=== PATIENT | female | born 1995 | race Caucasian/White ===

== ENCOUNTER 2017-08-31 10:09 | Day surgery (SDC) | payer OTHER ==
[2017-08-29 17:56] VITALS: BMI 18.6
[~2017-08-31 10:09] MED LIST: LACTATED RINGERS 1,000 ML IV SCH
[2017-08-31 11:21] VITALS: RESP 16; TEMP 98.9
[2017-08-31] MEDS ORDERED: LACTATED RINGERS 1,000 ML IV ONE (11:24)
[2017-08-31] MEDS ORDERED: PROPOFOL 10 MG/ML 20 ML VIAL IV ONE (12:18)
--- NOTE | 2017-08-31 12:40 | P.PCN ---
Date of Procedure: 08/31/17 Procedure(s) Performed: Brief history: Patient is a pleasant 22-year-old white female, scheduled for an elective upper endoscopy as well as colonoscopy as a part of evaluation of abdominal pain mostly in the epigastric area and change in bowel habits for the last 3 weeks' duration. She was started on Prilosec as well as Bentyl with relief in her symptoms. Procedure performed: Esophagogastroduodenoscopy with biopsy Colonoscopy Preoperative diagnosis: Epigastric pain Change in bowel habits Anesthesia: MAC Procedure: After informed consent was obtained from the patient was brought into the endoscopy unit and IV sedation was administered by anesthesia under continuous monitoring. Initially upper endoscopy was done. The Olympus GF 160 video endoscope was inserted inserted into the mouth and esophagus intubated without any difficulty and was gradually advanced into the stomach and duodenum and carefully examined. The bulb and second part of the duodenum appeared normal. The scope was then withdrawn into the stomach adequately insufflated with air and upon careful examination the antrum had patchy areas of erythema consistent with gastritis and biopsies were done from this area. The body, cardia and fundus appeared normal. The scope was then withdrawn into the esophagus. The GE junction was located at 40 cm to the incisors. It appeared regular with no erythema erosions or ulcerations. biopsies were done from the distal esophagus. Rest of the esophagus appeared normal. Patient tolerated the procedure well. At this time the patient continued to remain sedation. Initial digital rectal examination was normal. Olympus CF 160 video colonoscope was then inserted into the rectum and gradually advanced to the cecum without any difficulty. Careful examination was performed as the scope was gradually being withdrawn. The prep was excellent. terminal ileum was intubated and 20 cm visualized and appeared normal. The cecum, ascending colon, transverse colon, descending colon, sigmoid colon and rectum appeared normal. Retroflexion was performed in the rectum and no lesions were noted. Patient tolerated the procedure well. Impression: 1. Upper endoscopy revealed minimal antral gastritis but no evidence of esophagitis or peptic ulcer disease 2. Colonoscopy is within normal limits with no evidence of colitis or colorectal neoplasia. Recommendations: Findings of this examination were discussed with the patient as well as her family. She was advised to follow with the biopsy results. She will continue with Prilosec 20 mg daily and follow antireflux measures.
[2017-08-31 13:05] VITALS: BP 111/74; PULSE 70
== END 2017-08-31 13:19 | disposition home or self-care (01) ==
LOC: ORWHC2ENDO 10:09
PROVIDERS: ATTEND Internal Medicine Gastroenterology
DX: K29.50 Unspecified chronic gastritis without bleeding (principal); Z87.891 Personal history of nicotine dependence; I47.1 Supraventricular tachycardia; Z79.2 Long term (current) use of antibiotics; Z79.899 Other long term (current) drug therapy
CPT/HCPCS: 81025; 45378; 43239; J2704; 88305

== ENCOUNTER 2017-11-01 21:42 | Inpatient (IN) | payer OTHER ==
[2017-11-01] MEDS ORDERED: ACETAMINOPHEN TAB 500 MG TAB PO STA (23:20)
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
[2017-11-02 01:06] LABS: Amphetamine Screen,Urine Not Detected (NotDetected); Barbiturate Screen,Urine Detected (NotDetected); Benzodiazepines Screen,Urine Not Detected (NotDetected); Cocaine Screen,Urine Not Detected (NotDetected); Methadone Screen, Urine Not Detected (NotDetected); Opiate Screen,Urine Not Detected (NotDetected); Oxycodone Screen, Urine Not Detected (NotDetected); Phencyclidine Screen,Urine Not Detected (NotDetected); Tricyclic Antidepressant,Urine Not Detected (NotDetected); Urn Cannabinoid Scrn Detected (NotDetected)
[2017-11-02 03:01] VITALS: RESP 16
[2017-11-02] MEDS ORDERED: MAGNESIUM HYDROXIDE 2,400 MG/10 ML CUP PO PRN (05:05)
[2017-11-02] MEDS ORDERED: LORazepam 1 MG TAB PO PRN (05:05)
[2017-11-02] MEDS ORDERED: ACETAMINOPHEN TAB 325 MG TAB PO PRN (05:05)
[2017-11-02] MEDS ORDERED: MAG HYDROX/AL HYDROX/SIMETH 30 ML CUP PO PRN (05:05)
[2017-11-02 06:20] VITALS: BP 99/67; PULSE 75; TEMP 98.2; BMI 19.1
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
[2017-11-02] MEDS ORDERED: LORATADINE 10 MG TAB PO SCH (09:00)
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
[2017-11-02] MEDS: IPRATROPIUM-ALBUTEROL 3 ML NEB INHALATION SCH ×2 (10:41→14:03)
[2017-11-02 11:42] LABS: Basophils % (A) 1 %; Eosinophils # (A) 0.2 k/uL (0-0.7); Eosinophils % (A) 4 %; HCT 39.2 % (34.0-46.0); HGB 13.3 gm/dL (11.4-16.0); Lymphocytes # (A) 1.3 k/uL (1.0-4.8); Lymphocytes % (A) 27 %; MCH 30.7 pg (25.0-35.0); MCHC 33.9 g/dL (31.0-37.0); MCV 90.6 fL (80.0-100.0); Mean Platelet Volume 7.5; Monocytes # (A) 0.6 k/uL (0-1.0); Monocytes % (A) 12 %; Neutrophils # (A) 2.6 k/uL (1.3-7.7); Neutrophils % (A) 54 %; Platelet Count 258 k/uL (150-450); RBC 4.33 m/uL (3.80-5.40); WBC 4.8 k/uL (3.8-10.6)
[2017-11-02] MEDS ORDERED: PRENATAL VIT-IRON-FOLIC ACID 1 EACH CAP PO SCH (12:00)
[2017-11-02 12:03] LABS: ALT 27 U/L (9-52); AST 20 U/L (14-36); Albumin 4.3 g/dL (3.5-5.0); Alkaline Phosphatase 66 U/L (38-126); Anion Gap 13 mmol/L; Blood Urea Nitrogen 8 mg/dL (7-17); Calcium 9.5 mg/dL (8.4-10.2); Carbon Dioxide 26 mmol/L (22-30); Chloride 104 mmol/L (98-107); Cholesterol 109 mg/dL (<200); Glucose 103 mg/dL (74-99); HDL Cholesterol 38 mg/dL (40-60); LDL Cholesterol,Calculated 53 mg/dL (0-99); Potassium 4.4 mmol/L (3.5-5.1); Sodium 143 mmol/L (137-145); Total Bilirubin 0.2 mg/dL (0.2-1.3); Total Protein 7.4 g/dL (6.3-8.2); Triglycerides 88 mg/dL (<150)
--- NOTE | 2017-11-02 12:59 | XR ---
EXAMINATION TYPE: XR chest 2V DATE OF EXAM: 11/02/2017 COMPARISON: Chest x-ray January 29, 2013 HISTORY: Cough and congestion. TECHNIQUE: Frontal and lateral views of the chest are obtained. FINDINGS: There is no focal air space opacity, pleural effusion, or pneumothorax seen. The cardiac silhouette size is within normal limits. The osseous structures are intact. IMPRESSION: No suspicious acute infiltrate.
--- NOTE | 2017-11-02 13:36 | P.PN ---
Subjective Progress Note Date: 11/02/17 Principal diagnosis: pos UCG 22 yo female that is admitted on the psychiatric unit for depression. Patient was noted have a positive urine test. Last menstrual period status to be 10/02/2017. Beta hCG was ordered and found to be 30. She did discuss with the nurse her desire to keep this Objective - Vital Signs Vital signs: Vital Signs Temp 98.2 F 11/02/17 05:04 Pulse 75 11/02/17 05:04 Resp 16 11/02/17 05:04 BP 99/67 11/02/17 05:04 Pulse Ox 100 11/02/17 03:00 Intake & Output 11/01/17 11/02/17 11/02/17 18:59 06:59 18:59 Weight 58.8 kg 58.8 kg - Exam Defer - Labs CBC & Chem 7: 11/02/17 11:12 11/02/17 11:12 Labs: Abnormal Lab Results - Last 24 Hours (Table) 11/02/17 11/02/17 Range/Units 00:06 11:12 Creatinine 0.50 L (0.52-1.04) mg/dL Glucose 103 H (74-99) mg/dL HDL Cholesterol 38 L (40-60) mg/dL Ur Barbiturates Screen Detected H (NotDetected) U Marijuana (THC) Screen Detected H (NotDetected) Assessment and Plan Assessment: Early Plan: We'll plan to repeat Quant BHCG in 48 hours after initial blood draw. Beta hCG is too low at this time to visualize anything with transvaginal ultrasound will follow labs
--- NOTE | 2017-11-02 13:37 | P.DS ---
Providers Date of admission: 11/02/17 02:54 Expected date of discharge: 11/02/17 Attending physician: Austin Rogel Consults: 11/02/17 05:05 Consult Physician Routine Consulting Provider: Mariano Darby Consult Reason/Comments: medical management Do you want consulting provider notified?: Already Contacted 11/02/17 06:39 Consult Physician Routine Consulting Provider: Pili Jaimes Consult Reason/Comments: newly dx Do you want consulting provider notified?: Yes, Notify in am Primary care physician: Yvan [facility] Course: Patient had her psychiatric evaluation, physical examination and psychosocial evaluation. After psychiatric evaluation it was agreed not to start her on any psychiatric medications since she is and psychiatric medications are probably not useful for her condition. Patient had talked to her boyfriend who apparently is very supportive and welcomes her home and patient agreed to continue with outpatient treatment including DBT. beam worker contacted the boyfriend who confirmed with the discharge plan. Condition on discharge: This is a ambulatory looking female with good hygiene. She is polite and cooperative she does not show any psychomotor agitation or retardation. Her speech is spontaneous relevant and goal-directed. She continues to deny suicide and homicide thoughts. She does not have any clinical evidence of hallucinations or delusional thinking. She is well oriented with adequate memory concentration general fund of knowledge etc. However insight and judgment have not changes significantly since this morning. Diagnosis on discharge: Borderline personality disorder F 60.3. Cannabis use disorder severe F 12.20. History of alcohol use disorder severe F 10.20. NKDA. History of SVT and Yi Parkinson's syndrome. First month . Patient was advised and agreed to learn better coping skills through DBT, seek alcohol and drug counseling, not to drink alcohol or use drugs. Patient Condition at Discharge: Good Plan - Discharge Summary Discharge Rx Participant: No New Discharge Prescriptions: New Acetaminophen Tab [Tylenol] 650 mg PO Q4HR PRN tab PRN Reason: Pain/Discomfort Ipratropium-Albuterol Nebulize [Duoneb 0.5 mg-3 mg/3 ml Soln] 3 ml INHALATION RT-QID ampul.neb Loratadine [Claritin] 10 mg PO DAILY tab Glm-Bvgo-Tfwdc Acid [-U Capsule (formulary)] 1 each PO DAILY @1200 cap Continue methylPREDNISolone [Medrol Dose Pack] See Taper PO DIRECTED Butalb/APAP/Caff 50-325-40Mg [Fioricet 50-325-40] 1 tab PO Q4H PRN PRN Reason: Headache Omeprazole [PriLOSEC] 20 mg PO AC-BID Discontinued Sertraline HCl [Zoloft] 50 mg PO DAILY ALPRAZolam [Xanax] 0.5 mg PO DAILY PRN PRN Reason: Anxiety Discharge Medication List Butalb/APAP/Caff 50-325-40Mg [Fioricet 50-325-40] 1 tab PO Q4H PRN 11/01/17 [ History] Omeprazole [PriLOSEC] 20 mg PO AC-BID 11/01/17 [History] methylPREDNISolone [Medrol Dose Pack] See Taper PO DIRECTED 11/01/17 [History ] Acetaminophen Tab [Tylenol] 650 mg PO Q4HR PRN tab 11/02/17 [Rx] Ipratropium-Albuterol Nebulize [Duoneb 0.5 mg-3 mg/3 ml Soln] 3 ml INHALATION RT -QID ampul.neb 11/02/17 [Rx] Loratadine [Claritin] 10 mg PO DAILY tab 11/02/17 [Rx] Bpn-Znpa-Mgxpr Acid [-U Capsule (formulary)] 1 each PO DAILY@ 1200 cap 11/02/17 [Rx] Follow up Appointment(s)/Referral(s): [facility] [Outside] - 11/05/17 9:00 am (w/ Brenda Serrano. Patient to arrive at 8:30am for paperwork) Yvan Dixon DO [Primary Care Provider] - 1-2 days Activity/Diet/Wound Care/Special Instructions: Activity and Diet as tolerated. Avoid the use of street drugs and alcohol. Take all medications as prescribed, when you are in need of refills contact your medical doctor or psychiatrist. Please go to all scheduled outpatient appointments for aftercare treatment. If symptoms return or worsen you can call the crisis line @ and/or return to the nearest emergency room for evaluation.
== END 2017-11-02 15:08 | disposition home or self-care (01) | DRG 881 ==
LOC: EC 21:42 → 3MHU 11-02 02:54
PROVIDERS: ADMIT Psychiatry & Neurology Psychiatry; ATTEND Psychiatry & Neurology Psychiatry
DX: F32.9 Major depressive disorder, single episode, unspecified (principal); F60.3 Borderline personality disorder; F12.20 Cannabis dependence, uncomplicated; F10.20 Alcohol dependence, uncomplicated; F41.9 Anxiety disorder, unspecified; F90.9 Attention-deficit hyperactivity disorder, unspecified type; I45.6 Pre-excitation syndrome; M54.30 Sciatica, unspecified side; X78.9XXA Intentional self-harm by unspecified sharp object, initial encounter; Z32.01 Encounter for pregnancy test, result positive; Z81.8 Family history of other mental and behavioral disorders; Z83.2 Family history of diseases of the blood and blood-forming organs and certain disorders involving the immune mechanism; G56.01 Carpal tunnel syndrome, right upper limb; Z91.5 Personal history of self-harm; Z79.52 Long term (current) use of systemic steroids; T14.8XXA Other injury of unspecified body region, initial encounter; X83.8XXA Intentional self-harm by other specified means, initial encounter
CPT/HCPCS: 71046; 80053; 80061; 80306; 81025; 82075; 83036; 84443; 84702; 85025; 99284

== ENCOUNTER 2018-04-04 01:50 | Inpatient (IN) | payer OTHER ==
[2018-04-04] MEDS ORDERED: SODIUM CHLORIDE 0.9% 1,000 ML IV STA (02:02)
--- NOTE | 2018-04-04 02:13 | ED ---
General Adult HPI - General Chief complaint: Trauma Stated complaint: Mental health Time Seen by Provider: 04/04/18 01:51 Source: patient, police, EMS Mode of arrival: EMS Limitations: no limitations - History of Present Illness Initial comments: Marichuy is a 22-year-old female with a history of depression is brought to the ED today via EMS and police for evaluation of suicidal thoughts and an attempted hanging. Patient became upset this evening. She has been out of her Seroquel for 3 days. She attempted to hang herself using an extension cord. When that was unsuccessful she decided that she would kill herself by dropping her behavioral science chair in the bathtub. Her boyfriend could hear her running a bath and she wasn't responsive he broke down the door to her bathroom and found her. The which time he decided he needed to call police to assist in caring for her. Patient states she has a history of depression, she was admitted to our facility a month ago. She was discharged on oral Seroquel which she was taking until she ran out a few days ago. Patient is tearful and apologetic. - Related Data Home Medications Medication Instructions Recorded Confirmed Butalb/APAP/Caff 50-325-40Mg 1 tab PO Q4H PRN 11/01/17 11/02/17 [Fioricet 50-325-40] Omeprazole [PriLOSEC] 20 mg PO AC-BID 11/01/17 11/02/17 methylPREDNISolone [Medrol Dose See Taper PO DIRECTED 11/01/17 11/02/17 Pack] Previous Rx's Medication Instructions Recorded Acetaminophen Tab [Tylenol] 650 mg PO Q4HR PRN tab 11/02/17 Ipratropium-Albuterol Nebulize 3 ml INHALATION RT-QID ampul.neb 11/02/17 [Duoneb 0.5 mg-3 mg/3 ml Soln] Loratadine [Claritin] 10 mg PO DAILY tab 11/02/17 Lis-Plui-Mkorn Acid 1 each PO DAILY@1200 cap 11/02/17 [-U Capsule (formulary)] Allergies Allergy/AdvReac Type Severity Reaction Status Date / Time No Known Allergies Allergy Verified 11/02/17 05:52 Review of Systems ROS Statement: Those systems with pertinent positive or pertinent negative responses have been documented in the HPI. ROS Other: All systems not noted in ROS Statement are negative. Past Medical History Additional Past Medical History / Comment(s): SVT, WPW Syndrome, frequent UTI tx with antibiotics History of Any Multi-Drug Resistant Organisms: None Reported Past Surgical History: Tonsillectomy Additional Past Surgical History / Comment(s): apicoectomy front tooth,pyloric stenosis surgery as Past Anesthesia/Blood Transfusion Reactions: No Reported Reaction Past Psychological History: Anxiety, Bipolar, Depression, Panic Disorder Smoking Status: Current every day smoker Past Alcohol Use History: Occasional Past Drug Use History: Marijuana - Past Family History Brother(s) Family Medical History: Blood Disorder, Deep Vein Thrombosis (DVT), Pulmonary Embolus Additional Family Medical History / Comment(s): antithrombin 3 bleeding disorder Father Family Medical History: Sleep Apnea/CPAP/BIPAP General Exam - General Exam Comments Initial Comments: GENERAL: Patient appears anxious, is crying HENT: Normocephalic, Atraumatic. Neck has ligature jaimes on the bilateral anterior lateral sides of the neck overlying the platysma. There is no carotid bruit bilaterally. No significant lymphadenopathy is noted. Oropharynx is clear. Moist mucous membranes. Neck has full range of motion without eliciting any pain. EYES: The sclera were anicteric and conjunctiva were pink and moist. Extraocular movements were intact and pupils were equal round and reactive to light. Eyelids were unremarkable. PULMONARY: Tachypnea secondary to crying. Unlabored respirations. Good breath sounds bilaterally. No audible rales rhonchi or wheezing was noted. CARDIOVASCULAR: There is a regular rate and rhythm without any murmurs gallops or rubs. Bilateral upper and lower extremities are warm and well perfused ABDOMEN: Soft and nontender with normal bowel sounds. SKIN: Ligature jaimes on the neck, no other injuries noted NEUROLOGIC: Patient is alert and oriented x3. Cranial nerves II through XII are grossly intact. Motor and sensory are also intact. Normal speech, volume and content. Symmetrical smile. MUSCULOSKELETAL: Normal extremities with adequate strength and full range of motion. No lower extremity swelling or edema. No calf tenderness. LYMPHATICS: No significant lymphadenopathy is noted PSYCHIATRIC: Depressed, suicidal, tearful and apologetic Limitations: no limitations Limitations: no limitations Course Vital Signs 04/04/18 01:52 Temperature 97.5 F L Pulse Rate 95 Respiratory 18 Rate Blood Pressure 123/86 O2 Sat by Pulse 98 Oximetry EKG Findings - EKG Comments: EKG Findings:: EKG obtained at 3:04 AM, rate of 76, rhythm is sinus, normal axis , normal intervals, MT 180, QRS 92, QTc 445. There are no acute ST elevations or depressions no evidence of acute ischemia or infarction. Medical Decision Making - Medical Decision Making Patient arrived in EMS and police custody for a psychiatric evaluation after an attempted hanging The patient was seen and evaluated upon arrival - it was noted that the patient had ligature jaimes on her neck at which time a level II trauma was activated Labs reveal elevated alcohol level mildly elevated lactic acids, IV fluids were infused Imaging with no acute findings Patient was determined to be sober at 5:10 AM, EPS was notified, they evaluated the patient, they recommend inpatient psychiatric hospitalization. Patient declined to sign in voluntarily and assert was completed. After this was completed the patient then asked agreed to sign in voluntarily. Either way the patient will be admitted to a psychiatric facility - Lab Data Result diagrams: 04/04/18 02:10 04/04/18 02:10 Lab Results 04/04/18 04/04/18 04/04/18 Range/Units 02:10 02:10 02:10 WBC 4.6 (3.8-10.6) k/uL RBC 4.36 (3.80-5.40) m/uL Hgb 13.6 (11.4-16.0) gm/dL Hct 40.8 (34.0-46.0) % MCV 93.7 (80.0-100.0) fL MCH 31.2 (25.0-35.0) pg MCHC 33.3 (31.0-37.0) g/dL RDW 12.9 (11.5-15.5) % Plt Count 337 (150-450) k/uL Neutrophils % 46 % Lymphocytes % 45 % Monocytes % 4 % Eosinophils % 2 % Basophils % 1 % Neutrophils # 2.1 (1.3-7.7) k/uL Lymphocytes # 2.0 (1.0-4.8) k/uL Monocytes # 0.2 (0-1.0) k/uL Eosinophils # 0.1 (0-0.7) k/uL Basophils # 0.0 (0-0.2) k/uL PT (9.0-12.0) sec INR (<1.2) APTT (22.0-30.0) sec Sodium 143 (137-145) mmol/L Potassium 3.6 (3.5-5.1) mmol/L Chloride 112 H (98-107) mmol/L Carbon Dioxide 19 L (22-30) mmol/L Anion Gap 12 mmol/L BUN 9 (7-17) mg/dL Creatinine 0.63 (0.52-1.04) mg/dL Est GFR (CKD-EPI)AfAm >90 (>60 ml/min/1.73 sqM) Est GFR (CKD-EPI)NonAf >90 (>60 ml/min/1.73 sqM) Glucose 95 (74-99) mg/dL Lactic Ac Sepsis Rflx Plasma Lactic Acid Huang (0.7-2.0) mmol/L Calcium 9.5 (8.4-10.2) mg/dL Total Bilirubin 0.3 (0.2-1.3) mg/dL AST 18 (14-36) U/L ALT 19 (9-52) U/L Alkaline Phosphatase 48 (38-126) U/L Total Creatine Kinase 86 (30-135) U/L CK-MB (CK-2) 0.8 (0.0-2.4) ng/mL CK-MB (CK-2) Rel Index 0.9 Troponin I <0.012 (0.000-0.034) ng/mL Total Protein 7.7 (6.3-8.2) g/dL Albumin 4.4 (3.5-5.0) g/dL Amylase 64 (30-110) U/L Lipase 78 (23-300) U/L Serum Alcohol 128 mg/dL Blood Type Blood Type Recheck Antibody Screen Spec Expiration Date 04/04/18 04/04/18 04/04/18 Range/Units 02:10 02:10 02:10 WBC (3.8-10.6) k/uL RBC (3.80-5.40) m/uL Hgb (11.4-16.0) gm/dL Hct (34.0-46.0) % MCV (80.0-100.0) fL MCH (25.0-35.0) pg MCHC (31.0-37.0) g/dL RDW (11.5-15.5) % Plt Count (150-450) k/uL Neutrophils % % Lymphocytes % % Monocytes % % Eosinophils % % Basophils % % Neutrophils # (1.3-7.7) k/uL Lymphocytes # (1.0-4.8) k/uL Monocytes # (0-1.0) k/uL Eosinophils # (0-0.7) k/uL Basophils # (0-0.2) k/uL PT 10.2 (9.0-12.0) sec INR 1.0 (<1.2) APTT 24.0 (22.0-30.0) sec Sodium (137-145) mmol/L Potassium (3.5-5.1) mmol/L Chloride (98-107) mmol/L Carbon Dioxide (22-30) mmol/L Anion Gap mmol/L BUN (7-17) mg/dL Creatinine (0.52-1.04) mg/dL Est GFR (CKD-EPI)AfAm (>60 ml/min/1.73 sqM) Est GFR (CKD-EPI)NonAf (>60 ml/min/1.73 sqM) Glucose (74-99) mg/dL Lactic Ac Sepsis Rflx Plasma Lactic Acid Huang 3.0 H* (0.7-2.0) mmol/L Calcium (8.4-10.2) mg/dL Total Bilirubin (0.2-1.3) mg/dL AST (14-36) U/L ALT (9-52) U/L Alkaline Phosphatase (38-126) U/L Total Creatine Kinase (30-135) U/L CK-MB (CK-2) (0.0-2.4) ng/mL CK-MB (CK-2) Rel Index Troponin I (0.000-0.034) ng/mL Total Protein (6.3-8.2) g/dL Albumin (3.5-5.0) g/dL Amylase (30-110) U/L Lipase (23-300) U/L Serum Alcohol mg/dL Blood Type O Positive Blood Type Recheck No Antibody Screen NEGATIVE Spec Expiration Date 04/07/2018 - 230904/04/18 Range/Units 02:55 WBC (3.8-10.6) k/uL RBC (3.80-5.40) m/uL Hgb (11.4-16.0) gm/dL Hct (34.0-46.0) % MCV (80.0-100.0) fL MCH (25.0-35.0) pg MCHC (31.0-37.0) g/dL RDW (11.5-15.5) % Plt Count (150-450) k/uL Neutrophils % % Lymphocytes % % Monocytes % % Eosinophils % % Basophils % % Neutrophils # (1.3-7.7) k/uL Lymphocytes # (1.0-4.8) k/uL Monocytes # (0-1.0) k/uL Eosinophils # (0-0.7) k/uL Basophils # (0-0.2) k/uL PT (9.0-12.0) sec INR (<1.2) APTT (22.0-30.0) sec Sodium (137-145) mmol/L Potassium (3.5-5.1) mmol/L Chloride (98-107) mmol/L Carbon Dioxide (22-30) mmol/L Anion Gap mmol/L BUN (7-17) mg/dL Creatinine (0.52-1.04) mg/dL Est GFR (CKD-EPI)AfAm (>60 ml/min/1.73 sqM) Est GFR (CKD-EPI)NonAf (>60 ml/min/1.73 sqM) Glucose (74-99) mg/dL Lactic Ac Sepsis Rflx Y Plasma Lactic Acid Huang (0.7-2.0) mmol/L Calcium (8.4-10.2) mg/dL Total Bilirubin (0.2-1.3) mg/dL AST (14-36) U/L ALT (9-52) U/L Alkaline Phosphatase (38-126) U/L Total Creatine Kinase (30-135) U/L CK-MB (CK-2) (0.0-2.4) ng/mL CK-MB (CK-2) Rel Index Troponin I (0.000-0.034) ng/mL Total Protein (6.3-8.2) g/dL Albumin (3.5-5.0) g/dL Amylase (30-110) U/L Lipase (23-300) U/L Serum Alcohol mg/dL Blood Type Blood Type Recheck Antibody Screen Spec Expiration Date Disposition Clinical Impression: Suicidal ideation, Suicide attempt by hanging Disposition: TRANSFER TO PSYCH HOSP/UNIT Condition: Serious Is patient prescribed a controlled substance at d/c from ED?: No Referrals: Santiago Mahoney MD [Primary Care Provider] - 1-2 days
--- NOTE | 2018-04-04 02:32 | XR ---
EXAMINATION TYPE: XR chest 1V portable DATE OF EXAM: 04/04/2018 COMPARISON: 11/02/2017 HISTORY: Attempted hanging. Trauma. Chest pain. TECHNIQUE: Single frontal view of the chest is obtained. FINDINGS: Heart and mediastinum are normal. Lungs are clear. Diaphragm is normal. Bony thorax appear s normal. IMPRESSION: Normal chest. No change.
[2018-04-04 02:33] LABS: Basophils % (A) 1 %; Eosinophils # (A) 0.1 k/uL (0-0.7); Eosinophils % (A) 2 %; HCT 40.8 % (34.0-46.0); HGB 13.6 gm/dL (11.4-16.0); Lymphocytes % (A) 45 %; MCH 31.2 pg (25.0-35.0); MCHC 33.3 g/dL (31.0-37.0); MCV 93.7 fL (80.0-100.0); Mean Platelet Volume 6.5; Monocytes # (A) 0.2 k/uL (0-1.0); Monocytes % (A) 4 %; Neutrophils # (A) 2.1 k/uL (1.3-7.7); Neutrophils % (A) 46 %; Platelet Count 337 k/uL (150-450); RBC 4.36 m/uL (3.80-5.40); RDW 12.9 % (11.5-15.5); WBC 4.6 k/uL (3.8-10.6)
--- NOTE | 2018-04-04 02:38 | CT ---
EXAMINATION TYPE: CT angio neck DATE OF EXAM: 04/04/2018 HISTORY: pt. attempted to hang herself COMPARISON: None CT DLP: 309 mGycm. Automated Exposure Control for Dose Reduction was Utilized. TECHNIQUE: CTA scan of the neck is performed with IV Contrast, patient injected with 65 mL of Isovue 370, axial images are obtained, coronal and sagittal reformatted images are reviewed. Three-D recons tructed images are created on an independent workstation and reviewed. FINDINGS: There is normal branching pattern of the great vessels on the aortic arch. There is bilateral patency of the vertebral arteries which are fairly symmetric. There is arterial flow in the common internal and external carotid arteries bilaterally. There is no evidence of stenosis. There is no evidence of aneurysm or neovascularity. There is no evidence of dissection. Aortic arch appears normal. The cervi margot soft tissues are unremarkable. There are a few anterior triangle cervical lymph nodes that measur e up to 9 x 6 mm. Prevertebral soft tissues appear normal. Cervical spine appears normal. IMPRESSION: Normal CT angiogram of the neck.
[2018-04-04 02:43] LABS: ALT 19 U/L (9-52); AST 18 U/L (14-36); Albumin 4.4 g/dL (3.5-5.0); Alkaline Phosphatase 48 U/L (38-126); Amylase 64 U/L (30-110); Anion Gap 12 mmol/L; Blood Urea Nitrogen 9 mg/dL (7-17); Calcium 9.5 mg/dL (8.4-10.2); Carbon Dioxide 19 mmol/L (22-30); Chloride 112 mmol/L (98-107); Glucose 95 mg/dL (74-99); Lipase 78 U/L (23-300); Potassium 3.6 mmol/L (3.5-5.1); Prothrombin Time 10.2 sec (9.0-12.0); Sodium 143 mmol/L (137-145); Total Bilirubin 0.3 mg/dL (0.2-1.3); Total Protein 7.7 g/dL (6.3-8.2)
[2018-04-04 02:54] LABS: Creatine Kinase 86 U/L (30-135)
[2018-04-04 02:55] LABS: Alcohol 128 mg/dL
[2018-04-04 03:07] LABS: Creatine Kinase MB 0.8 ng/mL (0.0-2.4); Troponin I <0.012 ng/mL (0.000-0.034)
[2018-04-04] MEDS ORDERED: SODIUM CHLORIDE 0.9% 1,000 ML IV ONE (03:41)
[2018-04-04] MEDS ORDERED: LORazepam 1 MG TAB PO PRN (09:06)
[2018-04-04] MEDS ORDERED: MAGNESIUM HYDROXIDE 2,400 MG/10 ML CUP PO PRN (09:06)
[2018-04-04] MEDS ORDERED: MAG HYDROX/AL HYDROX/SIMETH 30 ML CUP PO PRN (09:06)
[2018-04-04] MEDS ORDERED: ACETAMINOPHEN TAB 325 MG TAB PO PRN (09:06)
[2018-04-04] MEDS ORDERED: ZIPRASIDONE 20 MG VIAL IM PRN (09:06)
[2018-04-04] MEDS ORDERED: LORazepam 2 MG/ML INJ IM PRN (09:11)
[2018-04-04] MEDS ORDERED: ALBUTEROL INHALER 60 PUFF/8 GM INHALER INHALATION PRN ×2 (10:44→11:44)
[2018-04-04] MEDS ORDERED: FAMOTIDINE 20 MG TAB PO SCH (11:00)
[2018-04-04 11:01] LABS: Appearance,Urine Clear (Clear); Bilirubin,Urine Negative (Negative); Blood,Urine Negative (Negative); Color,Urine Yellow; Glucose,Urine (UA) Negative (Negative); Ketones,Urine 2+ (Negative); Leukocyte Esterase,Urine Negative (Negative); Nitrite,Urine Negative (Negative); Protein,Urine Negative (Negative); Specific Gravity,Urine 1.023 (1.001-1.035); Urobilinogen,Urine <2.0 mg/dL (<2.0)
[2018-04-04 11:15] LABS: Amphetamine Screen,Urine Not Detected (NotDetected); Barbiturate Screen,Urine Detected (NotDetected); Benzodiazepines Screen,Urine Not Detected (NotDetected); Cocaine Screen,Urine Not Detected (NotDetected); Methadone Screen, Urine Not Detected (NotDetected); Opiate Screen,Urine Not Detected (NotDetected); Oxycodone Screen, Urine Not Detected (NotDetected); Phencyclidine Screen,Urine Not Detected (NotDetected); Tricyclic Antidepressant,Urine Not Detected (NotDetected); Urn Cannabinoid Scrn Detected (NotDetected)
[2018-04-04] MEDS ORDERED: INFLUENZA VACCINE (6 MOS+) 60 MCG/0.5 ML SYRINGE IM ONE (11:27)
--- NOTE | 2018-04-04 12:57 | HP ---
HISTORY AND PHYSICAL DATE OF SERVICE/DICTATION: 04/04/2018 IDENTIFYING DATA: This patient is a 22-year-old female who was admitted to the mental health unit through the emergency room on a petition and clinical certificate with the patient making threats of committing suicide. HISTORY OF PRESENT ILLNESS: The patient presents with a petition stating "the patient states she is depressed. She has been without her medications, attempted to hang herself." The patient states that last evening she had gotten involved in a verbal altercation with her fiance. He threatened to leave the residence. She became upset and had suicidal thoughts while intoxicated with alcohol. She put a electrical cord around her neck after aborting that attempt. She went into the bathroom and ran the Water and threatened to throw a hair rice drier operator in the tub while she was in it. She states she did not harm herself with the electrical cord. She states she never was in the bath tub and that she made the statements to alarm her fiance to let him know how she felt. She states she has done this several times in the past. The patient was on this mental health unit in November under the care of Dr. Joe small. She does not work with a psychiatrist on the outside. She does see a therapist intermittently. She has been on Seroquel 200 mg at bedtime and finds that effective. She endorses episodes that may appear hypomanic in nature. She has had depressive episodes in the past. She states she is currently not suicidal. She has no homicidal ideation. She is endorsing no symptoms of psychosis. She is asking to be discharged. She does describe having anxiety in a regular basis and states her primary care physician has her on Klonopin 0.5 mg 3 times a day. PAST PSYCHIATRIC HISTORY: This is the patient's second inpatient psychiatric admission. She is reporting no true history of suicide attempts. She does have a history of cutting behavior which stopped last November. She states she has been on several psychotropics in the past including Xanax, BuSpar, and Celexa. Most recently, she has been on Seroquel 200 mg at bedtime and finds that helpful. She wonders if an increased dose would be more stabilizing. She states that she has worked with a therapist she have on at [facility] [place], but is currently but currently does not does not have an appointment scheduled with her. PAST MEDICAL HISTORY: History of migraines. ALLERGIES: CODEINE. CHEMICAL DEPENDENCY HISTORY: She reports using alcohol every 3 months. She does have a history of drinking heavily prior to her last admission for about 6 months where she would consume 12 beers and a pint of liquor. She has never been placed in residential treatment for chemical dependency reasons. FAMILY PSYCHIATRIC HISTORY: Her father is known to have bipolar disorder and ADHD. Her mother is known to have depression. Family chemical dependency history, she states her father was alcohol dependent. LEGAL HISTORY: None reported. ABUSE HISTORY: None, reported. SOCIAL HISTORY: The patient is 22 years old. She is and in the process of getting . She states she has a new fiance. They reside together. She has a 3-1/2-year-old son whom she shares custody with her current . She is employed at [employer] for the last month. She graduated high school and is participating in online schooling. She states that she has a plan of becoming a physician. She has 2 brothers. MENTAL STATUS EXAM: The patient is a tall, thin female, appearing her stated age. She has her hair dyed heel boom operator. She is dressed in hospital attire. She has several visible tattoos. Eye contact is appropriate. Speech is fluent, spontaneous non pressured. She endorses a sad and anxious mood. She reports no current suicidal ideation, intent, or plan. She is reporting no homicidal ideation, intent, or plan. She is reporting no auditory or visual hallucinations or any specific delusions. She demonstrates no observed evidence of psychosis. She is demonstrating no tangential thinking, loose associations or flight of ideas. There is no verbal or physical aggressiveness displayed. She is calm and cooperative throughout the interaction. She is oriented to person, place, and date. She is able to name the days of the week backwards. IMPRESSION: 1. Depression, unspecified, rule out major depressive disorder versus bipolar 2 depression, borderline personality disorder traits. 2. History of Yqakh-Tqvikechx-Xclcw syndrome, migraines, gastritis. PLAN: The patient has been admitted to the mental health unit. She is willing to sign in voluntarily. We reviewed her presenting symptoms and treatment options. We decided we would titrate the Seroquel to 300 mg at bedtime as it may provide more mood stabilization in the case that she may have bipolar 2 disorder. She clearly has borderline personality disorder traits and we spoke about those in length. She is being monitored in terms of vitals. Ativan is available for any alcohol withdrawal symptoms. She will meet with Internal Medicine for routine history and physical exam. Social Work will meet with the patient to complete a psychosocial assessment. We will monitor her for safety. Social Work will arrange a support meeting. I do not anticipate she will need a lengthy stay and we will discuss her care during the next treatment team meeting. JUDI / RIANAN: [id number] /
[2018-04-04] MEDS: PANTOPRAZOLE 40 MG TABLET PO SCH (17:30)
[2018-04-04] MEDS ORDERED: QUEtiapine 100 MG TAB PO SCH ×2 (21:00)
[2018-04-05 06:25] VITALS: BP 108/53; PULSE 83; RESP 18; TEMP 98.3
[2018-04-05] MEDS: PANTOPRAZOLE 40 MG TABLET PO SCH (07:47)
[2018-04-05] MEDS ORDERED: FAMOTIDINE 20 MG TAB PO SCH ×2 (09:00)
--- NOTE | 2018-04-05 11:08 | P.DS ---
Providers Date of admission: 04/04/18 09:04 Expected date of discharge: 04/05/18 Attending physician: Kash Nelson Consults: 04/04/18 09:06 Consult Physician Routine Consulting Provider: Santiago Mahoney Consult Reason/Comments: H &P and medical management Do you want consulting provider notified?: Yes Primary care physician: Santiago Mahoney - Discharge Diagnosis(es) (1) Depression Current Visit: Yes Status: Acute Priority: High (2) Alcohol use disorder Current Visit: Yes Status: Acute Priority: Medium Hospital Course: Brief summary of admission note: This patient is a 22-year-old female who was admitted to the mental health unit through the emergency room on a petition and clinical certificate indicating she was suicidal. The patient had told her fianc that she tried to hang herself with an electrical cord and that she was going to get in the bathtub and try to electrocute herself with a geography department chair. She states that she did not actually hang herself with a cord and she never did get into the bathtub. She reports that she said those things to convey to her fianc how upset she was. This occurred in the context of her being intoxicated with alcohol. For full detail please refer to my psychiatric evaluation dated 04/04/2018. Summary of hospital course: The patient was admitted to the mental health unit she did sign in voluntarily. She had previously been treated with Seroquel and had been off of her medication for 2 days. We discussed options but decided to restart the Seroquel and we titrated the dose to 300 mg at bedtime. She described history of depressive episodes. She definitely describes borderline personality disorder traits and we will employ some unhealthy coping skills. There is a question as to whether not she has had hypomanic episodes. She describes times that are similar but is not entirely clear. The patient has been cooperative she's been attending groups. She states that she did well with the increased dose of Seroquel last evening. She did meet with her primary care physician this morning for routine history and physical exam. She reports that she truly had no suicidal intent she endorsed no suicidal ideation while here on the mental health unit. She is agreeable to having social work conduct a support meeting. We discussed the importance of her working with her individual therapist at least weekly utilizing CBT and DBT principles. She does not wish to participate in inpatient chemical dependency treatment and feels that she is able to discontinue alcohol use on her own. Mental status exam: The patient is a tall thin 22-year-old female of descent. She is dressed in her own clothing eye contact is appropriate. She has several ear piercings her hair is colored. She has good eye contact speech is fluent spontaneous nonpressured. She is reporting no suicidal or homicidal ideation intent or plan. She states her mood is good and she feels optimistic. She is reporting no auditory or visual hallucinations or any specific delusions. There is no observed evidence of psychosis. She demonstrates no tangential thinking loose associations or flight of ideas there is no evidence of hypomania or lai. She demonstrates no verbal or physical aggressiveness. Affect is euthymic. She demonstrates no involuntary repetitive movements. Insight and judgment grossly intact. She is oriented to person place and date. Impressions 1. Depression unspecified rule out bipolar 2 disorder most recent depressed rule out major depressive disorder, borderline personality disorder traits 2. History of Ipnjt-Pwwzfxvzl-Spcxh, migraines, gastritis Plan: The patient will be discharged from the mental health unit today following a successful support meeting. The patient plans on following up with her outpatient therapist at [facility] [place] social work will make those arrangements. She does not feel that she needs inpatient chemical dependency treatment. She is instructed to abstain from any use of marijuana and alcohol and any other illicit drug as those can elevate her safety risk. She plans on addressing her alcohol use with her outpatient therapist. The patient will continue on Seroquel 300 mg at bedtime. There is no imminent safety risk at this time she is appropriate for transition to outpatient care. She is instructed to return to the hospital with any acute safety concerns. Patient Condition at Discharge: Stable Plan - Discharge Summary Discharge Rx Participant: No New Discharge Prescriptions: No Action Omeprazole [PriLOSEC] 20 mg PO DAILY clonazePAM [KlonoPIN] 0.5 mg PO TID PRN PRN Reason: Anxiety QUEtiapine [SEROquel] 200 mg PO DAILY Famotidine [Pepcid] 20 mg PO DAILY Albuterol Inhaler [Ventolin Hfa Inhaler] 2 puff INHALATION RT-Q4H PRN PRN Reason: Shortness Of Breath Discharge Medication List Omeprazole [PriLOSEC] 20 mg PO DAILY 11/01/17 [History] Albuterol Inhaler [Ventolin Hfa Inhaler] 2 puff INHALATION RT-Q4H PRN 04/04/18 [ History] Famotidine [Pepcid] 20 mg PO DAILY 04/04/18 [History] QUEtiapine [SEROquel] 200 mg PO DAILY 04/04/18 [History] clonazePAM [KlonoPIN] 0.5 mg PO TID PRN 04/04/18 [History] Follow up Appointment(s)/Referral(s): Santiago Mahoney MD [Primary Care Provider] - 1-2 days
[2018-04-05 15:28] LABS: Hemoglobin A1C 4.9 % (4.0-6.0)
--- NOTE | 2018-04-06 14:14 | CONS ---
CONSULTATION PSYCH CONSULTATION: CHIEF COMPLAINT: Major depression and suicidal attempt. HISTORY OF PRESENT ILLNESS: This is another admission is 22-year-old white female who probably has bipolar depression. She has been coming to the office for several months and has been doing fairly well. She has been maintained on Seroquel 200 mg once a day, Klonopin 0.5 t.i.d. p.r.n., Fioricet, Pepcid. She apparently became upset. She ran out of some of her medication. She then tried to kill herself by hanging with an electric cord and was brought to the hospital by her fiance and his mother. REVIEW OF SYSTEMS: She is currently having no neurologic problems, change in vision or hearing, abdominal pain, chest pain, etc. Past medical history, family history, personal and social histories are unremarkable and noncontributory otherwise. She does smoke. She does not drink. She does not use other drugs. PHYSICAL EXAMINATION: Blood pressure 118/64 with a pulse of 71, respirations of 19. She is afebrile. In general, she appeared to be a tall, slender in no acute distress. Skin color is normal. Skin is warm and dry. Lymph nodes not enlarged. Head, ears, eyes, nose, mouth, and throat were normal. Neck veins not distended. Thyroid is not enlarged. Chest is clear. Cardiac exam is normal. No murmurs or extra sounds. Abdomen is soft, nontender. Extremities are normal. Neurologically she is intact. IMPRESSION: 1. Major depression. 2. Suicidal personality. 3. Probable bipolar disease. RECOMMENDATIONS: None at this time. MMODL / IJN: [id number] /
== END 2018-04-05 14:55 | disposition home or self-care (01) | DRG 881 ==
LOC: EC 01:50 → 3MHU 09:04
PROVIDERS: ADMIT Psychiatry & Neurology Psychiatry; ATTEND Psychiatry & Neurology Psychiatry
DX: F32.9 Major depressive disorder, single episode, unspecified (principal); F10.239 Alcohol dependence with withdrawal, unspecified; F17.200 Nicotine dependence, unspecified, uncomplicated; F41.0 Panic disorder [episodic paroxysmal anxiety]; F60.3 Borderline personality disorder; Z91.5 Personal history of self-harm; Z79.899 Other long term (current) drug therapy; Z81.8 Family history of other mental and behavioral disorders; Z83.2 Family history of diseases of the blood and blood-forming organs and certain disorders involving the immune mechanism; Z87.440 Personal history of urinary (tract) infections; Z88.5 Allergy status to narcotic agent
CPT/HCPCS: 36415; 70498; 71045; 80053; 80306; 80320; 81003; 81025; 82150; 82550; 82553; 83036; 83605; 83690; 84443; 84484; 85025; 85610; 85730; 86850; 86900; 86901; 90686; 96360; 96361; 99285

== ENCOUNTER 2018-06-28 14:13 | Emergency (ER) | payer OTHER ==
[2018-06-28] MEDS ORDERED: ACETAMINOPHEN TAB 500 MG TAB PO STA (14:51)
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
[2018-06-28] MEDS ORDERED: LIDOCAINE 1% INJ 10MG/ML (20 ML MDV) SQ ONE (16:06)
[2018-06-28 17:50] VITALS: BP 129/61; PULSE 82; RESP 16; TEMP 97.8
== END 2018-06-28 17:50 | disposition home or self-care (01) ==
LOC: EC 14:13
DX: S51.812A Laceration without foreign body of left forearm, initial encounter (principal); J45.909 Unspecified asthma, uncomplicated; F31.9 Bipolar disorder, unspecified; F41.0 Panic disorder [episodic paroxysmal anxiety]; F17.200 Nicotine dependence, unspecified, uncomplicated; Z79.899 Other long term (current) drug therapy; W26.0XXA Contact with knife, initial encounter; Y92.009 Unspecified place in unspecified non-institutional (private) residence as the place of occurrence of the external cause
CPT/HCPCS: 99282; 12005; J2001

== ENCOUNTER 2020-08-06 23:44 | Emergency (ER) | payer OTHER ==
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
[2020-08-07 00:41] VITALS: BP 122/89; PULSE 99; RESP 18; TEMP 76.4
== END 2020-08-07 00:53 | disposition home or self-care (01) ==
LOC: EC 23:44
DX: S00.83XA Contusion of other part of head, initial encounter (principal); F10.129 Alcohol abuse with intoxication, unspecified; M79.89 Other specified soft tissue disorders; J45.909 Unspecified asthma, uncomplicated; F41.9 Anxiety disorder, unspecified; F41.0 Panic disorder [episodic paroxysmal anxiety]; F32.9 Major depressive disorder, single episode, unspecified; Z79.899 Other long term (current) drug therapy; Y90.9 Presence of alcohol in blood, level not specified; Y04.0XXA Assault by unarmed brawl or fight, initial encounter
CPT/HCPCS: 70450; 70486; 72125; 99284

== ENCOUNTER 2020-09-04 13:34 | Emergency (ER) | payer OTHER ==
[2020-09-04 13:41] VITALS: BP 126/80; PULSE 111; TEMP 98.6
[2020-09-04] MEDS ORDERED: IBUPROFEN 600 MG TAB PO STA (13:48)
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
--- NOTE | 2020-09-04 14:15 | XR ---
EXAMINATION TYPE: XR ankle complete LT DATE OF EXAM: 09/04/2020 COMPARISON: NONE HISTORY: Pain TECHNIQUE: 3 views FINDINGS: There is soft tissue swelling over the lateral malleolus. Ankle mortise is anatomic. I see no fracture nor dislocation. IMPRESSION: Soft tissue swelling. No fracture.
[2020-09-04 14:44] VITALS: RESP 18
== END 2020-09-04 15:22 | disposition home or self-care (01) ==
LOC: EC 13:34
DX: S93.402A Sprain of unspecified ligament of left ankle, initial encounter (principal); J45.909 Unspecified asthma, uncomplicated; F41.9 Anxiety disorder, unspecified; F32.9 Major depressive disorder, single episode, unspecified; W51.XXXA Accidental striking against or bumped into by another person, initial encounter; Y93.02 Activity, running
CPT/HCPCS: 99283

== ENCOUNTER 2021-04-18 18:20 | Emergency (ER) | payer OTHER ==
[2021-04-18 20:34] LABS: Basophils % (A) 0 %; Eosinophils # (A) 0.2 k/uL (0-0.7); Eosinophils % (A) 2 %; HCT 35.8 % (34.0-46.0); HGB 12.1 gm/dL (11.4-16.0); Lymphocytes # (A) 1.2 k/uL (1.0-4.8); Lymphocytes % (A) 12 %; MCH 31.4 pg (25.0-35.0); MCHC 33.9 g/dL (31.0-37.0); MCV 92.6 fL (80.0-100.0); Mean Platelet Volume 7.1; Monocytes # (A) 0.6 k/uL (0-1.0); Monocytes % (A) 6 %; Neutrophils # (A) 8.3 k/uL (1.3-7.7); Neutrophils % (A) 79 %; Platelet Count 326 k/uL (150-450); RBC 3.87 m/uL (3.80-5.40); RDW 12.7 % (11.5-15.5); WBC 10.5 k/uL (3.8-10.6)
[2021-04-18 20:38] LABS: Appearance,Urine Clear (Clear); Bacteria,Urine Many /hpf; Bilirubin,Urine Negative (Negative); Blood,Urine Negative (Negative); Color,Urine Yellow; Glucose,Urine (UA) Negative (Negative); Hyaline Casts,Urine 1 /lpf (0-2); Ketones,Urine Negative (Negative); Leukocyte Esterase,Urine Small (Negative); Mucus,Urine Occasional /hpf; Nitrite,Urine Positive (Negative); Protein,Urine Trace (Negative); RBC,Urine 2 /hpf (0-5); Specific Gravity,Urine 1.027 (1.001-1.035); Squamous Epithelial Cell,Urine 2 /hpf (0-4); WBC,Urine 30 /hpf (0-5)
[2021-04-18 20:49] LABS: ALT 16 U/L (4-34); AST 19 U/L (14-36); African American GFR (CKD) >90 (>60 ml/min/1.73 sqM); Albumin 3.6 g/dL (3.5-5.0); Alkaline Phosphatase 116 U/L (38-126); Anion Gap 5 mmol/L; Blood Urea Nitrogen 10 mg/dL (7-17); Calcium 8.9 mg/dL (8.4-10.2); Carbon Dioxide 23 mmol/L (22-30); Chloride 104 mmol/L (98-107); Glucose 97 mg/dL (74-99); Non-African American GFR(CKD) >90 (>60 ml/min/1.73 sqM); Sodium 132 mmol/L (137-145); Total Bilirubin 0.2 mg/dL (0.2-1.3); Total Protein 7.1 g/dL (6.3-8.2)
[2021-04-18] MEDS ORDERED: ACETAMINOPHEN TAB 325 MG TAB PO STA (21:00)
--- NOTE | 2021-04-18 21:06 | ED ---
General Adult HPI - General Chief complaint: Abdominal Pain Stated complaint: Abd Pain, 16 Wks preg Time Seen by Provider: 04/18/21 20:50 Source: patient, RN notes reviewed Mode of arrival: ambulatory Limitations: no limitations - History of Present Illness Initial comments: This is a well-appearing 25-year-old female presents to the emergency room, alhaji rt and oriented 4, with complaints of left flank pain, fever and chills. Patient states that she has a history of frequent urinary tract infections and pyelonephritis. She states this feels similar. She is 16 weeks denies any dysuria or vaginal discharge or vaginal bleeding. She is a patient of Dr. Perez. She also has a history of SVT with WPW and asthma. She denies any chest pain or shortness of breath. She states that her kidney feels swollen and is worse when laying on the right side, states she can feel a pull on the left. She states she originally thought this was a pulled muscle. -: days(s) (3) Location: left (flank) Severity scale (1-10): 8 Quality: aching Consistency: intermittent Improves with: immobilization Worsens with: movement, other (palpation) Associated Symptoms: fever/chills Treatments Prior to Arrival: none - Related Data Home Medications Medication Instructions Recorded Confirmed Omeprazole [PriLOSEC] 20 mg PO DAILY 11/01/17 04/04/18 Albuterol Inhaler (Mhu) [Ventolin 2 puff INHALATION RT-Q4H PRN 04/04/18 04/04/18 Hfa Inhaler] Famotidine [Pepcid] 20 mg PO DAILY 04/04/18 04/04/18 QUEtiapine [SEROquel] 200 mg PO DAILY 04/04/18 04/04/18 clonazePAM [KlonoPIN] 0.5 mg PO TID PRN 04/04/18 04/04/18 Previous Rx's Medication Instructions Recorded Cephalexin [Keflex] 500 mg PO Q6HR 7 Days #28 cap 04/18/21 Allergies Allergy/AdvReac Type Severity Reaction Status Date / Time No Known Allergies Allergy Verified 04/18/21 19:59 Review of Systems ROS Statement: Those systems with pertinent positive or pertinent negative responses have been documented in the HPI. ROS Other: All systems not noted in ROS Statement are negative. Past Medical History Past Medical History: Asthma Additional Past Medical History / Comment(s): SVT, WPW Syndrome, frequent UTI tx with antibiotics, pyloric stonosis History of Any Multi-Drug Resistant Organisms: None Reported Past Surgical History: Tonsillectomy Additional Past Surgical History / Comment(s): apicoectomy front tooth,pyloric stenosis surgery as Past Anesthesia/Blood Transfusion Reactions: No Reported Reaction Past Psychological History: Anxiety, Bipolar, Depression, Panic Disorder Smoking Status: Never smoker Past Alcohol Use History: Occasional Past Drug Use History: Marijuana - Past Family History Brother(s) Family Medical History: Blood Disorder, Deep Vein Thrombosis (DVT), Pulmonary Embolus Additional Family Medical History / Comment(s): antithrombin 3 bleeding disorder Mother Additional Family Medical History / Comment(s): Mother had depression and anxiety. Father Family Medical History: Sleep Apnea/CPAP/BIPAP General Exam Limitations: no limitations General appearance: alert, in no apparent distress Head exam: Present: atraumatic, normocephalic, normal inspection Eye exam: Present: normal appearance, EOMI ENT exam: Present: normal exam, mucous membranes moist Neck exam: Present: normal inspection, full ROM Respiratory exam: Present: normal lung sounds bilaterally. Absent: respiratory distress, wheezes, rales, rhonchi, stridor Cardiovascular Exam: Present: tachycardia, normal heart sounds. Absent: JVD GI/Abdominal exam: Present: soft, normal bowel sounds, other (16 weeks ). Absent: distended, tenderness, guarding, rebound, rigid Extremities exam: Present: normal inspection, full ROM, normal capillary refill. Absent: tenderness, pedal edema, joint swelling, calf tenderness Back exam: Present: full ROM, CVA tenderness (L). Absent: muscle spasm, paraspinal tenderness Neurological exam: Present: alert, oriented X3 Psychiatric exam: Present: normal affect, normal mood Skin exam: Present: warm, dry, intact, normal color. Absent: rash Course Vital Signs 04/18/21 19:56 Temperature 99.3 F Pulse Rate 105 H Respiratory 18 Rate Blood Pressure 125/77 O2 Sat by Pulse 99 Oximetry Medical Decision Making - Medical Decision Making Patient presents to the emergency room with left flank pain. She has a low- grade fever of 99.3. She does have a history of pyelonephritis and frequent urinary tract infections. She states that she is 16 weeks and is having no abdominal pain or vaginal bleeding. Her urinalysis shows urinary tract infection. Ultrasound of the kidneys shows an enlarged right kidney with minimally dilated collecting system. An enlarged left kidney that slightly daily dilated with 2 hyperechoic foci measuring 0.6 x 2.5 x 0.4 and 0.6 x 0.5 point 0.3. These are probably small nonobstructing left renal calculi. There is no evidence of obstruction. Patient states that she does have a history of enlarged kidneys. She was given Rocephin in the emergency room for urinary tract infection. She will be prescribed Keflex. She'll be treated for urinary tract infection and directed to follow up with her ACOUSTICAL TILE DRILL PRESS OPERATOR this week. I discussed the importance of follow up this week with the primary care doctor or ACOUSTICAL TILE DRILL PRESS OPERATOR and she is agreeable to this plan of care. I did discuss this case with Dr. Cameron - Lab Data Result diagrams: 04/18/21 20:19 04/18/21 20:19 Lab Results 04/18/21 04/18/21 04/18/21 Range/Units 20:05 20:19 20:19 WBC 10.5 (3.8-10.6) k/uL RBC 3.87 (3.80-5.40) m/uL Hgb 12.1 (11.4-16.0) gm/dL Hct 35.8 (34.0-46.0) % MCV 92.6 (80.0-100.0) fL MCH 31.4 (25.0-35.0) pg MCHC 33.9 (31.0-37.0) g/dL RDW 12.7 (11.5-15.5) % Plt Count 326 (150-450) k/uL MPV 7.1 Neutrophils % 79 % Lymphocytes % 12 % Monocytes % 6 % Eosinophils % 2 % Basophils % 0 % Neutrophils # 8.3 H (1.3-7.7) k/uL Lymphocytes # 1.2 (1.0-4.8) k/uL Monocytes # 0.6 (0-1.0) k/uL Eosinophils # 0.2 (0-0.7) k/uL Basophils # 0.0 (0-0.2) k/uL Sodium 132 L (137-145) mmol/L Potassium 4.0 (3.5-5.1) mmol/L Chloride 104 (98-107) mmol/L Carbon Dioxide 23 (22-30) mmol/L Anion Gap 5 mmol/L BUN 10 (7-17) mg/dL Creatinine 0.62 (0.52-1.04) mg/dL Est GFR (CKD-EPI)AfAm >90 (>60 ml/min/1.73 sqM) Est GFR (CKD-EPI)NonAf >90 (>60 ml/min/1.73 sqM) Glucose 97 (74-99) mg/dL Calcium 8.9 (8.4-10.2) mg/dL Total Bilirubin 0.2 (0.2-1.3) mg/dL AST 19 (14-36) U/L ALT 16 (4-34) U/L Alkaline Phosphatase 116 (38-126) U/L Total Protein 7.1 (6.3-8.2) g/dL Albumin 3.6 (3.5-5.0) g/dL Urine Color Yellow Urine Appearance Clear (Clear) Urine pH 6.0 (5.0-8.0) Ur Specific [place] 1.027 (1.001-1.035) Urine Protein Trace H (Negative) Urine Glucose (UA) Negative (Negative) Urine Ketones Negative (Negative) Urine Blood Negative (Negative) Urine Nitrite Positive H (Negative) Urine Bilirubin Negative (Negative) Urine Urobilinogen 2.0 (<2.0) mg/dL Ur Leukocyte Esterase Small H (Negative) Urine RBC 2 (0-5) /hpf Urine WBC 30 H (0-5) /hpf Ur Squamous Epith Cells 2 (0-4) /hpf Urine Bacteria Many H (None) /hpf Hyaline Casts 1 (0-2) /lpf Urine Mucus Occasional H (None) /hpf Disposition Clinical Impression: UTI (urinary tract infection) during , Kidney stone on left side Disposition: HOME SELF-CARE Condition: Good Instructions (If sedation given, give patient instructions): (ED), Urinary Tract Infection in Women (ED) Additional Instructions: Tylenol as needed for pain. Take antibiotics as prescribed for the next 7 days. Follow-up with your primary care doctor or your ACOUSTICAL TILE DRILL PRESS OPERATOR this week. Return to the emergency room with any new or worsening symptoms including fever, vomiting or increased pain. Prescriptions: Cephalexin [Keflex] 500 mg PO Q6HR 7 Days #28 cap Is patient prescribed a controlled substance at d/c from ED?: No Referrals: Santiago Mahoney MD [Primary Care Provider] - 1-2 days Zakiya Hamlin DO [Doctor of Osteopathic Medicine] - 1-2 days Time of Disposition: 23:57
[2021-04-18] MEDS ORDERED: cefTRIAXone IN SWFI 1,000 MG/10 ML SYRINGE IVP STA (21:08)
--- NOTE | 2021-04-18 23:38 | US ---
EXAMINATION TYPE: US renals and bladder DATE OF EXAM: 04/18/2021 COMPARISON: US CLINICAL HISTORY: uti, back pain, hx of kidney stones. UTI, back pain. Patient is 16 weeks . EXAM MEASUREMENTS: Right Kidney: 13.1 x 4.9 x 5.2 cm Left Kidney: 12.5 x 5.1 x 5.5 cm Right Kidney: Appears enlarged. Possible minimally dilated upper collecting system. Left Kidney: Appears enlarged. Collecting system appears to be slightly dilated. Two hyperechoic foci seen #1 measures 0.6 x 0.5 x 0.4 cm. #2 measures 0.6 x 0.5 x 0.3 cm. Bladder: Appears anechoic. Bilateral Jets seen: Yes IMPRESSION: There are probably small nonobstructing left renal calculi. Bilateral ureteral jets and no evidence o f obstruction.
[2021-04-19 00:17] VITALS: BP 114/72; PULSE 87; RESP 16; TEMP 98
== END 2021-04-19 00:05 | disposition home or self-care (01) ==
LOC: EC 18:20
DX: O23.42 Unspecified infection of urinary tract in pregnancy, second trimester (principal); O26.832 Pregnancy related renal disease, second trimester; N20.0 Calculus of kidney; O99.52 Diseases of the respiratory system complicating childbirth; J45.909 Unspecified asthma, uncomplicated; Z3A.16 16 weeks gestation of pregnancy
CPT/HCPCS: 36415; 80053; 85025; 81001; 87086; 76770; 99284; 96374; J0696

== ENCOUNTER 2021-07-02 19:16 | Emergency (ER) | payer OTHER ==
--- NOTE | 2021-07-02 20:46 | ED ---
SOB HPI - General Chief Complaint: Shortness of Breath Stated Complaint: SOB, dizziness, 27 weeks Time Seen by Provider: 07/02/21 19:40 Source: patient Mode of arrival: wheelchair Limitations: no limitations - History of Present Illness Initial Comments: 25 year-old female patient presents to the emergency department for evaluation of shortness of breath, right sided chest pain, and tachycardia. States that she is 27 weeks with twins. She is A2. She states she has been sick with upper respiratory symptoms for the last 4 days. Reports cough, nasal congestion, and sore throat. States today she became more short of breath and her heart started "pounding". She denies leg pain or swelling but states she has many varicose veins to the left leg. Denies any complications with this so far. Denies fever or chills. States her daughter did test negative twice for COVID. - Related Data Home Medications Medication Instructions Recorded Confirmed Cephalexin [Keflex] 500 mg PO Q6H 07/02/21 07/02/21 Previous Rx's Medication Instructions Recorded Albuterol Sulfate [Proair Hfa] 1 - 2 puff INHALATION Q6HR PRN 07/02/21 #8.5 gm Allergies Allergy/AdvReac Type Severity Reaction Status Date / Time No Known Allergies Allergy Verified 07/02/21 22:30 Review of Systems ROS Statement: Those systems with pertinent positive or pertinent negative responses have been documented in the HPI. ROS Other: All systems not noted in ROS Statement are negative. Past Medical History Past Medical History: Asthma Additional Past Medical History / Comment(s): SVT, WPW Syndrome, frequent UTI tx with antibiotics, pyloric stonosis History of Any Multi-Drug Resistant Organisms: None Reported Past Surgical History: Tonsillectomy Additional Past Surgical History / Comment(s): apicoectomy front tooth,pyloric stenosis surgery as infant Past Anesthesia/Blood Transfusion Reactions: No Reported Reaction Past Psychological History: Anxiety, Bipolar, Depression, Panic Disorder Smoking Status: Never smoker Past Alcohol Use History: Occasional Past Drug Use History: Marijuana - Past Family History Brother(s) Family Medical History: Blood Disorder, Deep Vein Thrombosis (DVT), Pulmonary Embolus Additional Family Medical History / Comment(s): antithrombin 3 bleeding disorder Mother Additional Family Medical History / Comment(s): Mother had depression and anxiety. Father Family Medical History: Sleep Apnea/CPAP/BIPAP General Exam Limitations: no limitations General appearance: alert, in no apparent distress, other (This is a well- developed, well-nourished adult female in no acute distress.) ENT exam: Present: normal exam, normal oropharynx, mucous membranes moist Respiratory exam: Present: normal lung sounds bilaterally. Absent: respiratory distress, wheezes, rales, rhonchi, stridor Cardiovascular Exam: Present: regular rate, normal rhythm, tachycardia, normal heart sounds. Absent: systolic murmur, diastolic murmur, rubs, gallop, clicks GI/Abdominal exam: Present: soft, normal bowel sounds. Absent: distended, tenderness, guarding, rebound, rigid Neurological exam: Present: alert, oriented X3, CN II-XII intact Psychiatric exam: Present: normal affect, normal mood Skin exam: Present: warm, dry, intact, normal color. Absent: rash Course Vital Signs 07/02/21 07/02/21 07/02/21 19:32 20:18 21:45 Temperature 98.9 F Pulse Rate 122 H 108 H Respiratory 24 18 18 Rate Blood Pressure 129/76 O2 Sat by Pulse 97 Oximetry 07/02/21 07/02/21 22:34 23:35 Temperature 97.9 F Pulse Rate 99 94 Respiratory 18 22 Rate Blood Pressure 132/82 129/79 O2 Sat by Pulse 99 97 Oximetry Medical Decision Making - Medical Decision Making 25 year-old female patient who is 27 weeks with twins, presented to the emergency Department with upper respiratory symptoms, cough, shortness of breath. Physical examination reveals clear equal lung sounds. Patient was having right-sided chest pain, she is tachycardic without fever, so we did perform labs. Bilateral lower extremity ultrasounds were negative. D-dimer elevated. So CTA of the chest was obtained and was negative for PE. We did discuss possibility of acute bronchitis as a cause for her symptoms. She will be given a Pro Air inhaler. She is given supportive care and symptom management tips at home while being . She is instructed to follow-up with the primary care physician for recheck in 1-2 days. Instructed to follow-up with her BUSINESS EDUCATION TEACHER for recheck as soon as possible. Return parameters were discussed in detail. She verbalizes understanding and agrees with this plan. My attending is Dr. Alba. - Lab Data Result diagrams: 07/02/21 20:33 07/02/21 20:33 Lab Results 07/02/21 07/02/21 07/02/21 Range/Units 20:33 20:33 20:33 WBC 10.5 (3.8-10.6) k/uL RBC 3.50 L (3.80-5.40) m/uL Hgb 9.7 L (11.4-16.0) gm/dL Hct 30.0 L (34.0-46.0) % MCV 85.9 (80.0-100.0) fL MCH 27.6 (25.0-35.0) pg MCHC 32.2 (31.0-37.0) g/dL RDW 13.9 (11.5-15.5) % Plt Count 362 (150-450) k/uL MPV 7.6 Neutrophils % 81 % Lymphocytes % 11 % Monocytes % 5 % Eosinophils % 1 % Basophils % 0 % Neutrophils # 8.5 H (1.3-7.7) k/uL Lymphocytes # 1.2 (1.0-4.8) k/uL Monocytes # 0.6 (0-1.0) k/uL Eosinophils # 0.1 (0-0.7) k/uL Basophils # 0.0 (0-0.2) k/uL Hypochromasia Slight Poikilocytosis Slight PT 9.5 (9.0-12.0) sec INR 0.8 (<1.2) APTT 23.0 (22.0-30.0) sec D-Dimer 1.22 H (<0.60) mg/L FEU Sodium 134 L (137-145) mmol/L Potassium 3.5 (3.5-5.1) mmol/L Chloride 108 H (98-107) mmol/L Carbon Dioxide 20 L (22-30) mmol/L Anion Gap 6 mmol/L BUN 9 (7-17) mg/dL Creatinine 0.50 L (0.52-1.04) mg/dL Est GFR (CKD-EPI)AfAm >90 (>60 ml/min/1.73 sqM) Est GFR (CKD-EPI)NonAf >90 (>60 ml/min/1.73 sqM) Glucose 147 H (74-99) mg/dL Calcium 8.7 (8.4-10.2) mg/dL Total Bilirubin 0.3 (0.2-1.3) mg/dL AST 15 (14-36) U/L ALT 10 (4-34) U/L Alkaline Phosphatase 130 H (38-126) U/L Total Protein 6.7 (6.3-8.2) g/dL Albumin 3.2 L (3.5-5.0) g/dL Coronavirus (PCR) (Not Detectd) 07/02/21 Range/Units 20:33 WBC (3.8-10.6) k/uL RBC (3.80-5.40) m/uL Hgb (11.4-16.0) gm/dL Hct (34.0-46.0) % MCV (80.0-100.0) fL MCH (25.0-35.0) pg MCHC (31.0-37.0) g/dL RDW (11.5-15.5) % Plt Count (150-450) k/uL MPV Neutrophils % % Lymphocytes % % Monocytes % % Eosinophils % % Basophils % % Neutrophils # (1.3-7.7) k/uL Lymphocytes # (1.0-4.8) k/uL Monocytes # (0-1.0) k/uL Eosinophils # (0-0.7) k/uL Basophils # (0-0.2) k/uL Hypochromasia Poikilocytosis PT (9.0-12.0) sec INR (<1.2) APTT (22.0-30.0) sec D-Dimer (<0.60) mg/L FEU Sodium (137-145) mmol/L Potassium (3.5-5.1) mmol/L Chloride (98-107) mmol/L Carbon Dioxide (22-30) mmol/L Anion Gap mmol/L BUN (7-17) mg/dL Creatinine (0.52-1.04) mg/dL Est GFR (CKD-EPI)AfAm (>60 ml/min/1.73 sqM) Est GFR (CKD-EPI)NonAf (>60 ml/min/1.73 sqM) Glucose (74-99) mg/dL Calcium (8.4-10.2) mg/dL Total Bilirubin (0.2-1.3) mg/dL AST (14-36) U/L ALT (4-34) U/L Alkaline Phosphatase (38-126) U/L Total Protein (6.3-8.2) g/dL Albumin (3.5-5.0) g/dL Coronavirus (PCR) Not Detected (Not Detectd) - Radiology Data Radiology results: report reviewed, image reviewed Two-view x-ray of the chest is obtained. Report was reviewed in its entirety. Impression by Dr. Galvez shows normal chest. No change. CT chest angiography was obtained. Report reviewed in its entirety. Impression by Dr. Galvez shows negative exam. No evidence of pulmonary embolism. Disposition Clinical Impression: Acute bronchitis, Shortness of breath Disposition: HOME SELF-CARE Condition: Good Instructions (If sedation given, give patient instructions): Acute Bronchitis (ED) Additional Instructions: Some medications you may try are [id number] that are safe in : Nasal Saline (for nasal congestion) Afrin (for nasal congestion) (No longer than three days) Cough drops and lozenges (For sore throat) Tylenol (For pain and fever) Robitussin (for cough) Increase fluids. Get adequate rest. Follow up with your primary care physician or OBGYN for recheck as soon as possible. Prescriptions: Albuterol Sulfate [Proair Hfa] 1 - 2 puff INHALATION Q6HR PRN #8.5 gm PRN Reason: Shortness Of Breath Is patient prescribed a controlled substance at d/c from ED?: No Referrals: Santiago Mahoney MD [Primary Care Provider] - 1-2 days Time of Disposition: 23:33
--- NOTE | 2021-07-02 20:55 | XR ---
EXAMINATION TYPE: XR chest 1V DATE OF EXAM: 07/02/2021 COMPARISON: 04/04/2018 HISTORY: Short of breath TECHNIQUE: Single view FINDINGS: Heart and mediastinum are normal. Lungs are clear. Diaphragm is normal. Bony thorax appears normal. IMPRESSION: Normal chest. No change.
[2021-07-02 21:30] LABS: Basophils % (A) 0 %; Eosinophils # (A) 0.1 k/uL (0-0.7); Eosinophils % (A) 1 %; HGB 9.7 gm/dL (11.4-16.0); Hypochromasia Slight; Lymphocytes # (A) 1.2 k/uL (1.0-4.8); Lymphocytes % (A) 11 %; MCH 27.6 pg (25.0-35.0); MCHC 32.2 g/dL (31.0-37.0); MCV 85.9 fL (80.0-100.0); Mean Platelet Volume 7.6; Monocytes # (A) 0.6 k/uL (0-1.0); Monocytes % (A) 5 %; Neutrophils # (A) 8.5 k/uL (1.3-7.7); Neutrophils % (A) 81 %; Platelet Count 362 k/uL (150-450); Poikilocytosis Slight; RDW 13.9 % (11.5-15.5); WBC 10.5 k/uL (3.8-10.6)
[2021-07-02 21:31] LABS: ALT 10 U/L (4-34); AST 15 U/L (14-36); African American GFR (CKD) >90 (>60 ml/min/1.73 sqM); Albumin 3.2 g/dL (3.5-5.0); Alkaline Phosphatase 130 U/L (38-126); Anion Gap 6 mmol/L; Blood Urea Nitrogen 9 mg/dL (7-17); Calcium 8.7 mg/dL (8.4-10.2); Carbon Dioxide 20 mmol/L (22-30); Chloride 108 mmol/L (98-107); Glucose 147 mg/dL (74-99); Non-African American GFR(CKD) >90 (>60 ml/min/1.73 sqM); Potassium 3.5 mmol/L (3.5-5.1); Sodium 134 mmol/L (137-145); Total Bilirubin 0.3 mg/dL (0.2-1.3); Total Protein 6.7 g/dL (6.3-8.2)
[2021-07-02 21:39] LABS: INR 0.8 (<1.2); Prothrombin Time 9.5 sec (9.0-12.0)
--- NOTE | 2021-07-02 21:49 | US ---
EXAMINATION TYPE: US venous doppler duplex LE BI DATE OF EXAM: 07/02/2021 9:30 PM COMPARISON: NONE CLINICAL HISTORY: ; Short of breath/chest pain. SIDE PERFORMED: Bilateral TECHNIQUE: The lower extremity deep venous system is examined utilizing real time linear array sonog carl with graded compression, doppler sonography and color-flow sonography. VESSELS IMAGED: Common Femoral Vein Deep Femoral Vein Greater Saphenous Vein * Femoral Vein Popliteal Vein Small Saphenous Vein * Proximal Calf Veins (* superficial vessels) Right Leg: Negative for DVT Left Leg: Negative for DVT IMPRESSION: No evidence of deep vein thrombosis in both legs.
--- NOTE | 2021-07-02 23:09 | CT ---
EXAMINATION TYPE: CT chest angio for PE DATE OF EXAM: 07/02/2021 COMPARISON: None HISTORY: SOB, elevated d-dimer [address] DLP: mGycm Automated exposure control for dose reduction was used. CONTRAST: Performed with IV Contrast, patient injected with 80 mL of Isovue 370. There are 3-D post processed images. The lungs are clear of consolidation. There is no evidence of a pulmonary mass. There is no pleural e ffusion. There is no pericardial effusion. Heart size is normal. There is no mediastinal adenopathy. There are no hilar masses. There is normal contrast opacification of the pulmonary arteries. There are no filling defects. The thoracic spine is intact. There is no compression fracture. Sternum is intact IMPRESSION: Negative exam. No evidence of pulmonary embolism.
[2021-07-02 23:40] VITALS: BP 129/79; RESP 22; TEMP 97.9
[2021-07-02 23:41] VITALS: PULSE 94
== END 2021-07-02 23:41 | disposition home or self-care (01) ==
LOC: EC 19:16
DX: O99.512 Diseases of the respiratory system complicating pregnancy, second trimester (principal); J45.909 Unspecified asthma, uncomplicated; Z20.822 Contact with and (suspected) exposure to COVID-19; Z3A.27 27 weeks gestation of pregnancy
CPT/HCPCS: 36415; 93005; 85379; 80053; 85025; 85610; 85730; 87635; 71045; 93970; 71275; 99285; Q9967

== ENCOUNTER 2021-09-20 17:48 | Emergency (ER) | payer OTHER ==
[2021-09-20 18:00] VITALS: RESP 18; TEMP 97.8
[2021-09-20] MEDS ORDERED: MORPHINE SULFATE 4 MG/ML SYRINGE IVP STA (18:32)
[2021-09-20 18:53] LABS: Anisocytosis Moderate; Basophils % (A) 0 %; Eosinophils # (A) 0.1 k/uL (0-0.7); Eosinophils % (A) 2 %; HCT 31.2 % (34.0-46.0); HGB 9.6 gm/dL (11.4-16.0); Hypochromasia Marked; Lymphocytes # (A) 1.5 k/uL (1.0-4.8); Lymphocytes % (A) 25 %; MCHC 30.9 g/dL (31.0-37.0); MCV 80.9 fL (80.0-100.0); Mean Platelet Volume 8.2; Microcytosis Slight; Monocytes # (A) 0.3 k/uL (0-1.0); Monocytes % (A) 5 %; Neutrophils # (A) 3.8 k/uL (1.3-7.7); Neutrophils % (A) 66 %; Platelet Count 309 k/uL (150-450); RBC 3.86 m/uL (3.80-5.40); RDW 22.5 % (11.5-15.5); WBC 5.9 k/uL (3.8-10.6)
[2021-09-20 18:58] LABS: INR 0.9 (<1.2); Partial Thromboplastin Time 25.2 sec (22.0-30.0); Prothrombin Time 9.9 sec (9.0-12.0)
[2021-09-20 18:59] LABS: ALT 15 U/L (4-34); AST 20 U/L (14-36); African American GFR (CKD) >90 (>60 ml/min/1.73 sqM); Albumin 3.1 g/dL (3.5-5.0); Alkaline Phosphatase 169 U/L (38-126); Anion Gap 4 mmol/L; Blood Urea Nitrogen 15 mg/dL (7-17); Calcium 8.4 mg/dL (8.4-10.2); Carbon Dioxide 23 mmol/L (22-30); Chloride 109 mmol/L (98-107); Glucose 88 mg/dL (74-99); LDH 582 U/L (313-618); Magnesium 1.8 mg/dL (1.6-2.3); Non-African American GFR(CKD) >90 (>60 ml/min/1.73 sqM); Potassium 4.1 mmol/L (3.5-5.1); Sodium 136 mmol/L (137-145); Total Bilirubin 0.4 mg/dL (0.2-1.3); Total Protein 6.3 g/dL (6.3-8.2); Uric Acid 4.1 mg/dL (3.7-7.4)
--- NOTE | 2021-09-20 19:14 | ED ---
General Adult HPI - General Chief complaint: Chest Pain Stated complaint: Chest and Neck Pain Time Seen by Provider: 09/20/21 18:16 Source: patient, RN notes reviewed, old records reviewed Mode of arrival: wheelchair - History of Present Illness Initial comments: Patient is a 26-year-old female who presents emergency Department over concern for chest pain. Patient has one week . She is complaining of right- sided upper rib pain with radiation to her right neck that is worse with movement of her neck. She states she felt lightheaded earlier as well. Denies any shortness of breath, dyspnea. States she has a mild headache that is nearly resolved located across her forehead which is typical for her. States she did have high blood pressure during her but currently is not on any antihypertensive medications. Has been endorsing continued bilateral lower extremity edema that has been present since delivery, likely secondary to her fluid administration. Only medical history is SVT. Gave to 2 healthy twins via ceasarian section. Has no acute complaints at this time. Presents over concern for her symptoms. - Related Data Home Medications Medication Instructions Recorded Confirmed Acetaminophen [Tylenol Extra 500 mg PO Q6H PRN 09/20/21 09/20/21 Strength] Ferrous Sulfate [Iron] 325 mg PO BID 09/20/21 09/20/21 HYDROcodone/APAP 5-325MG [[place] 1 tab PO Q4HR PRN 09/20/21 09/20/21 5-325] Ibuprofen [Motrin] 600 mg PO Q6HR PRN 09/20/21 09/20/21 Allergies Allergy/AdvReac Type Severity Reaction Status Date / Time No Known Allergies Allergy Verified 09/20/21 17:50 Review of Systems ROS Statement: Those systems with pertinent positive or pertinent negative responses have been documented in the HPI. Review of Systems: CONST: Denies fever EYES: Denies blurry vision ENT: Denies nasal congestion C/V: Endorses upper chest wall pain. RESP: Denies shortness of breath GI: Denies abdominal pain : Denies dysuria SKIN: Denies rash. MSK: Denies joint pain. NEURO: Endorses improving headache ROS Other: All systems not noted in ROS Statement are negative. 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 Date of last positivie culture/infection: 11/22 MDRO Source:: left ankle Past Surgical History: Tonsillectomy Additional Past Surgical History / Comment(s): apicoectomy front tooth,pyloric stenosis surgery as infant Past Anesthesia/Blood Transfusion Reactions: No Reported Reaction Past Psychological History: Anxiety, Bipolar, Depression, Panic Disorder Smoking Status: Never smoker Past Alcohol Use History: Occasional Past Drug Use History: Marijuana - Past Family History Brother(s) Family Medical History: Blood Disorder, Deep Vein Thrombosis (DVT), Pulmonary Embolus Additional Family Medical History / Comment(s): antithrombin 3 bleeding disorder Mother Additional Family Medical History / Comment(s): Mother had depression and anxiety. Father Family Medical History: Sleep Apnea/CPAP/BIPAP General Exam - General Exam Comments Initial Comments: General: Appears in no acute distress. HEAD: Normal with no signs of head trauma. EYES: PERRLA, EOMI, conjunctiva normal, no discharge. Pupils are 3 mm and equal bilaterally. ENT: Hearing grossly intact, normal oropharynx. RESPIRATORY: Clear breath sounds bilaterally. No wheezes, rales, or rhonchi. C/V: Regular rate and rhythm. S1 and S2 auscultated, 2+ pitting edema symmetrical bilaterally at the bilateral knees, present since giving , peripheral pulses 2+ and intact throughout. Reproducible anterior chest wall pain to the superior first rib on the right and clavicle just to the right of midline with some radiation over the right shoulder and into the paraspinal muscles on the right side of her neck. ABD: Abd is soft, nontender, nondistended EXT: Normal range of motion, no obvious deformity SKIN: No rashes or lesions observed on exposed skin. NEURO: Alert and oriented 4. NIH is 0. GCS of 15. No focal sensory strength deficits. Course Vital Signs 09/20/21 09/20/21 09/20/21 17:51 18:13 19:44 Temperature 97.8 F Pulse Rate 65 51 L Pulse Rate [ 58 L Pit [place] ] Respiratory 18 18 Rate Blood Pressure 191/100 158/91 O2 Sat by Pulse 100 99 Oximetry 09/20/21 21:24 Temperature Pulse Rate 55 L Pulse Rate [ Pit Hand ] Respiratory 18 Rate Blood Pressure 160/104 O2 Sat by Pulse 97 Oximetry Medical Decision Making - Medical Decision Making Based on the patient's presentation and physical exam, I'm concerned for possible cardiac disease versus preeclampsia. She also may be experiencing pain secondary to musculoskeletal thoracic wall pain and neck pain. Therefore we will treat the pain and repeat blood pressure, as patient's blood pressure was initially elevated but has since been in the 150s systolic since arrival. We will also work her up for preeclampsia at this time. We'll reassess to see her pain medications causes resolution of her symptoms as well a s hypertension. She states she typically does run with systolics in the 130s. Cardiac workup will also be obtained at this time. Patient was in agreement this plan. EKG shows no signs of acute ischemia. Reveals chronic findings.Laboratory studies are not suggestive of preeclampsia, patient is a chronic normocytic anemia with hemoglobin of 9.6, no signs of severe features with normal LFTs, and no proteinuria. Cardiac workup reveals a relatively normal BNP and negative troponin. Her symptoms have been ongoing for over a day. On reevaluation, patient still having slight neck discomfort but otherwise headache as well as anterior chest wall pain have resolved. I discussed the f indings with the patient. I would like to discuss with her RESIDENTIAL COUNSELOR. I attempted to contact her RESIDENTIAL COUNSELOR, Dr. Perez who did not answer. I did contact the on-call RESIDENTIAL COUNSELOR at our hospital, Dr. Simms, who was in agreement with that the patient does not appear to be suffering from preeclampsia based on labs or vital signs. As the patient was previously on antihypertensive just prior to delivery, we will continue the metoprolol. She'll be given a dose prior to discharge. She'll be instructed to follow-up with her RESIDENTIAL COUNSELOR, Dr. Perez tomorrow for blood pressure check. She was in agreement this plan. Vital signs remained stable and within normal limits, systolics ranging from 150-160 her stay. She is overall feeling improved. I instructed the patient to follow up with their OBGYN in the next 1 days. I explained that the patient should return to the emergency department if they experience any worsening symptoms. Strict return precautions were discussed with the patient. The patient expressed understanding of these instructions. I answered all questions that the patient had. The patient was discharged home in good condition with their prescriptions and follow up information. - Lab Data Result diagrams: 09/20/21 Unknown 09/20/21 Unknown Lab Results 09/20/21 09/20/21 09/20/21 Range/Units 18:46 19:38 Unknown WBC 5.9 (3.8-10.6) k/uL RBC 3.86 (3.80-5.40) m/uL Hgb 9.6 L (11.4-16.0) gm/dL Hct 31.2 L (34.0-46.0) % MCV 80.9 (80.0-100.0) fL MCH 25.0 (25.0-35.0) pg MCHC 30.9 L (31.0-37.0) g/dL RDW 22.5 H (11.5-15.5) % Plt Count 309 (150-450) k/uL MPV 8.2 Neutrophils % 66 % Lymphocytes % 25 % Monocytes % 5 % Eosinophils % 2 % Basophils % 0 % Neutrophils # 3.8 (1.3-7.7) k/uL Lymphocytes # 1.5 (1.0-4.8) k/uL Monocytes # 0.3 (0-1.0) k/uL Eosinophils # 0.1 (0-0.7) k/uL Basophils # 0.0 (0-0.2) k/uL Hypochromasia Marked Anisocytosis Moderate Microcytosis Slight PT (9.0-12.0) sec INR (<1.2) APTT (22.0-30.0) sec Sodium (137-145) mmol/L Potassium (3.5-5.1) mmol/L Chloride (98-107) mmol/L Carbon Dioxide (22-30) mmol/L Anion Gap mmol/L BUN (7-17) mg/dL Creatinine (0.52-1.04) mg/dL Est GFR (CKD-EPI)AfAm (>60 ml/min/1.73 sqM) Est GFR (CKD-EPI)NonAf (>60 ml/min/1.73 sqM) Glucose (74-99) mg/dL Uric Acid (3.7-7.4) mg/dL Calcium (8.4-10.2) mg/dL Magnesium (1.6-2.3) mg/dL Total Bilirubin (0.2-1.3) mg/dL AST (14-36) U/L ALT (4-34) U/L Alkaline Phosphatase (38-126) U/L Lactate Dehydrogenase (313-618) U/L Troponin I <0.012 (0.000-0.034) ng/mL NT-Pro-B Natriuret Pep pg/mL Total Protein (6.3-8.2) g/dL Albumin (3.5-5.0) g/dL Urine Color Light Yellow Urine Appearance Clear (Clear) Urine pH 6.0 (5.0-8.0) Ur Specific [place] 1.013 (1.001-1.035) Urine Protein Negative (Negative) Urine Glucose (UA) Negative (Negative) Urine Ketones Negative (Negative) Urine Blood Moderate H (Negative) Urine Nitrite Negative (Negative) Urine Bilirubin Negative (Negative) Urine Urobilinogen <2.0 (<2.0) mg/dL Ur Leukocyte Esterase Negative (Negative) Urine RBC 3 (0-5) /hpf Urine WBC 1 (0-5) /hpf Ur Squamous Epith Cells 2 (0-4) /hpf Urine Mucus Rare H (None) /hpf 09/20/21 09/20/21 09/20/21 Range/Units Unknown Unknown Unknown WBC (3.8-10.6) k/uL RBC (3.80-5.40) m/uL Hgb (11.4-16.0) gm/dL Hct (34.0-46.0) % MCV (80.0-100.0) fL MCH (25.0-35.0) pg MCHC (31.0-37.0) g/dL RDW (11.5-15.5) % Plt Count (150-450) k/uL MPV Neutrophils % % Lymphocytes % % Monocytes % % Eosinophils % % Basophils % % Neutrophils # (1.3-7.7) k/uL Lymphocytes # (1.0-4.8) k/uL Monocytes # (0-1.0) k/uL Eosinophils # (0-0.7) k/uL Basophils # (0-0.2) k/uL Hypochromasia Anisocytosis Microcytosis PT 9.9 (9.0-12.0) sec INR 0.9 (<1.2) APTT 25.2 (22.0-30.0) sec Sodium 136 L (137-145) mmol/L Potassium 4.1 (3.5-5.1) mmol/L Chloride 109 H (98-107) mmol/L Carbon Dioxide 23 (22-30) mmol/L Anion Gap 4 mmol/L BUN 15 (7-17) mg/dL Creatinine 0.62 (0.52-1.04) mg/dL Est GFR (CKD-EPI)AfAm >90 (>60 ml/min/1.73 sqM) Est GFR (CKD-EPI)NonAf >90 (>60 ml/min/1.73 sqM) Glucose 88 (74-99) mg/dL Uric Acid 4.1 (3.7-7.4) mg/dL Calcium 8.4 (8.4-10.2) mg/dL Magnesium 1.8 (1.6-2.3) mg/dL Total Bilirubin 0.4 (0.2-1.3) mg/dL AST 20 (14-36) U/L ALT 15 (4-34) U/L Alkaline Phosphatase 169 H (38-126) U/L Lactate Dehydrogenase 582 (313-618) U/L Troponin I (0.000-0.034) ng/mL NT-Pro-B Natriuret Pep 461 pg/mL Total Protein 6.3 (6.3-8.2) g/dL Albumin 3.1 L (3.5-5.0) g/dL Urine Color Urine Appearance (Clear) Urine pH (5.0-8.0) Ur Specific [place] (1.001-1.035) Urine Protein (Negative) Urine Glucose (UA) (Negative) Urine Ketones (Negative) Urine Blood (Negative) Urine Nitrite (Negative) Urine Bilirubin (Negative) Urine Urobilinogen (<2.0) mg/dL Ur Leukocyte Esterase (Negative) Urine RBC (0-5) /hpf Urine WBC (0-5) /hpf Ur Squamous Epith Cells (0-4) /hpf Urine Mucus (None) /hpf - EKG Data -: EKG Interpreted by Me EKG Comments: 12-lead Electrocardiogram Interpretation Note EKG was reviewed and interpreted by myself. 12-lead ECG performed at 1810 is int erpreted by me as revealing normal sinus rhythm at a rate of 50 beats per minute. Pitman is normal. RI interval is 182 ms, QRS duration is 92 ms, QTc is 375 ms.. There is an isolated T-wave inversion in lead V2 which is seen on prior EKGs as well as RSR prime pattern which is seen on prior EKGs as well. No acute ST segment or T-wave abnormalities to suggest acute ischemia.. R wave progression across the precordium was satisfactory. By my interpretation this EKG is non-diagnostic for acute ischemia. Disposition Clinical Impression: Hypertension, Chest wall pain, Neck strain, edema Disposition: HOME SELF-CARE Condition: Good Instructions (If sedation given, give patient instructions): Hypertension (ED) Additional Instructions: Follow up with Dr. Perez in the morning for blood pressure checks. Is patient prescribed a controlled substance at d/c from ED?: No Referrals: Santiago Mahoney MD [Primary Care Provider] - 1-2 days Time of Disposition: 20:30
--- NOTE | 2021-09-20 19:30 | XR ---
EXAMINATION TYPE: XR chest 2V DATE OF EXAM: 09/20/2021 7:21 PM COMPARISON: Chest radiographs from 07/02/2021 TECHNIQUE: XR chest 2V Frontal view of the chest. CLINICAL INDICATION:Female, 26 years old with history of Chest Pain; FINDINGS: Lungs/Pleura: There is no evidence of pleural effusion, focal consolidation, or pneumothorax. Pulmonary vascularity: Unremarkable. Heart/mediastinum: Cardiomediastinal silhouette is unremarkable. Musculoskeletal: No acute osseous pathology. IMPRESSION: No acute cardiopulmonary disease/process.
[2021-09-20] MEDS ORDERED: KETOROLAC 15 MG/ML 1 ML VIAL IVP STA (19:37)
[2021-09-20 20:25] LABS: Appearance,Urine Clear (Clear); Bilirubin,Urine Negative (Negative); Blood,Urine Moderate (Negative); Color,Urine Light Yellow; Glucose,Urine (UA) Negative (Negative); Ketones,Urine Negative (Negative); Leukocyte Esterase,Urine Negative (Negative); Mucus,Urine Rare /hpf; Nitrite,Urine Negative (Negative); Protein,Urine Negative (Negative); RBC,Urine 3 /hpf (0-5); Specific Gravity,Urine 1.013 (1.001-1.035); Squamous Epithelial Cell,Urine 2 /hpf (0-4); Urobilinogen,Urine <2.0 mg/dL (<2.0); WBC,Urine 1 /hpf (0-5)
[2021-09-20] MEDS ORDERED: METOPROLOL TARTRATE 12.5 MG TAB PO STA (20:34)
[2021-09-20 21:27] VITALS: BP 160/104; PULSE 55
== END 2021-09-20 21:26 | disposition home or self-care (01) ==
LOC: EC 17:48
DX: S16.1XXA Strain of muscle, fascia and tendon at neck level, initial encounter (principal); J45.909 Unspecified asthma, uncomplicated; R07.89 Other chest pain; I10 Essential (primary) hypertension; X58.XXXA Exposure to other specified factors, initial encounter
CPT/HCPCS: 36415; 83880; 80053; 83615; 83735; 84550; 84484; 85025; 85610; 85730; 81001; 71046; 99285; 96374; 96375; J2270; J1885; 93005

== ENCOUNTER 2023-04-02 20:08 | Emergency (ER) | payer OTHER ==
--- NOTE | 2023-04-02 21:14 | ED ---
Abdominal Pain HPI - General Source: patient, RN notes reviewed Mode of arrival: ambulatory Limitations: no limitations - History of Present Illness MD Complaint: abdominal pain <Candi Mcarthur - Last Filed: 04/02/23 21:11> - History of Present Illness -: days(s) Location: suprapubic Radiation: none Migration to: no migration Severity: moderate Quality: sharp Consistency: intermittent Improves With: nothing Worsens With: movement Associated Symptoms: denies other symptoms - Related Data LMP (females 10-50): 3 months <Eric Cameron - Last Filed: 04/03/23 02:25> - General Chief Complaint: Abdominal Pain Stated Complaint: abd pain Time Seen by Provider: 04/02/23 21:11 - History of Present Illness Initial Comments: Patient is a 27-year-old female who presents to the emergency department for pelvic pain. Patient has history of uterine polyp which she had scheduled for removal by Dr. Perez on March 05 but patient could not make the appointment. Her pain worsen 2 days ago mostly right sided. She has had low-grade fevers denies any urinary symptoms or vaginal discharge. Denies cold like symptoms admits to nausea no vomiting. (Candi Mcarthur) This patient is a 19-year-old woman presenting to have evaluation for low abdominal pain. She states it's at the level of her section scar. She states she was having pains with this months ago and they seem to go away for bit but have started coming back over the past couple of days. She states that the pain is sharp, sometimes made worse with walking. It is intermittent. She has not noted nausea or vomiting. Last bowel movement was in the morning and was normal. No vaginal discharge. No change in urination. (Eric Cameron) - Related Data Home Medications Medication Instructions Recorded Confirmed Acetaminophen [Tylenol Extra 500 mg PO Q6H PRN 09/20/21 09/20/21 Strength] Ferrous Sulfate [Iron] 325 mg PO BID 09/20/21 09/20/21 HYDROcodone/APAP 5-325MG [[place] 1 tab PO Q4HR PRN 09/20/21 09/20/21 5-325] Ibuprofen [Motrin] 600 mg PO Q6HR PRN 09/20/21 09/20/21 Allergies Allergy/AdvReac Type Severity Reaction Status Date / Time No Known Allergies Allergy Verified 04/02/23 20:46 Review of Systems ROS Other: All systems not noted in ROS Statement are negative. <Candi Mcarthur - Last Filed: 04/02/23 21:11> ROS Other: All systems not noted in ROS Statement are negative. <Eric Cameron - Last Filed: 04/03/23 02:25> ROS Statement: Those systems with pertinent positive or pertinent negative responses have been documented in the HPI. 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 Date of last positivie culture/infection: 11/22 MDRO Source:: left ankle Past Surgical History: Tonsillectomy Additional Past Surgical History / Comment(s): apicoectomy front tooth,pyloric stenosis surgery as Past Anesthesia/Blood Transfusion Reactions: No Reported Reaction Past Psychological History: Anxiety, Bipolar, Depression, Panic Disorder Smoking Status: Never smoker Past Alcohol Use History: Occasional Past Drug Use History: Marijuana - Past Family History Brother(s) Family Medical History: Blood Disorder, Deep Vein Thrombosis (DVT), Pulmonary Embolus Additional Family Medical History / Comment(s): antithrombin 3 bleeding disorder Mother Additional Family Medical History / Comment(s): Mother had depression and anxiety. Father Family Medical History: Sleep Apnea/CPAP/BIPAP <Candi Mcarthur - Last Filed: 04/02/23 21:11> General Exam Limitations: no limitations <Candi Mcarthur - Last Filed: 04/02/23 21:11> - General Exam Comments Initial Comments: Visual Physical Exam Vital signs reviewed General: Well-appearing, nontoxic, no acute distress. Head: Normocephalic, atraumatic Eyes: PERRLA, EOMI ENT: Airway patent Chest: Nonlabored breathing Skin: No visual rash, normal skin tone Neuro: Alert and oriented 3 Musculoskeletal: No gross abnormalities (Candi Mcarthur) Course Vital Signs 04/02/23 04/03/23 20:42 02:10 Temperature 99.7 F H 98.6 F Pulse Rate 111 H 84 Respiratory 20 16 Rate Blood Pressure 142/80 133/84 O2 Sat by Pulse 100 100 Oximetry Medical Decision Making <Candi Mcarthur - Last Filed: 04/02/23 21:11> - Lab Data Result diagrams: 04/02/23 21:56 04/02/23 21:56 <AurajocyEric - Last Filed: 04/03/23 02:25> - Medical Decision Making I performed the QuickNote portion of this chart - Candi Mcarthur PA-C (Candi Mcarthur) - Lab Data Lab Results 04/02/23 04/02/23 04/02/23 Range/Units 00:45 00:45 21:56 WBC 8.6 (3.8-10.6) k/uL RBC 4.28 (3.80-5.40) m/uL Hgb 13.4 (11.4-16.0) gm/dL Hct 40.4 (34.0-46.0) % MCV 94.4 (80.0-100.0) fL MCH 31.2 (25.0-35.0) pg MCHC 33.1 (31.0-37.0) g/dL RDW 13.0 (11.5-15.5) % Plt Count 390 (150-450) k/uL MPV 7.1 Neutrophils % 62 % Lymphocytes % 29 % Monocytes % 5 % Eosinophils % 2 % Basophils % 0 % Neutrophils # 5.3 (1.3-7.7) k/uL Lymphocytes # 2.5 (1.0-4.8) k/uL Monocytes # 0.5 (0-1.0) k/uL Eosinophils # 0.2 (0-0.7) k/uL Basophils # 0.0 (0-0.2) k/uL Sodium (137-145) mmol/L Potassium (3.5-5.1) mmol/L Chloride (98-107) mmol/L Carbon Dioxide (22-30) mmol/L Anion Gap mmol/L BUN (7-17) mg/dL Creatinine (0.52-1.04) mg/dL Est GFR (CKD-EPI)AfAm (>60 ml/min/1.73 sqM) Est GFR (CKD-EPI)NonAf (>60 ml/min/1.73 sqM) Glucose (74-99) mg/dL Plasma Lactic Acid Huang (0.7-2.0) mmol/L Calcium (8.4-10.2) mg/dL Total Bilirubin (0.2-1.3) mg/dL AST (14-36) U/L ALT (4-34) U/L Alkaline Phosphatase (38-126) U/L Total Protein (6.3-8.2) g/dL Albumin (3.5-5.0) g/dL Urine Color Yellow Urine Appearance Clear (Clear) Urine pH 7.0 (5.0-8.0) Ur Specific [place] 1.025 (1.001-1.035) Urine Protein Trace H (Negative) Urine Glucose (UA) Negative (Negative) Urine Ketones Negative (Negative) Urine Blood Negative (Negative) Urine Nitrite Negative (Negative) Urine Bilirubin Negative (Negative) Urine Urobilinogen <2.0 (<2.0) mg/dL Ur Leukocyte Esterase Negative (Negative) Urine RBC 1 (0-5) /hpf Urine WBC 1 (0-5) /hpf Ur Squamous Epith Cells 1 (0-4) /hpf Urine Bacteria Rare H (None) /hpf Urine Mucus Occasional H (None) /hpf Urine HCG, Qual Not Detected (Not Detectd) Influenza Type A (PCR) (Not Detectd) Influenza Type B (PCR) (Not Detectd) RSV (PCR) (Not Detectd) SARS-CoV-2 (PCR) (Not Detectd) 04/02/23 04/02/23 04/02/23 Range/Units 21:56 21:56 21:56 WBC (3.8-10.6) k/uL RBC (3.80-5.40) m/uL Hgb (11.4-16.0) gm/dL Hct (34.0-46.0) % MCV (80.0-100.0) fL MCH (25.0-35.0) pg MCHC (31.0-37.0) g/dL RDW (11.5-15.5) % Plt Count (150-450) k/uL MPV Neutrophils % % Lymphocytes % % Monocytes % % Eosinophils % % Basophils % % Neutrophils # (1.3-7.7) k/uL Lymphocytes # (1.0-4.8) k/uL Monocytes # (0-1.0) k/uL Eosinophils # (0-0.7) k/uL Basophils # (0-0.2) k/uL Sodium 138 (137-145) mmol/L Potassium 3.6 (3.5-5.1) mmol/L Chloride 105 (98-107) mmol/L Carbon Dioxide 24 (22-30) mmol/L Anion Gap 9 mmol/L BUN 13 (7-17) mg/dL Creatinine 0.64 (0.52-1.04) mg/dL Est GFR (CKD-EPI)AfAm >90 (>60 ml/min/1.73 sqM) Est GFR (CKD-EPI)NonAf >90 (>60 ml/min/1.73 sqM) Glucose 94 (74-99) mg/dL Plasma Lactic Acid Huang 0.6 L (0.7-2.0) mmol/L Calcium 8.9 (8.4-10.2) mg/dL Total Bilirubin 0.4 (0.2-1.3) mg/dL AST 21 (14-36) U/L ALT 17 (4-34) U/L Alkaline Phosphatase 86 (38-126) U/L Total Protein 7.3 (6.3-8.2) g/dL Albumin 4.3 (3.5-5.0) g/dL Urine Color Urine Appearance (Clear) Urine pH (5.0-8.0) Ur Specific [place] (1.001-1.035) Urine Protein (Negative) Urine Glucose (UA) (Negative) Urine Ketones (Negative) Urine Blood (Negative) Urine Nitrite (Negative) Urine Bilirubin (Negative) Urine Urobilinogen (<2.0) mg/dL Ur Leukocyte Esterase (Negative) Urine RBC (0-5) /hpf Urine WBC (0-5) /hpf Ur Squamous Epith Cells (0-4) /hpf Urine Bacteria (None) /hpf Urine Mucus (None) /hpf Urine HCG, Qual (Not Detectd) Influenza Type A (PCR) Not Detected (Not Detectd) Influenza Type B (PCR) Not Detected (Not Detectd) RSV (PCR) Not Detected (Not Detectd) SARS-CoV-2 (PCR) Not Detected (Not Detectd) Disposition <Candi Mcarthur - Last Filed: 04/02/23 21:11> Is patient prescribed a controlled substance at d/c from ED?: No <Eric Cameron - Last Filed: 04/03/23 02:25> Clinical Impression: Pelvic pain Disposition: HOME SELF-CARE Condition: Good Instructions (If sedation given, give patient instructions): Pelvic Pain in Women (ED) Referrals: Santiago Mahoney MD [Primary Care Provider] - 1-2 days Jovan Perez DO [REFERRING] - 1-2 days
--- NOTE | 2023-04-02 22:08 | US ---
EXAMINATION TYPE: US pelvic complete DATE OF EXAM: 04/02/2023 COMPARISON: NONE CLINICAL INDICATION: Female, 27 years old with history of pain; Pain x 1 day. Pt states she was diagn osed with an endometrial polyp in January 2023. LMP over 2 months ago. . 1 TECHNIQUE: Transabdominal sonographic images of the pelvis were acquired. Date of LMP: 01/03/23 EXAM MEASUREMENTS: Uterus: 6.8 x 5.5 x 4.2 cm Endometrial Stripe: cm Right Ovary: 1.9 x 1.9 x 1.7 cm Left Ovary: 2.5 x 2.4 x 2.0 cm 1. Uterus: Anteverted wnl 2. Endometrium: 2 echogenic focus seen in the endo. Largest = 3.7 x 2.9 x 1.7mm 3. Right Ovary: wnl 4. Left Ovary: cystic area seen measuring 1.6 x 1.2 x 1.0cm Spectral, color and waveform doppler imaging shows good arterial and venous flow within the ovaries ; there is no evidence for ovarian torsion. 5. Bilateral Adnexa: wnl 6. Posterior cul-de-sac: wnl IMPRESSION: 1. No evidence for acute process. 2. 2 echogenic foci within the endometrium are nonspecific could relate to blood products and/or margot cification. 3. Appropriate arterial and venous spectral waveforms to the ovaries.
[2023-04-02 22:14] LABS: Basophils % (A) 0 %; Eosinophils # (A) 0.2 k/uL (0-0.7); Eosinophils % (A) 2 %; HCT 40.4 % (34.0-46.0); HGB 13.4 gm/dL (11.4-16.0); Lymphocytes # (A) 2.5 k/uL (1.0-4.8); Lymphocytes % (A) 29 %; MCH 31.2 pg (25.0-35.0); MCHC 33.1 g/dL (31.0-37.0); MCV 94.4 fL (80.0-100.0); Mean Platelet Volume 7.1; Monocytes # (A) 0.5 k/uL (0-1.0); Monocytes % (A) 5 %; Neutrophils # (A) 5.3 k/uL (1.3-7.7); Neutrophils % (A) 62 %; Platelet Count 390 k/uL (150-450); RBC 4.28 m/uL (3.80-5.40); WBC 8.6 k/uL (3.8-10.6)
[2023-04-02 22:30] LABS: ALT 17 U/L (4-34); AST 21 U/L (14-36); African American GFR (CKD) >90 (>60 ml/min/1.73 sqM); Albumin 4.3 g/dL (3.5-5.0); Alkaline Phosphatase 86 U/L (38-126); Anion Gap 9 mmol/L; Blood Urea Nitrogen 13 mg/dL (7-17); Calcium 8.9 mg/dL (8.4-10.2); Carbon Dioxide 24 mmol/L (22-30); Chloride 105 mmol/L (98-107); Glucose 94 mg/dL (74-99); Non-African American GFR(CKD) >90 (>60 ml/min/1.73 sqM); Potassium 3.6 mmol/L (3.5-5.1); Sodium 138 mmol/L (137-145); Total Bilirubin 0.4 mg/dL (0.2-1.3); Total Protein 7.3 g/dL (6.3-8.2)
[2023-04-03 01:53] LABS: Bacteria,Urine Rare /hpf; Color,Urine Yellow; Mucus,Urine Occasional /hpf; RBC,Urine 1 /hpf (0-5); Squamous Epithelial Cell,Urine 1 /hpf (0-4); WBC,Urine 1 /hpf (0-5)
[2023-04-03 01:54] LABS: Appearance,Urine Clear (Clear); Bilirubin,Urine Negative (Negative); Blood,Urine Negative (Negative); Glucose,Urine (UA) Negative (Negative); Ketones,Urine Negative (Negative); Leukocyte Esterase,Urine Negative (Negative); Nitrite,Urine Negative (Negative); Protein,Urine Trace (Negative); Specific Gravity,Urine 1.025 (1.001-1.035); Urobilinogen,Urine <2.0 mg/dL (<2.0)
[2023-04-03 02:34] VITALS: BP 133/84; PULSE 84; RESP 16; TEMP 98.6
== END 2023-04-03 02:18 | disposition home or self-care (01) ==
LOC: EC 20:08
DX: R10.2 Pelvic and perineal pain (principal); J45.909 Unspecified asthma, uncomplicated; F12.90 Cannabis use, unspecified, uncomplicated; Z86.59 Personal history of other mental and behavioral disorders; Z20.822 Contact with and (suspected) exposure to COVID-19
CPT/HCPCS: 36415; 76856; 80053; 81003; 81025; 83605; 85025; 87636; 93975; 99284

== ENCOUNTER 2023-06-22 18:03 | Emergency (ER) | payer OTHER ==
--- NOTE | 2023-06-22 18:06 | ED ---
Recheck HPI - General Source: patient, RN notes reviewed Mode of arrival: ambulatory Limitations: no limitations <Kaylin Buchanan - Last Filed: 06/22/23 18:24> <Jose Alejandro Holcomb - Last Filed: 06/22/23 23:10> - History of Present Illness -: days(s) Returns Today for: persistent/worsening pain related to initial visit Symptoms Since Prior Visit: worsening pain Associated Symptoms: none <Yvan Alba - Last Filed: 07/02/23 09:19> - General Chief Complaint: Recheck/Abnormal Lab/Rx Stated Complaint: Post op pain Time Seen by Provider: 06/22/23 18:05 - History of Present Illness Initial Comments: This is a 27 year old female who presents to the emergency department for pelvic pain and vaginal bleeding. Patient had a tubal ligation on 06/07 at [facility] with Dr. Perez. She was doing fine up until 2 days ago, when she started to develop increasing pain and bleeding. (Kaylin Buchanan) This is a 19-year-old female DF for evaluation of abdominal pain and vaginal pain and bleeding after having a tubal ligation one week ago. Patient has severe abdominal pain cramping since (Yvan Alba) - Related Data Home Medications Medication Instructions Recorded Confirmed Cariprazine HCl [Vraylar] 3 mg PO HS 06/22/23 06/22/23 Dextroamphetamine/Amphetamine 15 mg PO DAILY@1800 06/22/23 06/22/23 [Adderall] Dextroamphetamine/Amphetamine 20 mg PO BID@0600,1400 06/22/23 06/22/23 [Adderall] Montelukast [Singulair] 10 mg PO DAILY PRN 06/22/23 06/22/23 Rimegepant Sulfate [Nurtec Odt] 75 mg PO DAILY PRN 06/22/23 06/22/23 Allergies Allergy/AdvReac Type Severity Reaction Status Date / Time codeine Allergy Rash/Hives/ Verified 06/22/23 23:01 Nausea Review of Systems ROS Other: All systems not noted in ROS Statement are negative. <Kaylin Buchanan - Last Filed: 06/22/23 18:24> ROS Other: All systems not noted in ROS Statement are negative. <ZhangJose Alejandro Hyacinth - Last Filed: 06/22/23 23:10> ROS Other: All systems not noted in ROS Statement are negative. <Yvan Alba - Last Filed: 07/02/23 09:19> ROS Statement: Those systems with pertinent positive or pertinent negative responses have been documented in the HPI. 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 Date of last positivie culture/infection: 11/22 MDRO Source:: left ankle Past Surgical History: Tonsillectomy Additional Past Surgical History / Comment(s): apicoectomy front tooth,pyloric stenosis surgery as Past Anesthesia/Blood Transfusion Reactions: No Reported Reaction Past Psychological History: Anxiety, Bipolar, Depression, Panic Disorder Smoking Status: Never smoker Past Alcohol Use History: Occasional Past Drug Use History: Marijuana - Past Family History Brother(s) Family Medical History: Blood Disorder, Deep Vein Thrombosis (DVT), Pulmonary Embolus Additional Family Medical History / Comment(s): antithrombin 3 bleeding disorder Mother Additional Family Medical History / Comment(s): Mother had depression and anxiety. Father Family Medical History: Sleep Apnea/CPAP/BIPAP <Kaylin Buchanan - Last Filed: 06/22/23 18:24> General Exam <Kaylin Buchanan - Last Filed: 06/22/23 18:24> General appearance: alert, in no apparent distress Head exam: Present: atraumatic, normocephalic, normal inspection Eye exam: Present: normal appearance, PERRL, EOMI. Absent: scleral icterus, conjunctival injection, periorbital swelling ENT exam: Present: normal exam, mucous membranes moist Neck exam: Present: normal inspection. Absent: tenderness, meningismus, lymph adenopathy Respiratory exam: Present: normal lung sounds bilaterally. Absent: respiratory distress, wheezes, rales, rhonchi, stridor Cardiovascular Exam: Present: regular rate, normal rhythm, normal heart sounds. Absent: systolic murmur, diastolic murmur, rubs, gallop, clicks GI/Abdominal exam: Present: soft, normal bowel sounds. Absent: distended, tenderness, guarding, rebound, rigid Extremities exam: Present: normal inspection, full ROM, normal capillary refill. Absent: tenderness, pedal edema, joint swelling, calf tenderness Back exam: Present: normal inspection Neurological exam: Present: alert, oriented X3, CN II-XII intact Psychiatric exam: Present: normal affect, normal mood Skin exam: Present: warm, dry, intact, normal color. Absent: rash <Yvan Alba - Last Filed: 07/02/23 09:19> - General Exam Comments Initial Comments: Visual Physical Exam Vital signs reviewed General: Well-appearing, nontoxic, no acute distress. Head: Normocephalic, atraumatic Eyes: PERRLA, EOMI ENT: Airway patent Chest: Nonlabored breathing Skin: No visual rash, normal skin tone Neuro: Alert and oriented 3 Musculoskeletal: No gross abnormalities (Kaylin Buchanan) Course <Yvan Alba - Last Filed: 07/02/23 09:19> Vital Signs 06/22/23 06/22/23 18:35 23:00 Temperature 98.2 F 98.7 F Pulse Rate 97 79 Respiratory 20 16 Rate Blood Pressure 117/71 117/74 O2 Sat by Pulse 99 97 Oximetry - Reevaluation(s) Reevaluation #1: 06/22/23 21:13 Attic record is reviewed (Yvan Alba) Reevaluation #2: 06/22/23 21:14 Patient symptoms are improving (Yvan Alba) Reevaluation #3: Patient informed of results and questions answered. (Yvan Alba) Reevaluation #4: 06/22/23 21:14 Was pt. sent in by a medical professional or institution (, PA, POMOLOGY TEACHER, urgent care, hospital, or [facility]...) When possible be specific @ -no Did you speak to anyone other than the patient for history (EMS, parent, family, police, friend...)? What history was obtained from this source @ -no Did you review nursing and triage notes (agree or disagree)? Why? @ -agree Are old charts reviewed (outside hosp., previous admission, EMS record, old EKG, old radiological studies, urgent care reports/EKG's, [facility] records)? Report findings @ -yes Differential Diagnosis (chest pain, altered mental status, abdominal pain women, abdominal pain men, vaginal bleeding, weakness, fever, dyspnea, syncope, headache, dizziness, GI bleed, back pain, seizure, CVA, palpatations, mental health, musculoskeletal)? @ -prior EKG interpreted by me (3pts min.). @ -yes X-rays interpreted by me (1pt min.). @ -no CT interpreted by me (1pt min.). @ -yes positive for possible colitis U/S interpreted by me (1pt. min.). @ -yes negative for acute disease What testing was considered but not performed or refused? (CT, X-rays, U/S, labs)? Why? @ -none What meds were considered but not given or refused? Why? @ -none Did you discuss the management of the patient with other professionals (professionals i.e. , PA, POMOLOGY TEACHER, lab, RT, psych nurse, social service coordinator, record systems analyst, teacher, identification officer, case management director)? Give summary @ -no Was smoking cessation discussed for >3mins.? @ -no Was critical care preformed (if so, how long)? @ -no Were there social determinants of health that impacted care today? How? (Homelessness, low income, unemployed, alcoholism, drug addiction, transportation, low edu. Level, literacy, decrease access to med. care, [place] [facility], r ehab)? @ -none Was there de-escalation of care discussed even if they declined (Discuss DNR or withdrawal of care, Hospice)? DNR status @ -no What co-morbidities impacted this encounter? (DM, HTN, Smoking, COPD, CAD, Cancer, CVA, ARF, Chemo, Hep., AIDS, mental health diagnosis, sleep apnea, morbid obesity)? @ -none Was patient admitted / discharged? Hospital course, mention meds given and route , prescriptions, significant lab abnormalities, going to OR and other pertinent info. @ - 27 female to the ER for evaluation of nonspecific abdominal pain. No acute cause found here in the ER patient feels improved and can be discharged home Discharge Undiagnosed new problem with uncertain prognosis? @ -no Drug Therapy requiring intensive monitoring for toxicity (Heparin, Nitro, Insulin, Cardizem)? @ -no Were any procedures done? @ -no Diagnosis/symptom? @ -Abdominal pain Acute, or Chronic, or Acute on Chronic? @ -Acute Uncomplicated (without systemic symptoms) or Complicated (systemic symptoms)? @ -Complicated Side effects of treatment? @ -no Exacerbation, Progression, or Severe Exacerbation? @ -exacerbation Poses a threat to life or bodily function? How? (Chest pain, USA, SD, pneumonia, PE, COPD, DKA, ARF, appy, cholecystitis, CVA, Diverticulitis, Homicidal, Suicidal, threat to staff... and all critical care pts) @ -yes negative for acute disease (Yvan Alba) Reevaluation #5: 06/22/23 21:14 Differential Abdominal Pain Women: Appendicitis, Cholecystitis, diverticulosis, ischemic bowel, pancreatitis, h epatitis, UTI, gastroenteritis, AAA, incarcerated hernia, bowel obstruction, constipation, inflammatory bowel, hepatitis, peptic ulcer disease, splenic infarction, perforated viscus, vulvitis, ovarian torsion, PID, kidney stone, placenta abruption, this is not meant to be an all-inclusive list (Yvan Alba) Medical Decision Making <Kaylin Buchanan - Last Filed: 06/22/23 18:24> - Lab Data Result diagrams: 06/22/23 20:15 06/22/23 20:15 <Jose Alejandro Holcomb - Last Filed: 06/22/23 23:10> - Lab Data Result diagrams: 06/22/23 20:15 06/22/23 20:15 - Radiology Data Radiology results: report reviewed (CT abdomen pelvis shows colitis ultrasound was negative for acute disease), image reviewed <Yvan Alba - Last Filed: 07/02/23 09:19> - Medical Decision Making I performed the QuickNote portion of this chart. Signed Kaylin Buchanan PA-C. (Kaylin Buchanan) Patient care sign out to me by previous shift physician, Dr. Kendrick. Briefly, patient is a 27-year-old female presents to the emergency department for abdominal pain. Approximately 10 days ago she had laparoscopic bilateral tubal ligation performed I [facility]. States that she was fine postoperatively then few days after the procedure started to develop suprapubic abdominal pain. Denies any nausea. No diarrhea. She does complain of some vaginal bleeding. Denies any use but she does report having constitutional symptoms. At the bedside patient is a soft abdomen she is well-appearing in no acute distress. plan at sign out was to follow with pending CT. Patient's lab imaging results were reviewed. Transvaginal ultrasound is unremarkable. Computed tomography scan shows mild inflammation to the bowel wall. Does not appear to be complicated. Patient reevaluated bedside finally stable medical condition. Agents symptoms likely secondary to viral enterocolitis. She is advised follow up with primary care doctor. Patient requesting work note (Jose Alejandro Holcomb) - Lab Data Lab Results 06/22/23 06/22/23 06/22/23 Range/Units 20:15 20:15 20:30 WBC 7.7 (3.8-10.6) k/uL RBC 4.42 (3.80-5.40) m/uL Hgb 13.8 (11.4-16.0) gm/dL Hct 42.0 (34.0-46.0) % MCV 95.1 (80.0-100.0) fL MCH 31.2 (25.0-35.0) pg MCHC 32.9 (31.0-37.0) g/dL RDW 12.4 (11.5-15.5) % Plt Count 368 (150-450) k/uL MPV 7.3 Neutrophils % 61 % Lymphocytes % 29 % Monocytes % 5 % Eosinophils % 3 % Basophils % 1 % Neutrophils # 4.7 (1.3-7.7) k/uL Lymphocytes # 2.3 (1.0-4.8) k/uL Monocytes # 0.4 (0-1.0) k/uL Eosinophils # 0.2 (0-0.7) k/uL Basophils # 0.1 (0-0.2) k/uL Sodium 141 (137-145) mmol/L Potassium 4.0 (3.5-5.1) mmol/L Chloride 112 H (98-107) mmol/L Carbon Dioxide 23 (22-30) mmol/L Anion Gap 6 mmol/L BUN 18 H (7-17) mg/dL Creatinine 0.59 (0.52-1.04) mg/dL Est GFR (CKD-EPI)AfAm >90 (>60 ml/min/1.73 sqM) Est GFR (CKD-EPI)NonAf >90 (>60 ml/min/1.73 sqM) Glucose 86 (74-99) mg/dL Calcium 9.1 (8.4-10.2) mg/dL Total Bilirubin 0.4 (0.2-1.3) mg/dL AST 16 (14-36) U/L ALT 13 (4-34) U/L Alkaline Phosphatase 87 (38-126) U/L C-Reactive Protein <0.5 (<1.0) mg/dL Total Protein 7.5 (6.3-8.2) g/dL Albumin 4.1 (3.5-5.0) g/dL Urine Color Urine Appearance (Clear) Urine pH (5.0-8.0) Ur Specific Keenes (1.001-1.035) Urine Protein (Negative) Urine Glucose (UA) (Negative) Urine Ketones (Negative) Urine Blood (Negative) Urine Nitrite (Negative) Urine Bilirubin (Negative) Urine Urobilinogen (<2.0) mg/dL Ur Leukocyte Esterase (Negative) Urine RBC (0-5) /hpf Urine WBC (0-5) /hpf Ur Squamous Epith Cells (0-4) /hpf Urine Mucus (None) /hpf Urine HCG, Qual Not Detected (Not Detectd) 06/22/23 Range/Units 20:30 WBC (3.8-10.6) k/uL RBC (3.80-5.40) m/uL Hgb (11.4-16.0) gm/dL Hct (34.0-46.0) % MCV (80.0-100.0) fL MCH (25.0-35.0) pg MCHC (31.0-37.0) g/dL RDW (11.5-15.5) % Plt Count (150-450) k/uL MPV Neutrophils % % Lymphocytes % % Monocytes % % Eosinophils % % Basophils % % Neutrophils # (1.3-7.7) k/uL Lymphocytes # (1.0-4.8) k/uL Monocytes # (0-1.0) k/uL Eosinophils # (0-0.7) k/uL Basophils # (0-0.2) k/uL Sodium (137-145) mmol/L Potassium (3.5-5.1) mmol/L Chloride (98-107) mmol/L Carbon Dioxide (22-30) mmol/L Anion Gap mmol/L BUN (7-17) mg/dL Creatinine (0.52-1.04) mg/dL Est GFR (CKD-EPI)AfAm (>60 ml/min/1.73 sqM) Est GFR (CKD-EPI)NonAf (>60 ml/min/1.73 sqM) Glucose (74-99) mg/dL Calcium (8.4-10.2) mg/dL Total Bilirubin (0.2-1.3) mg/dL AST (14-36) U/L ALT (4-34) U/L Alkaline Phosphatase (38-126) U/L C-Reactive Protein (<1.0) mg/dL Total Protein (6.3-8.2) g/dL Albumin (3.5-5.0) g/dL Urine Color Yellow Urine Appearance Clear (Clear) Urine pH 5.5 (5.0-8.0) Ur Specific [place] 1.036 H (1.001-1.035) Urine Protein Trace H (Negative) Urine Glucose (UA) Negative (Negative) Urine Ketones Negative (Negative) Urine Blood Moderate H (Negative) Urine Nitrite Negative (Negative) Urine Bilirubin Negative (Negative) Urine Urobilinogen <2.0 (<2.0) mg/dL Ur Leukocyte Esterase Negative (Negative) Urine RBC 58 H (0-5) /hpf Urine WBC 1 (0-5) /hpf Ur Squamous Epith Cells <1 (0-4) /hpf Urine Mucus Few H (None) /hpf Urine HCG, Qual (Not Detectd) Disposition <Kaylin Buchanan - Last Filed: 06/22/23 18:24> Is patient prescribed a controlled substance at d/c from ED?: No Time of Disposition: 23:11 <Jose Alejandro Holcomb - Last Filed: 06/22/23 23:10> <Yvan Alba - Last Filed: 07/02/23 09:19> Clinical Impression: Enterocolitis Disposition: HOME SELF-CARE Condition: Fair Instructions (If sedation given, give patient instructions): Colitis (ED) Referrals: Santiago Mahoney MD [Primary Care Provider] - 1-2 days
[2023-06-22] MEDS ORDERED: ONDANSETRON 4 MG/2 ML VIAL IVP STA (18:57)
[2023-06-22] MEDS ORDERED: KETOROLAC 15 MG/ML 1 ML VIAL IVP STA (18:57)
[2023-06-22] MEDS ORDERED: SODIUM CHLORIDE 0.9% 1,000 ML IV STA (18:57)
[2023-06-22 20:40] LABS: Basophils # (A) 0.1 k/uL (0-0.2); Basophils % (A) 1 %; Eosinophils # (A) 0.2 k/uL (0-0.7); Eosinophils % (A) 3 %; HGB 13.8 gm/dL (11.4-16.0); Lymphocytes # (A) 2.3 k/uL (1.0-4.8); Lymphocytes % (A) 29 %; MCH 31.2 pg (25.0-35.0); MCHC 32.9 g/dL (31.0-37.0); MCV 95.1 fL (80.0-100.0); Mean Platelet Volume 7.3; Monocytes # (A) 0.4 k/uL (0-1.0); Monocytes % (A) 5 %; Neutrophils # (A) 4.7 k/uL (1.3-7.7); Neutrophils % (A) 61 %; Platelet Count 368 k/uL (150-450); RBC 4.42 m/uL (3.80-5.40); RDW 12.4 % (11.5-15.5); WBC 7.7 k/uL (3.8-10.6)
[2023-06-22 20:58] LABS: ALT 13 U/L (4-34); AST 16 U/L (14-36); African American GFR (CKD) >90 (>60 ml/min/1.73 sqM); Albumin 4.1 g/dL (3.5-5.0); Alkaline Phosphatase 87 U/L (38-126); Anion Gap 6 mmol/L; Blood Urea Nitrogen 18 mg/dL (7-17); C Reactive Protein <0.5 mg/dL (<1.0); Calcium 9.1 mg/dL (8.4-10.2); Carbon Dioxide 23 mmol/L (22-30); Chloride 112 mmol/L (98-107); Glucose 86 mg/dL (74-99); Non-African American GFR(CKD) >90 (>60 ml/min/1.73 sqM); Sodium 141 mmol/L (137-145); Total Bilirubin 0.4 mg/dL (0.2-1.3); Total Protein 7.5 g/dL (6.3-8.2)
--- NOTE | 2023-06-22 21:07 | US ---
EXAMINATION TYPE: US transvaginal DATE OF EXAM: 06/22/2023 COMPARISON: NONE CLINICAL INDICATION: Female, 27 years old with history of Pelvic pain and bleeding; Patient had tubal ligation and 2 cysts removed from left ovary Jun 07 2023, bleeding and pain started 2 days ago, at th at time small child did jump on her belly, otherwise no other changes, TECHNIQUE: TV. Transvaginal sonographic images Date of LMP: unknown EXAM MEASUREMENTS: Uterus: 7.5 x 5.3 x 4.1 cm Endometrial Stripe: 0.7 cm Right Ovary: 2.4 x 2.3 x 2.4 cm Left Ovary: 2.3 x 1.5 x 2.2 cm 1. Uterus: Anteverted wnl 2. Endometrium: wnl 3. Right Ovary: wnl 4. Left Ovary: wnl 5. Bilateral Adnexa: mid free fluid on the left 6. Posterior cul-de-sac: wnl IMPRESSION: Small amount of free fluid. Otherwise unremarkable study.
[2023-06-22] MEDS ORDERED: MORPHINE SULFATE 4 MG/ML SYRINGE IVP STA (21:14)
[2023-06-22 21:33] LABS: Appearance,Urine Clear (Clear); Bilirubin,Urine Negative (Negative); Blood,Urine Moderate (Negative); Color,Urine Yellow; Glucose,Urine (UA) Negative (Negative); Ketones,Urine Negative (Negative); Leukocyte Esterase,Urine Negative (Negative); Mucus,Urine Few /hpf; Nitrite,Urine Negative (Negative); PH, Urine 5.5 (5.0-8.0); Protein,Urine Trace (Negative); RBC,Urine 58 /hpf (0-5); Specific Gravity,Urine 1.036 (1.001-1.035); Squamous Epithelial Cell,Urine <1 /hpf (0-4); Urobilinogen,Urine <2.0 mg/dL (<2.0); WBC,Urine 1 /hpf (0-5)
--- NOTE | 2023-06-22 22:48 | CT ---
EXAMINATION TYPE: CT abdomen pelvis w con DATE OF EXAM: 06/22/2023 HISTORY: tubal ligation 2 weeks ago. pain and bleeding. CT DLP: 1453.2mGycm Automated Exposure Control for Dose Reduction was Utilized. CONTRAST: CT scan of the abdomen and pelvis is performed with IV Contrast, patient injected with 100ml mL of Is ovue 300. COMPARISON: None FINDINGS: LUNG BASES: No significant abnormality is appreciated. LIVER/GB: Single small dependent calcified gallstone. Gallbladder shows no surrounding ill-defined fl uid or fat stranding. PANCREAS: No significant abnormality is seen. SPLEEN: No significant abnormality is seen. ADRENALS: No significant abnormality is seen. KIDNEYS: Excretion from both kidneys into bladder is noted. BOWEL: Low-lying cecum into the right pelvis. Terminal ileum shows mild to moderate concentric wall t hickening image 46. No abnormal small or large bowel dilatation. Mild/moderate wall thickening involv ing the left colon is also present without significant surrounding fluid or fat stranding. No free me senteric air. UTERUS/ADNEXA: Small amount of free fluid in pelvic cul-de-sac axial image 69 is nonspecific finding. LYMPH NODES: No greater than 1cm abdominal or pelvic lymph nodes are appreciated. A few scattered pro minent but subcentimeter lymph nodes throughout the mesentery. OSSEOUS STRUCTURES: No significant abnormality is seen. OTHER: Some skin elizabeth overlie the umbilicus and the bilateral mid abdomen. IMPRESSION: 1. Cannot exclude a underlying complicated enterocolitis including possible involvement of the termin al ileum. Correlate clinically. 2. Single Gallstone without CT evidence for acute cholecystitis.
[2023-06-22 23:36] VITALS: BP 117/74; PULSE 79; RESP 16; TEMP 98.7
== END 2023-06-22 23:40 | disposition home or self-care (01) ==
LOC: EC 18:03
DX: K52.9 Noninfective gastroenteritis and colitis, unspecified (principal); K80.20 Calculus of gallbladder without cholecystitis without obstruction; J45.909 Unspecified asthma, uncomplicated; F41.9 Anxiety disorder, unspecified; F31.9 Bipolar disorder, unspecified; F12.90 Cannabis use, unspecified, uncomplicated; Z79.899 Other long term (current) drug therapy
CPT/HCPCS: 36415; 80053; 85025; 86140; 81001; 81025; 93975; 76830; 74177; 99284; 96374; 96375 ×2; J2270; J2405; J1885; Q9967

== ENCOUNTER 2023-07-20 12:10 | Emergency (ER) | payer OTHER ==
--- NOTE | 2023-07-20 12:29 | ED ---
Female Urogenital HPI - General Source: patient, RN notes reviewed Mode of arrival: ambulatory Limitations: no limitations <Kaylin Buchanan - Last Filed: 07/20/23 12:28> - History of Present Illness MD Complaint: dysuria -: hour(s) Location: perineum, suprapubic Radiation: suprapubic, periumbilical Severity: mild Severity scale (1-10): 2 Quality: dull, burning, aching Consistency: constant Improves with: none Worsens with: none Patient : No Associated Symptoms: headaches <Yvan Alba - Last Filed: 07/29/23 18:36> - General Chief complaint: Urogenital Stated complaint: Back pain, ABD pain Time Seen by Provider: 07/20/23 12:28 - History of Present Illness Initial comments: This is a 27 year old female who presents to the emergency department for right flank pain and abdominal pain. Symptoms began last night. She has associated nausea. Her urine is cloudy and pain increases with urination. Reports a hx of kidney stones but states that this feels different. (Kaylin Buchanan) This is a 19-year-old female to the ER for evaluation of flank pain and belly pain. Increase in urination increase in frequency of urination and dysuria. No fevers (Yvan Alba) - Related Data Home Medications Medication Instructions Recorded Confirmed Cariprazine HCl [Vraylar] 3 mg PO HS 06/22/23 06/22/23 Dextroamphetamine/Amphetamine 15 mg PO DAILY@1800 06/22/23 06/22/23 [Adderall] Dextroamphetamine/Amphetamine 20 mg PO BID@0600,1400 06/22/23 06/22/23 [Adderall] Montelukast [Singulair] 10 mg PO DAILY PRN 06/22/23 06/22/23 Rimegepant Sulfate [Nurtec Odt] 75 mg PO DAILY PRN 06/22/23 06/22/23 Previous Rx's Medication Instructions Recorded Nitrofurantoin Monohyd/M-Cryst 100 mg PO Q12HR #10 cap 07/20/23 [Macrobid] Phenazopyridine [Pyridium] 200 mg PO TID #6 tablet 07/20/23 Allergies Allergy/AdvReac Type Severity Reaction Status Date / Time codeine Allergy Rash/Hives/ Verified 07/20/23 12:19 Nausea Review of Systems ROS Other: All systems not noted in ROS Statement are negative. <Kaylin Buchanan - Last Filed: 07/20/23 12:28> ROS Other: All systems not noted in ROS Statement are negative. <Yvan Alba - Last Filed: 07/29/23 18:36> ROS Statement: Those systems with pertinent positive or pertinent negative responses have been documented in the HPI. 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 Date of last positivie culture/infection: 11/22 MDRO Source:: left ankle Past Surgical History: Tonsillectomy Additional Past Surgical History / Comment(s): apicoectomy front tooth,pyloric stenosis surgery as Past Anesthesia/Blood Transfusion Reactions: No Reported Reaction Past Psychological History: Anxiety, Bipolar, Depression, Panic Disorder Smoking Status: Never smoker Past Alcohol Use History: Occasional Past Drug Use History: Marijuana - Past Family History Brother(s) Family Medical History: Blood Disorder, Deep Vein Thrombosis (DVT), Pulmonary Embolus Additional Family Medical History / Comment(s): antithrombin 3 bleeding disorder Mother Additional Family Medical History / Comment(s): Mother had depression and anxiety. Father Family Medical History: Sleep Apnea/CPAP/BIPAP <aKylin Buchanan - Last Filed: 07/20/23 12:28> General Exam Limitations: no limitations <Kaylin Buchanan - Last Filed: 07/20/23 12:28> General appearance: alert, in no apparent distress Head exam: Present: atraumatic, normocephalic, normal inspection Eye exam: Present: normal appearance, PERRL, EOMI. Absent: scleral icterus, conjunctival injection, periorbital swelling ENT exam: Present: normal exam, mucous membranes moist Neck exam: Present: normal inspection. Absent: tenderness, meningismus, lymphadenopathy Respiratory exam: Present: normal lung sounds bilaterally. Absent: respiratory distress, wheezes, rales, rhonchi, stridor Cardiovascular Exam: Present: regular rate, normal rhythm, normal heart sounds. Absent: systolic murmur, diastolic murmur, rubs, gallop, clicks GI/Abdominal exam: Present: soft, normal bowel sounds. Absent: distended, tenderness, guarding, rebound, rigid Extremities exam: Present: normal inspection, full ROM, normal capillary refill. Absent: tenderness, pedal edema, joint swelling, calf tenderness Back exam: Present: normal inspection Neurological exam: Present: alert, oriented X3, CN II-XII intact Psychiatric exam: Present: normal affect, normal mood Skin exam: Present: warm, dry, intact, normal color. Absent: rash <Yvan Alba - Last Filed: 07/29/23 18:36> - General Exam Comments Initial Comments: Visual Physical Exam Vital signs reviewed General: Well-appearing, nontoxic, no acute distress. Head: Normocephalic, atraumatic Eyes: PERRLA, EOMI ENT: Airway patent Chest: Nonlabored breathing Skin: No visual rash, normal skin tone Neuro: Alert and oriented 3 Musculoskeletal: No gross abnormalities (Kaylin Buchanan) Course <Yavn Alba - Last Filed: 07/29/23 18:36> Vital Signs 07/20/23 12:16 Temperature 97.9 F Pulse Rate 90 Respiratory 16 Rate Blood Pressure 134/79 O2 Sat by Pulse 100 Oximetry - Reevaluation(s) Reevaluation #1: medical records reviewed (Yvan Alba) Reevaluation #2: Patient symptoms unchanged (Yvan Alba) Reevaluation #3: Patient informed of results and questions answered (Yvan Alba) Reevaluation #4: Was pt. sent in by a medical professional or institution (, PA, [employer] ARCHITECT, urgent care, hospital, or alf...) When possible be specific @ -no Did you speak to anyone other than the patient for history (EMS, parent, family, police, friend...)? What history was obtained from this source @ -no Did you review nursing and triage notes (agree or disagree)? Why? @ -agree Are old charts reviewed (outside hosp., previous admission, EMS record, old EKG, old radiological studies, urgent care reports/EKG's, alf records)? Report findings @ -yes Differential Diagnosis (chest pain, altered mental status, abdominal pain women, abdominal pain men, vaginal bleeding, weakness, fever, dyspnea, syncope, headache, dizziness, GI bleed, back pain, seizure, CVA, palpatations, mental health, musculoskeletal)? @ -prior EKG interpreted by me (3pts min.). @ -no X-rays interpreted by me (1pt min.). @ -no CT interpreted by me (1pt min.). @ -no U/S interpreted by me (1pt. min.). @ -no What testing was considered but not performed or refused? (CT, X-rays, U/S, labs)? Why? @ -none What meds were considered but not given or refused? Why? @ -none Did you discuss the management of the patient with other professionals (professionals i.e. , PA, [employer] ARCHITECT, lab, RT, psych nurse, clinical social work aide, market research intern, teacher, data officer, case packer)? Give summary @ -no Was smoking cessation discussed for >3mins.? @ -no Was critical care preformed (if so, how long)? @ -no Were there social determinants of health that impacted care today? How? ( Homelessness, low income, unemployed, alcoholism, drug addiction, transportation, low edu. Level, literacy, decrease access to med. care, long-term, rehab)? @ -none Was there de-escalation of care discussed even if they declined (Discuss DNR or withdrawal of care, Hospice)? DNR status @ -no What co-morbidities impacted this encounter? (DM, HTN, Smoking, COPD, CAD, Cancer, CVA, ARF, Chemo, Hep., AIDS, mental health diagnosis, sleep apnea, morbid obesity)? @ -none Was patient admitted / discharged? Hospital course, mention meds given and route, prescriptions, significant lab abnormalities, going to OR and other pertinent info. @ - 28 female to ER for evaluation of lower back pain abdominal pain positive for urinary tract infection placed on antibiotics and can be discharged home Discharged Undiagnosed new problem with uncertain prognosis? @ -no Drug Therapy requiring intensive monitoring for toxicity (Heparin, Nitro, Insulin, Cardizem)? @ -no Were any procedures done? @ -no Diagnosis/symptom? @ -UTI and abdominal pain Acute, or Chronic, or Acute on Chronic? @ -Acute Uncomplicated (without systemic symptoms) or Complicated (systemic symptoms)? @ -Complicated Side effects of treatment? @ -no Exacerbation, Progression, or Severe Exacerbation? @ -exacerbation Poses a threat to life or bodily function? How? (Chest pain, [place], [place], pneumonia, PE, COPD, DKA, ARF, appy, cholecystitis, CVA, Diverticulitis, Homicidal, Suicidal, threat to staff... and all critical care pts) @ -no (Yvan Alba) Medical Decision Making <Kaylin Buchanan - Last Filed: 07/20/23 12:28> - Lab Data Result diagrams: 07/20/23 12:47 07/20/23 12:47 <Yvan Alba - Last Filed: 07/29/23 18:36> - Medical Decision Making I performed the QuickNote portion of this chart. Signed Kaylin Buchanan PA-C. (Kaylin Buchanan) 28 female to ER for evaluation of lower back pain abdominal pain positive for urinary tract infection placed on antibiotics and can be discharged home (Yvan Alba) - Lab Data Lab Results 07/20/23 07/20/23 07/20/23 Range/Units 12:23 12:23 12:47 WBC 7.2 (3.8-10.6) k/uL RBC 4.41 (3.80-5.40) m/uL Hgb 13.6 (11.4-16.0) gm/dL Hct 41.7 (34.0-46.0) % MCV 94.5 (80.0-100.0) fL MCH 30.9 (25.0-35.0) pg MCHC 32.7 (31.0-37.0) g/dL RDW 12.7 (11.5-15.5) % Plt Count 313 (150-450) k/uL MPV 7.4 Neutrophils % 64 % Lymphocytes % 27 % Monocytes % 5 % Eosinophils % 2 % Basophils % 0 % Neutrophils # 4.6 (1.3-7.7) k/uL Lymphocytes # 1.9 (1.0-4.8) k/uL Monocytes # 0.4 (0-1.0) k/uL Eosinophils # 0.2 (0-0.7) k/uL Basophils # 0.0 (0-0.2) k/uL Sodium (137-145) mmol/L Potassium (3.5-5.1) mmol/L Chloride (98-107) mmol/L Carbon Dioxide (22-30) mmol/L Anion Gap mmol/L BUN (7-17) mg/dL Creatinine (0.52-1.04) mg/dL Est GFR (CKD-EPI)AfAm (>60 ml/min/1.73 sqM) Est GFR (CKD-EPI)NonAf (>60 ml/min/1.73 sqM) Glucose (74-99) mg/dL Plasma Lactic Acid Huang (0.7-2.0) mmol/L Calcium (8.4-10.2) mg/dL Total Bilirubin (0.2-1.3) mg/dL AST (14-36) U/L ALT (4-34) U/L Alkaline Phosphatase (38-126) U/L Total Protein (6.3-8.2) g/dL Albumin (3.5-5.0) g/dL Urine Color Colorless Urine Appearance Cloudy H (Clear) Urine pH 6.5 (5.0-8.0) Ur Specific [place] 1.010 (1.001-1.035) Urine Protein Trace H (Negative) Urine Glucose (UA) Negative (Negative) Urine Ketones Negative (Negative) Urine Blood Trace H (Negative) Urine Nitrite Negative (Negative) Urine Bilirubin Negative (Negative) Urine Urobilinogen <2.0 (<2.0) mg/dL Ur Leukocyte Esterase Moderate H (Negative) Urine RBC 5 (0-5) /hpf Urine WBC 19 H (0-5) /hpf Ur Squamous Epith Cells 1 (0-4) /hpf Urine Bacteria Occasional H (None) /hpf Urine HCG, Qual Not Detected (Not Detectd) 07/20/23 07/20/23 Range/Units 12:47 12:47 WBC (3.8-10.6) k/uL RBC (3.80-5.40) m/uL Hgb (11.4-16.0) gm/dL Hct (34.0-46.0) % MCV (80.0-100.0) fL MCH (25.0-35.0) pg MCHC (31.0-37.0) g/dL RDW (11.5-15.5) % Plt Count (150-450) k/uL MPV Neutrophils % % Lymphocytes % % Monocytes % % Eosinophils % % Basophils % % Neutrophils # (1.3-7.7) k/uL Lymphocytes # (1.0-4.8) k/uL Monocytes # (0-1.0) k/uL Eosinophils # (0-0.7) k/uL Basophils # (0-0.2) k/uL Sodium 141 (137-145) mmol/L Potassium 4.3 (3.5-5.1) mmol/L Chloride 109 H (98-107) mmol/L Carbon Dioxide 26 (22-30) mmol/L Anion Gap 6 mmol/L BUN 10 (7-17) mg/dL Creatinine 0.69 (0.52-1.04) mg/dL Est GFR (CKD-EPI)AfAm >90 (>60 ml/min/1.73 sqM) Est GFR (CKD-EPI)NonAf >90 (>60 ml/min/1.73 sqM) Glucose 102 H (74-99) mg/dL Plasma Lactic Acid Huang 1.0 (0.7-2.0) mmol/L Calcium 9.3 (8.4-10.2) mg/dL Total Bilirubin 0.5 (0.2-1.3) mg/dL AST 18 (14-36) U/L ALT 12 (4-34) U/L Alkaline Phosphatase 104 (38-126) U/L Total Protein 7.7 (6.3-8.2) g/dL Albumin 4.4 (3.5-5.0) g/dL Urine Color Urine Appearance (Clear) Urine pH (5.0-8.0) Ur Specific [place] (1.001-1.035) Urine Protein (Negative) Urine Glucose (UA) (Negative) Urine Ketones (Negative) Urine Blood (Negative) Urine Nitrite (Negative) Urine Bilirubin (Negative) Urine Urobilinogen (<2.0) mg/dL Ur Leukocyte Esterase (Negative) Urine RBC (0-5) /hpf Urine WBC (0-5) /hpf Ur Squamous Epith Cells (0-4) /hpf Urine Bacteria (None) /hpf Urine HCG, Qual (Not Detectd) Disposition <Kaylin Buchanan - Last Filed: 07/20/23 12:28> Is patient prescribed a controlled substance at d/c from ED?: No Time of Disposition: 15:15 <Yvan Alba - Last Filed: 07/29/23 18:36> Clinical Impression: Urinary tract infection Disposition: HOME SELF-CARE Condition: Good Instructions (If sedation given, give patient instructions): Urinary Tract Infection in Women (ED) Prescriptions: Nitrofurantoin Monohyd/M-Cryst [Macrobid] 100 mg PO Q12HR #10 cap Phenazopyridine [Pyridium] 200 mg PO TID #6 tablet Referrals: Santiago Mahoney MD [Primary Care Provider] - 1-2 days
[2023-07-20 12:31] VITALS: BP 134/79; PULSE 90; RESP 16; TEMP 97.9
[2023-07-20 12:57] LABS: Basophils % (A) 0 %; Eosinophils # (A) 0.2 k/uL (0-0.7); Eosinophils % (A) 2 %; HCT 41.7 % (34.0-46.0); HGB 13.6 gm/dL (11.4-16.0); Lymphocytes # (A) 1.9 k/uL (1.0-4.8); Lymphocytes % (A) 27 %; MCH 30.9 pg (25.0-35.0); MCHC 32.7 g/dL (31.0-37.0); MCV 94.5 fL (80.0-100.0); Mean Platelet Volume 7.4; Monocytes # (A) 0.4 k/uL (0-1.0); Monocytes % (A) 5 %; Neutrophils # (A) 4.6 k/uL (1.3-7.7); Neutrophils % (A) 64 %; Platelet Count 313 k/uL (150-450); RBC 4.41 m/uL (3.80-5.40); RDW 12.7 % (11.5-15.5); WBC 7.2 k/uL (3.8-10.6)
[2023-07-20 13:00] LABS: Appearance,Urine Cloudy (Clear); Bacteria,Urine Occasional /hpf; Bilirubin,Urine Negative (Negative); Blood,Urine Trace (Negative); Color,Urine Colorless; Glucose,Urine (UA) Negative (Negative); Ketones,Urine Negative (Negative); Leukocyte Esterase,Urine Moderate (Negative); Nitrite,Urine Negative (Negative); PH, Urine 6.5 (5.0-8.0); Protein,Urine Trace (Negative); RBC,Urine 5 /hpf (0-5); Squamous Epithelial Cell,Urine 1 /hpf (0-4); Urobilinogen,Urine <2.0 mg/dL (<2.0); WBC,Urine 19 /hpf (0-5)
[2023-07-20 13:08] LABS: ALT 12 U/L (4-34); AST 18 U/L (14-36); African American GFR (CKD) >90 (>60 ml/min/1.73 sqM); Albumin 4.4 g/dL (3.5-5.0); Alkaline Phosphatase 104 U/L (38-126); Anion Gap 6 mmol/L; Blood Urea Nitrogen 10 mg/dL (7-17); Calcium 9.3 mg/dL (8.4-10.2); Carbon Dioxide 26 mmol/L (22-30); Chloride 109 mmol/L (98-107); Glucose 102 mg/dL (74-99); Non-African American GFR(CKD) >90 (>60 ml/min/1.73 sqM); Potassium 4.3 mmol/L (3.5-5.1); Sodium 141 mmol/L (137-145); Total Bilirubin 0.5 mg/dL (0.2-1.3); Total Protein 7.7 g/dL (6.3-8.2)
[2023-07-20] MEDS: PHENAZOPYRIDINE 100 MG TAB PO STA (15:40)
[2023-07-20] MEDS: NITROFURANTOIN MONOHYD/M-CRYST 100 MG CAP PO STA (15:40)
== END 2023-07-20 15:45 | disposition home or self-care (01) ==
LOC: EC 12:10
DX: N39.0 Urinary tract infection, site not specified (principal); J45.909 Unspecified asthma, uncomplicated; F12.90 Cannabis use, unspecified, uncomplicated; Z88.5 Allergy status to narcotic agent; Z86.59 Personal history of other mental and behavioral disorders
CPT/HCPCS: 36415; 80053; 81001; 81025; 83605; 85025; 87077; 87086; 87186; 99284

== ENCOUNTER 2024-02-26 13:01 | Inpatient (IN) | payer OTHER ==
--- NOTE | 2024-02-26 13:19 | ED ---
General Adult HPI - General Source: patient, RN notes reviewed Mode of arrival: ambulatory Limitations: no limitations <Kaelyn Smith - Last Filed: 02/26/24 13:17> - General Source: patient, RN notes reviewed, old records reviewed Mode of arrival: ambulatory Limitations: no limitations - History of Present Illness -: days(s) Location: left Severity scale (1-10): 8 Consistency: constant Improves with: none Worsens with: none Associated Symptoms: malaise, nausea/vomiting, weakness Treatments Prior to Arrival: none <Yvan Alba - Last Filed: 03/06/24 17:28> - General Chief complaint: Urogenital Stated complaint: Abdominal Pain Time Seen by Provider: 02/26/24 13:17 - History of Present Illness Initial comments: Quick [id number] female presents emergency department chief complaint left flank left lower quadrant abdominal pain that has been present over the past moises f a week. Patient was evaluated at [facility] last week for a x- ray of the abdomen was done and she was sent home and told that she was "backed up "patient had a repeat urinalysis in with her primary care provider where she was started on Keflex on Sunday for urinary tract infection. Patient has been having persistent left flank pain, nausea, fevers and chills. (Kaelyn Smith) This is a 28-year-old female to the ER for evaluation of left lower quadrant d omino pain concern for persistent flank pain here in the ER (Yvan Alba) - Related Data Home Medications Medication Instructions Recorded Confirmed Dextroamphetamine/Amphetamine 15 mg PO DAILY@1900 06/22/23 02/26/24 [Adderall] Dextroamphetamine/Amphetamine 20 mg PO BID@0900,1500 06/22/23 02/26/24 [Adderall] Rimegepant Sulfate [Nurtec Odt] 75 mg PO DAILY PRN 06/22/23 02/26/24 Albuterol Inhaler [Ventolin Hfa 1 - 2 puff INHALATION RT-Q6H PRN 02/26/24 02/26/24 Inhaler] Cariprazine HCl [Vraylar] 1.5 mg PO HS 02/26/24 02/26/24 Medroxyprogesterone Acetate 150 mg IM Q90D 02/26/24 02/26/24 [Depo-Provera] Ondansetron [Zofran] 4 mg PO TID PRN 02/26/24 02/26/24 Semaglutide [Wegovy] 0.5 mg SQ FR 02/26/24 02/26/24 clonazePAM [KlonoPIN] 0.5 mg PO TID PRN 02/26/24 02/26/24 Previous Rx's Medication Instructions Recorded cefUROXime axetiL [Ceftin] 500 mg PO BID 10 Days #20 tab 03/02/24 metroNIDAZOLE [Flagyl] 500 mg PO TID #21 tab 03/02/24 Allergies Allergy/AdvReac Type Severity Reaction Status Date / Time codeine Allergy Rash/Hives/ Verified 02/26/24 15:06 Nausea Review of Systems ROS Other: All systems not noted in ROS Statement are negative. <Kaelyn Smith - Last Filed: 02/26/24 13:17> ROS Other: All systems not noted in ROS Statement are negative. <Yvan Alba - Last Filed: 03/06/24 17:28> ROS Statement: Those systems with pertinent positive or pertinent negative responses have been documented in the HPI. 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 Date of last positivie culture/infection: 11/22 MDRO Source:: left ankle Past Surgical History: Tonsillectomy Additional Past Surgical History / Comment(s): apicoectomy front tooth,pyloric stenosis surgery as Past Anesthesia/Blood Transfusion Reactions: No Reported Reaction Past Psychological History: Anxiety, Bipolar, Depression, Panic Disorder Smoking Status: Never smoker Past Alcohol Use History: Occasional Past Drug Use History: Marijuana - Past Family History Brother(s) Family Medical History: Blood Disorder, Deep Vein Thrombosis (DVT), Pulmonary Embolus Additional Family Medical History / Comment(s): antithrombin 3 bleeding disorder Mother Additional Family Medical History / Comment(s): Mother had depression and anxiety. Father Family Medical History: Sleep Apnea/CPAP/BIPAP <Kaelyn Smith - Last Filed: 02/26/24 13:17> General Exam Limitations: no limitations <YonvetoKaelyn walter - Last Filed: 02/26/24 13:17> General appearance: alert, in no apparent distress Head exam: Present: atraumatic, normocephalic, normal inspection Eye exam: Present: normal appearance, PERRL, EOMI. Absent: scleral icterus, conjunctival injection, periorbital swelling ENT exam: Present: normal exam, mucous membranes moist Neck exam: Present: normal inspection. Absent: tenderness, meningismus, lymphadenopathy Respiratory exam: Present: normal lung sounds bilaterally. Absent: respiratory distress, wheezes, rales, rhonchi, stridor Cardiovascular Exam: Present: regular rate, normal rhythm, normal heart sounds. Absent: systolic murmur, diastolic murmur, rubs, gallop, clicks GI/Abdominal exam: Present: soft, normal bowel sounds. Absent: distended, tenderness, guarding, rebound, rigid Extremities exam: Present: normal inspection, full ROM, normal capillary refill. Absent: tenderness, pedal edema, joint swelling, calf tenderness Back exam: Present: normal inspection Neurological exam: Present: alert, oriented X3, CN II-XII intact Psychiatric exam: Present: normal affect, normal mood Skin exam: Present: warm, dry, intact, normal color. Absent: rash <Yvan Alba - Last Filed: 03/06/24 17:28> - General Exam Comments Initial Comments: Visual Physical Exam Vital signs reviewed General: Well-appearing, nontoxic, no acute distress. Head: Normocephalic, atraumatic Eyes: PERRLA, EOMI ENT: Airway patent Chest: Nonlabored breathing Skin: No visual rash, normal skin tone Neuro: Alert and oriented 3 Musculoskeletal: No gross abnormalities (Stieler,Kaelyn) Course <Yvan Alba - Last Filed: 03/06/24 17:28> Vital Signs 02/26/24 02/26/24 02/26/24 13:03 18:21 18:51 Temperature 98.2 F 99.2 F 99.7 F H Pulse Rate 116 H 103 H 109 H Respiratory 18 16 16 Rate Blood Pressure 115/77 104/71 112/71 O2 Sat by Pulse 100 100 100 Oximetry 02/26/24 02/26/24 02/26/24 20:35 21:41 22:15 Temperature 102.5 F H 102.9 F H 102.7 F H Pulse Rate 120 H Respiratory 20 Rate Blood Pressure 110/68 O2 Sat by Pulse 97 Oximetry 02/26/24 23:30 Temperature 102.6 F H Pulse Rate 119 H Respiratory 20 Rate Blood Pressure 115/71 O2 Sat by Pulse 98 Oximetry - Reevaluation(s) Reevaluation #1: 02/26/24 14:40 Medical records reviewed (Yvan Alba) Reevaluation #2: 02/26/24 16:35 Patient symptoms improving (Yvan Alba) Reevaluation #3: 02/26/24 16:35 Patient informed of results questions answered (Yvan Alba) Reevaluation #4: Was pt. sent in by a medical professional or institution (ZEHRA Gray, ASSISTANT CENTER DIRECTOR, urgent care, hospital, or group home...) When possible be specific @ -no Did you speak to anyone other than the patient for history (EMS, parent, family, police, friend...)? What history was obtained from this source @ -no Did you review nursing and triage notes (agree or disagree)? Why? @ -agree Are old charts reviewed (outside hosp., previous admission, EMS record, old EKG, old radiological studies, urgent care reports/EKG's, group home records)? Report findings @ -yes Differential Diagnosis (chest pain, altered mental status, abdominal pain women, abdominal pain men, vaginal bleeding, weakness, fever, dyspnea, syncope, headache, dizziness, GI bleed, back pain, seizure, CVA, palpatations, mental health, musculoskeletal)? @ -prior EKG interpreted by me (3pts min.). @ -yes X-rays interpreted by me (1pt min.). @ -no CT interpreted by me (1pt min.). @ -yes negative for acute disease U/S interpreted by me (1pt. min.). @ -no What testing was considered but not performed or refused? (CT, X-rays, U/S, labs)? Why? @ -none What meds were considered but not given or refused? Why? @ -none Did you discuss the management of the patient with other professionals (professionals i.e. ZEHRA Gray, ASSISTANT CENTER DIRECTOR, lab, RT, psych nurse, rn social work, anodic treater, teacher, state wildlife officer, director case management)? Give summary @ -no Was smoking cessation discussed for >3mins.? @ -no Was critical care preformed (if so, how long)? @ -no Were there social determinants of health that impacted care today? How? (Homelessness, low income, unemployed, alcoholism, drug addiction, transp ortation, low edu. Level, literacy, decrease access to med. care, fdc, rehab)? @ -none Was there de-escalation of care discussed even if they declined (Discuss DNR or withdrawal of care, Hospice)? DNR status @ -no What co-morbidities impacted this encounter? (DM, HTN, Smoking, COPD, CAD, Cancer, CVA, ARF, Chemo, Hep., AIDS, mental health diagnosis, sleep apnea, morbid obesity)? @ -none Was patient admitted / discharged? Hospital course, mention meds given and route, prescriptions, significant lab abnormalities, going to OR and other pertinent info. @ - 28 female with severe flank pain urinary tract infection pyelonephritis and failure of outpatient treatment will admit on IV antibiotics awaiting cultures Admit the pyelonephritis Undiagnosed new problem with uncertain prognosis? @ -no Drug Therapy requiring intensive monitoring for toxicity (Heparin, Nitro, Insulin, Cardizem)? @ -no Were any procedures done? @ -no Diagnosis/symptom? @ - Acute, or Chronic, or Acute on Chronic? @ -Acute Uncomplicated (without systemic symptoms) or Complicated (systemic symptoms)? @ -Complicated Side effects of treatment? @ -no Exacerbation, Progression, or Severe Exacerbation? @ -exacerbation Poses a threat to life or bodily function? How? (Chest pain, [place], HI, pneumonia, PE, COPD, DKA, ARF, appy, cholecystitis, CVA, Diverticulitis, Homicidal, Suicidal, threat to staff... and all critical care pts) @ -Yes with severe illness including pyelonephritis (Yvan Alba) Reevaluation #5: Differential Abdominal Pain Women: Appendicitis, Cholecystitis, diverticulosis, ischemic bowel, pancreatitis, hepatitis, UTI, gastroenteritis, AAA, incarcerated hernia, bowel obstruction, constipation, inflammatory bowel, hepatitis, peptic ulcer disease, splenic infarction, perforated viscus, vulvitis, ovarian torsion, PID, kidney stone, placenta abruption, this is not meant to be an all-inclusive list (Yvan Alba) - Consultations Consultation #1: Spoke with Dr. Mahoney who agrees to admit this patient (Yvan Alba) Medical Decision Making <Kaelyn Smith - Last Filed: 02/26/24 13:17> - Lab Data Result diagrams: 03/02/24 03:51 03/02/24 03:51 - Radiology Data Radiology results: report reviewed (CT abdomen pelvis negative for acute disease), image reviewed <Yvan Alba - Last Filed: 03/06/24 17:28> - Medical Decision Making I completed the quick note portion of this chart signed Kaelyn Smith PA-C (Kaelyn Smith) 28 female with severe flank pain urinary tract infection pyelonephritis and failure of outpatient treatment will admit on IV antibiotics awaiting cultures (Yvan Alba) - Lab Data Lab Results 02/26/24 02/26/24 02/26/24 Range/Units 13:19 14:29 14:29 WBC 15.3 H (3.8-10.6) k/uL RBC 4.40 (3.80-5.40) m/uL Hgb 13.3 (11.4-16.0) gm/dL Hct 41.2 (34.0-46.0) % MCV 93.5 (80.0-100.0) fL MCH 30.2 (25.0-35.0) pg MCHC 32.3 (31.0-37.0) g/dL RDW 12.4 (11.5-15.5) % Plt Count 315 (150-450) k/uL MPV 7.0 Neutrophils % 94 % Lymphocytes % 2 % Monocytes % 2 % Eosinophils % 1 % Basophils % 0 % Neutrophils # 14.5 H (1.3-7.7) k/uL Lymphocytes # 0.4 L (1.0-4.8) k/uL Monocytes # 0.3 (0-1.0) k/uL Eosinophils # 0.1 (0-0.7) k/uL Basophils # 0.0 (0-0.2) k/uL Sodium 136 L (137-145) mmol/L Potassium 3.6 (3.5-5.1) mmol/L Chloride 104 (98-107) mmol/L Carbon Dioxide 22 (22-30) mmol/L Anion Gap 10 mmol/L BUN 8 (7-17) mg/dL Creatinine 0.61 (0.52-1.04) mg/dL Est GFR (CKD-EPI)AfAm >90 (>60 ml/min/1.73 sqM) Est GFR (CKD-EPI)NonAf >90 (>60 ml/min/1.73 sqM) Glucose 111 H (74-99) mg/dL Plasma Lactic Acid Huang (0.7-2.0) mmol/L Calcium 8.8 (8.4-10.2) mg/dL Phosphorus (2.5-4.5) mg/dL Magnesium (1.6-2.3) mg/dL Total Bilirubin 1.4 H (0.2-1.3) mg/dL AST 41 H (14-36) U/L ALT 46 H (4-34) U/L Alkaline Phosphatase 117 (38-126) U/L Total Protein 7.3 (6.3-8.2) g/dL Albumin 4.1 (3.5-5.0) g/dL Lipase 32 (23-300) U/L HCG, Quant <2.4 mIU/mL Urine Color Yellow Urine Appearance Cloudy H (Clear) Urine pH 6.0 (5.0-8.0) Ur Specific [place] 1.026 (1.001-1.035) Urine Protein 1+ H (Negative) Urine Glucose (UA) Negative (Negative) Urine Ketones Negative (Negative) Urine Blood Trace H (Negative) Urine Nitrite Positive H (Negative) Urine Bilirubin Negative (Negative) Urine Urobilinogen <2.0 (<2.0) mg/dL Ur Leukocyte Esterase Small H (Negative) Urine RBC 2 (0-5) /hpf Urine WBC 20 H (0-5) /hpf Ur Squamous Epith Cells 2 (0-4) /hpf Urine Bacteria Occasional H (None) /hpf Urine Mucus Few H (None) /hpf 02/26/24 02/26/24 Range/Units 14:29 14:29 WBC (3.8-10.6) k/uL RBC (3.80-5.40) m/uL Hgb (11.4-16.0) gm/dL Hct (34.0-46.0) % MCV (80.0-100.0) fL MCH (25.0-35.0) pg MCHC (31.0-37.0) g/dL RDW (11.5-15.5) % Plt Count (150-450) k/uL MPV Neutrophils % % Lymphocytes % % Monocytes % % Eosinophils % % Basophils % % Neutrophils # (1.3-7.7) k/uL Lymphocytes # (1.0-4.8) k/uL Monocytes # (0-1.0) k/uL Eosinophils # (0-0.7) k/uL Basophils # (0-0.2) k/uL Sodium (137-145) mmol/L Potassium (3.5-5.1) mmol/L Chloride (98-107) mmol/L Carbon Dioxide (22-30) mmol/L Anion Gap mmol/L BUN (7-17) mg/dL Creatinine (0.52-1.04) mg/dL Est GFR (CKD-EPI)AfAm (>60 ml/min/1.73 sqM) Est GFR (CKD-EPI)NonAf (>60 ml/min/1.73 sqM) Glucose (74-99) mg/dL Plasma Lactic Acid Huang 0.8 (0.7-2.0) mmol/L Calcium (8.4-10.2) mg/dL Phosphorus 3.1 (2.5-4.5) mg/dL Magnesium 1.8 (1.6-2.3) mg/dL Total Bilirubin (0.2-1.3) mg/dL AST (14-36) U/L ALT (4-34) U/L Alkaline Phosphatase (38-126) U/L Total Protein (6.3-8.2) g/dL Albumin (3.5-5.0) g/dL Lipase (23-300) U/L HCG, Quant mIU/mL Urine Color Urine Appearance (Clear) Urine pH (5.0-8.0) Ur Specific [place] (1.001-1.035) Urine Protein (Negative) Urine Glucose (UA) (Negative) Urine Ketones (Negative) Urine Blood (Negative) Urine Nitrite (Negative) Urine Bilirubin (Negative) Urine Urobilinogen (<2.0) mg/dL Ur Leukocyte Esterase (Negative) Urine RBC (0-5) /hpf Urine WBC (0-5) /hpf Ur Squamous Epith Cells (0-4) /hpf Urine Bacteria (None) /hpf Urine Mucus (None) /hpf Disposition <Kaelyn Smith - Last Filed: 02/26/24 13:17> Is patient prescribed a controlled substance at d/c from ED?: No Time of Disposition: 16:30 <Yvan Alba - Last Filed: 03/06/24 17:28> Clinical Impression: Nausea & vomiting, Urinary tract infection, Pyelonephritis, Fever, Failure of outpatient treatment Disposition: ADMITTED IP TO THIS HOSP Condition: Serious
[2024-02-26 13:46] LABS: Appearance,Urine Cloudy (Clear); Bacteria,Urine Occasional /hpf; Bilirubin,Urine Negative (Negative); Blood,Urine Trace (Negative); Color,Urine Yellow; Glucose,Urine (UA) Negative (Negative); Ketones,Urine Negative (Negative); Leukocyte Esterase,Urine Small (Negative); Mucus,Urine Few /hpf; Nitrite,Urine Positive (Negative); Protein,Urine 1+ (Negative); RBC,Urine 2 /hpf (0-5); Specific Gravity,Urine 1.026 (1.001-1.035); Squamous Epithelial Cell,Urine 2 /hpf (0-4); Urobilinogen,Urine <2.0 mg/dL (<2.0); WBC,Urine 20 /hpf (0-5)
--- NOTE | 2024-02-26 13:57 | CT ---
EXAMINATION TYPE: CT abdomen pelvis wo con DATE OF EXAM: 02/26/2024 COMPARISON: 06/22/2023 HISTORY: left flank, LLQ ab pain, hematuria CT DLP: 853.6 mGycm Examination of the solid and hollow viscera is limited given the lack of contrast. FINDINGS: LUNG BASES: No evidence for nodule. No evidence for infiltrate. LIVER/GB: Uncomplicated cholelithiasis. No space-occupying hepatic lesion. PANCREAS: No pancreatic mass identified. No inflammatory process seen. SPLEEN: No evidence for splenomegaly. No intrasplenic lesions seen. ADRENALS: No adrenal nodules identified. No evidence for thickening. KIDNEYS: No evidence for renal mass. No nephrolithiasis. No hydronephrosis. BOWEL: Appendix has a normal appearance. No evidence of bowel obstruction. No inflammatory process. Lymph nodes: No evidence for adenopathy greater than 1 cm. Abdominal aorta: Atheromatous changes seen. No evidence for aneurysm. Genital organs: No significant abnormality. Other: No significant abnormality. IMPRESSION: UNCOMPLICATED CHOLELITHIASIS. OTHERWISE UNREMARKABLE STUDY. [facility] Yoly Spencer, , 02/26/2024 1:54 PM
[2024-02-26 14:40] LABS: Basophils % (A) 0 %; Eosinophils # (A) 0.1 k/uL (0-0.7); Eosinophils % (A) 1 %; HCT 41.2 % (34.0-46.0); HGB 13.3 gm/dL (11.4-16.0); Lymphocytes # (A) 0.4 k/uL (1.0-4.8); Lymphocytes % (A) 2 %; MCH 30.2 pg (25.0-35.0); MCHC 32.3 g/dL (31.0-37.0); MCV 93.5 fL (80.0-100.0); Monocytes # (A) 0.3 k/uL (0-1.0); Monocytes % (A) 2 %; Neutrophils # (A) 14.5 k/uL (1.3-7.7); Neutrophils % (A) 94 %; Platelet Count 315 k/uL (150-450); RDW 12.4 % (11.5-15.5); WBC 15.3 k/uL (3.8-10.6)
[2024-02-26 14:52] LABS: ALT 46 U/L (4-34); AST 41 U/L (14-36); African American GFR (CKD) >90 (>60 ml/min/1.73 sqM); Albumin 4.1 g/dL (3.5-5.0); Alkaline Phosphatase 117 U/L (38-126); Anion Gap 10 mmol/L; Blood Urea Nitrogen 8 mg/dL (7-17); Calcium 8.8 mg/dL (8.4-10.2); Carbon Dioxide 22 mmol/L (22-30); Chloride 104 mmol/L (98-107); Glucose 111 mg/dL (74-99); Lipase 32 U/L (23-300); Non-African American GFR(CKD) >90 (>60 ml/min/1.73 sqM); Potassium 3.6 mmol/L (3.5-5.1); Sodium 136 mmol/L (137-145); Total Bilirubin 1.4 mg/dL (0.2-1.3); Total Protein 7.3 g/dL (6.3-8.2)
[2024-02-26 15:33] LABS: HCG,Quantitative Serum <2.4 mIU/mL
[2024-02-26] MEDS: LEVOFLOXACIN 750MG-D5W PMX 750 MG in DEXTROSE/WATER 1 150ML.BAG IVPB STA (15:33)
[2024-02-26] MEDS: SODIUM CHLORIDE 0.9% 1,000 ML IV STA ×2 (15:36→17:50)
[2024-02-26 15:57] LABS: Magnesium 1.8 mg/dL (1.6-2.3); Phosphorus 3.1 mg/dL (2.5-4.5)
[2024-02-26] MEDS ORDERED: NALOXONE 0.4 MG/ML 1 ML VIAL IV PRN (16:33)
[2024-02-26] MEDS: SODIUM CHLORIDE 0.9% 1,000 ML IV SCH (18:17)
[2024-02-26] MEDS: MORPHINE SULFATE 4 MG/ML SYRINGE IV PRN (18:24)
[2024-02-26] MEDS: ACETAMINOPHEN TAB 325 MG TAB PO PRN ×2 (18:55→22:55)
[2024-02-26] MEDS: LEVOFLOXACIN 750MG-D5W PMX 750 MG in DEXTROSE/WATER 1 150ML.BAG IVPB SCH (19:22)
[2024-02-26] MEDS: IBUPROFEN 400 MG TAB PO PRN (20:43)
[2024-02-27] MEDS ORDERED: AMPICILLIN-SULBACTAM 1.5 GM in SODIUM CHLORIDE 0.9% 50 ML IVPB SCH
[2024-02-27] MEDS: AMPICILLIN-SULBACTAM 3 GM in SODIUM CHLORIDE 0.9% 100 ML IVPB SCH (00:49)
[2024-02-27 06:34] LABS: Basophils % (A) 0 %; Eosinophils % (A) 1 %; HCT 36.2 % (34.0-46.0); HGB 11.7 gm/dL (11.4-16.0); Hypochromasia Slight; Lymphocytes # (A) 0.4 k/uL (1.0-4.8); Lymphocytes % (A) 5 %; MCH 31.3 pg (25.0-35.0); MCHC 32.4 g/dL (31.0-37.0); MCV 96.6 fL (80.0-100.0); Mean Platelet Volume 7.2; Monocytes # (A) 0.3 k/uL (0-1.0); Monocytes % (A) 4 %; Neutrophils # (A) 7.4 k/uL (1.3-7.7); Neutrophils % (A) 89 %; Platelet Count 253 k/uL (150-450); RBC 3.75 m/uL (3.80-5.40); RDW 12.7 % (11.5-15.5); WBC 8.3 k/uL (3.8-10.6)
[2024-02-27 06:50] LABS: ALT 44 U/L (4-34); AST 46 U/L (14-36); African American GFR (CKD) >90 (>60 ml/min/1.73 sqM); Albumin 2.8 g/dL (3.5-5.0); Alkaline Phosphatase 102 U/L (38-126); Anion Gap 7 mmol/L; Blood Urea Nitrogen 5 mg/dL (7-17); Calcium 8.1 mg/dL (8.4-10.2); Carbon Dioxide 21 mmol/L (22-30); Chloride 109 mmol/L (98-107); Glucose 130 mg/dL (74-99); Magnesium 1.9 mg/dL (1.6-2.3); Non-African American GFR(CKD) >90 (>60 ml/min/1.73 sqM); Potassium 3.4 mmol/L (3.5-5.1); Sodium 137 mmol/L (137-145); Total Bilirubin 0.6 mg/dL (0.2-1.3); Total Protein 5.5 g/dL (6.3-8.2)
[2024-02-27] MEDS: LEVOFLOXACIN 750MG-D5W PMX 750 MG in DEXTROSE/WATER 1 150ML.BAG IVPB SCH (13:25)
[2024-02-28] MEDS: ONDANSETRON 4 MG/2 ML VIAL IVP PRN (07:53)
--- NOTE | 2024-02-28 14:49 | HP ---
HISTORY AND PHYSICAL CHIEF COMPLAINT: Fever, chills, back pain. HISTORY OF PRESENT ILLNESS: This is another admission for this 19-year-old white female. She was in the office on the complaining of abdominal pain and urinary tract infection. She was treated, went home and got steadily worse. She began running a fever and developed low back pain as well as abdominal pain and came to the hospital where she was admitted with pyelonephritis. REVIEW OF SYSTEMS: She has had no chest pain, nausea, vomiting, etc. Past medical history, family history, personal and social history revealed that she is allergic to [place], Tylenol with codeine. MEDICATIONS: She is on, 1. Ventolin HFA for asthma. 2. Zyrtec once a day p.r.n. 3. Flonase. 4. Vraylar. 5. Klonopin. 6. Adderall. The remainder of her history is unremarkable. She does smoke. PHYSICAL EXAMINATION: VITAL SIGNS: Normal except for temperature of 99.2. GENERAL: She appeared to be acutely ill. Skin was dry and lymph nodes not enlarged. HEAD, EARS, EYES, NOSE, MOUTH, THROAT: Normal except for dry mucous membranes. CHEST: Clear. CARDIAC: Normal. ABDOMEN: Slightly tender in the upper quadrants. She had flank tenderness. Bowel sounds are present. EXTREMITIES: Normal. NEUROLOGICAL: She is intact. ASSESSMENT: She is admitted to the hospital with diagnosis of pyelonephritis. PLAN: 1. Bedrest. 2. IV fluids. 3. IV antibiotics. MMBENJAMINL / RIANAN: [id number] /
--- NOTE | 2024-02-28 14:50 | PN ---
PROGRESS NOTE DATE OF SERVICE: 02/27/2024 CHIEF COMPLAINT: Pyelonephritis. HISTORY OF PRESENT ILLNESS: This lady is doing fairly well. She still has significant left flank and left upper quadrant pain. She is not vomiting. PHYSICAL EXAMINATION: CHEST: Clear. CARDIAC EXAM: Normal. ABDOMEN: She is tender in the left flank and left upper quadrant. IMPRESSION: Pyelonephritis. PLAN: Continue with IV fluids and antibiotics. MMODL / IJN: [id number] /
--- NOTE | 2024-02-28 20:28 | PN ---
PROGRESS NOTE DATE OF SERVICE: 02/28/2024 CHIEF COMPLAINT: Pyelonephritis. HISTORY OF PRESENT ILLNESS: This lady is still uncomfortable, but improving. Temperature is going down. Her potassium is slightly low and it is noted that her liver function studies are up slightly. She is feeling a little bit better. Left flank pain is improving. PHYSICAL EXAMINATION: ABDOMEN: She is cloth desizing range tender in the upper abdomen and left flank. CHEST: Clear. CARDIAC: Normal. IMPRESSION: 1. Left-sided pyelonephritis. 2. Hypokalemia. 3. Elevated liver function studies. PLAN: 1. Repeat laboratory studies. 2. Continue with IV fluids and antibiotics. MMODL / IJN: [id number] /
[2024-02-29] MEDS ORDERED: SODIUM CHLORIDE 0.9% 100 ML BAG IV ONE (05:35)
[2024-02-29] MEDS ORDERED: MORPHINE SULFATE 4 MG/ML SYRINGE ONE (05:35)
[2024-02-29] MEDS ORDERED: AMPICILLIN-SULBACTAM 3 GM VIAL ONE (05:35)
[2024-02-29] MEDS ORDERED: ACETAMINOPHEN TAB 325 MG TAB PO PRN (08:17)
[2024-02-29] MEDS: BUTALB/APAP/CAFF 50-325-40MG TAB PO PRN (08:53)
[2024-02-29 11:10] LABS: Basophils % (A) 1 %; Eosinophils # (A) 0.1 k/uL (0-0.7); Eosinophils % (A) 2 %; HGB 10.7 gm/dL (11.4-16.0); Lymphocytes # (A) 1.1 k/uL (1.0-4.8); Lymphocytes % (A) 16 %; MCH 30.6 pg (25.0-35.0); MCHC 32.5 g/dL (31.0-37.0); MCV 94.1 fL (80.0-100.0); Mean Platelet Volume 7.6; Monocytes # (A) 0.3 k/uL (0-1.0); Monocytes % (A) 4 %; Neutrophils # (A) 5.1 k/uL (1.3-7.7); Neutrophils % (A) 75 %; Platelet Count 301 k/uL (150-450); RDW 12.7 % (11.5-15.5); WBC 6.8 k/uL (3.8-10.6)
[2024-02-29 11:15] LABS: African American GFR (CKD) >90 (>60 ml/min/1.73 sqM); Anion Gap 3 mmol/L; Blood Urea Nitrogen 4 mg/dL (7-17); Calcium 8.8 mg/dL (8.4-10.2); Carbon Dioxide 23 mmol/L (22-30); Chloride 112 mmol/L (98-107); Glucose 110 mg/dL (74-99); Non-African American GFR(CKD) >90 (>60 ml/min/1.73 sqM); Potassium 3.8 mmol/L (3.5-5.1); Sodium 138 mmol/L (137-145)
--- NOTE | 2024-02-29 23:14 | P.CONS ---
History of Present Illness - Reason for Consult Consult date: 02/29/24 Bacteremia Requesting physician: Trupti Gardner - Chief Complaint Left flank pain x days - History of Present Illness Patient is a 28-year-old female with a past medical history significant for asthma frequent UTI pyloric stenosis presenting to the hospital 3 days ago for evaluation of left flank pain that has been going on for about a week before presentation to the hospital patient was describing the pain to be sharp moderate intensity without any radiation and did have associated burning of urine but no hematuria or suprapubic pain did have a nausea patient previously evaluated at [facility] for the same problem however the patient was sent home pending nothing was wrong subsequently evaluated by the PCP and was started on However the patient did have persistent worsening symptoms for the patient presented to hospital on arrival to the ER patient was afebrile subsequently patient did spike a fever of 102.9 F and the patient did have a temperature of 99.7 yesterday morning patient was not tachycardic hypotensive or hypoxic and no need for supplemental oxygen she did have white count of 15.3 with a left shift creatinine has been normal urine was positive patient blood cultures came back positive with an E. coli that is resistant to Unasyn the patient has been on infectious disease was consulted for further management of antibiotic therapy patient urine culture grew came back negative patient did have abdominal pelvis CT uncomplicated cholelithiasis unremarkable study Review of Systems Positive point and negatives has been mentioned in the HPI, complete review of systems was performed and all other systems are negative 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 Year Discovered:: 11/22 MDRO Source:: left ankle Past Surgical History: Tonsillectomy, Tubal Ligation Additional Past Surgical History / Comment(s): apicoectomy front tooth,pyloric stenosis surgery as Past Anesthesia/Blood Transfusion Reactions: No Reported Reaction Past Psychological History: Anxiety, Bipolar, Depression, Panic Disorder Additional Psychological History / Comment(s): Pt resides with her fiancee. She states she is not really suicidal-just was wanting to give out "a call for help". She states she is not wanting to be . She talks of her wedding, scheduled for January 2018. 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 She is independent. Smoking Status: Vaper Past Alcohol Use History: Occasional Additional Past Alcohol Use History / Comment(s): Pt states she started smoking in 2010 and has been an on and off smoker since then. Past Drug Use History: Marijuana Additional Drug Use History / Comment(s): Pt states she smokes 3 joints a day and last smoked yesterday. - Past Family History Brother(s) Family Medical History: Blood Disorder, Deep Vein Thrombosis (DVT), Pulmonary Embolus Additional Family Medical History / Comment(s): antithrombin 3 bleeding disorder Mother Additional Family Medical History / Comment(s): Mother had depression and anxiety. Father Family Medical History: Sleep Apnea/CPAP/BIPAP Medications and Allergies Home Medications Medication Instructions Recorded Confirmed Type Dextroamphetamine/Amphetamine 15 mg PO DAILY@1900 06/22/23 02/26/24 History [Adderall] Dextroamphetamine/Amphetamine 20 mg PO BID@0900,1500 06/22/23 02/26/24 History [Adderall] Rimegepant Sulfate [Nurtec Odt] 75 mg PO DAILY PRN 06/22/23 02/26/24 History Albuterol Inhaler [Ventolin Hfa 1 - 2 puff INHALATION RT-Q6H PRN 02/26/24 02/26/24 History Inhaler] Cariprazine HCl [Vraylar] 1.5 mg PO HS 02/26/24 02/26/24 History Medroxyprogesterone Acetate 150 mg IM Q90D 02/26/24 02/26/24 History [Depo-Provera] Ondansetron [Zofran] 4 mg PO TID PRN 02/26/24 02/26/24 History Semaglutide [Wegovy] 0.5 mg SQ FR 02/26/24 02/26/24 History clonazePAM [KlonoPIN] 0.5 mg PO TID PRN 02/26/24 02/26/24 History Allergies Allergy/AdvReac Type Severity Reaction Status Date / Time codeine Allergy Rash/Hives/ Verified 02/26/24 15:06 Nausea Physical Exam Vitals: Vital Signs Temp Pulse Pulse Resp BP Pulse Ox 02/29/24 07:46 98.2 F 74 18 110/75 96 02/29/24 01:27 98.0 F 76 17 104/68 97 02/28/24 19:29 98.3 F 67 17 106/70 99 02/28/24 16:40 98.4 F 75 19 104/71 99 02/28/24 14:56 85 17 Intake and Output 02/28/24 02/29/24 02/29/24 22:59 06:59 14:59 Other: Voiding Method Toilet # Voids 0 2 GENERAL DESCRIPTION: Middle-aged female lying in bed, no distress. No tachypnea or accessory muscle of respiration use. HEENT: Shows Pallor , no scleral icterus. Oral mucous membrane is dry. No pharyngeal erythema or thrush NECK: Trachea central, no thyromegaly. LUNGS: Unlabored breathing. Clear to auscultation anteriorly. No wheeze or crackle. HEART: S1, S2, regular rate and rhythm. No loud murmur ABDOMEN: Soft, mild left flank tenderness EXTREMITIES: No edema of feet. SKIN: No rash, no masses palpable. NEUROLOGICAL: The patient is awake, alert, oriented x3, mood and affect normal. Results CBC & Chem 7: 02/29/24 10:51 02/29/24 10:51 Labs: Abnormal Lab Results - Last 24 Hours (Table) 02/29/24 02/29/24 Range/Units 10:51 10:51 RBC 3.50 L (3.80-5.40) m/uL Hgb 10.7 L (11.4-16.0) gm/dL Hct 33.0 L (34.0-46.0) % Chloride 112 H (98-107) mmol/L BUN 4 L (7-17) mg/dL Glucose 110 H (74-99) mg/dL Microbiology - Last 24 Hours (Table) 02/26/24 22:17 Blood Culture Gram Stain - Final Blood Blood Culture - Final Escherichia coli Molecular ID Assessment and Plan (1) Positive blood cultures Current Visit: Yes Status: Acute Code(s): R78.81 - BACTEREMIA SNOMED Code(s): 945588488 (2) Pyelonephritis Current Visit: Yes Status: Acute Code(s): N12 - TUBULO-INTERSTITIAL NEPHRITIS, NOT SPCF ACUTE OR CHRONIC SNOMED Code(s): 72295690 Plan: 1patient presented hospital with left flank pain did have a urinary symptoms positive UA highly concerning for left-sided pyelonephritis the patient urine cultures came back negative patient did have a CT abdominal pelvis did not show any acute abnormality except uncomplicated gallstone and the patient has no right upper quadrant pain or tenderness. 2discontinue Unasyn and Levaquin 3blood cultures will be repeated document clearance of her bacteremia 4we will start patient Rocephin 2 g daily We will follow on clinical condition and cultures to further adjust medication if needed Thank you for this consultation we will follow the patient along with you Dictation was produced using [employer] dictation software. please excuse any grammatical, word or spelling errors. Time with Patient: Greater than 30
[2024-02-29] MEDS: KETOROLAC 15 MG/ML 1 ML VIAL IVP PRN (23:21)
[2024-03-01] MEDS: clonazePAM 0.5 MG TAB PO PRN (00:52)
[2024-03-01 09:45] LABS: HCT 31.7 % (37.2-46.3); HGB 10.6 g/dL (12.0-15.0); MCH 31.6 pg (27.0-32.0); MCHC 33.4 g/dL (32.0-37.0); MCV 94.6 FL (80.0-97.0); Mean Platelet Volume 10.5 FL (9.5-12.2); NRBC Per 100 WBC 0 X 10*3/uL (0.00-0.01); Platelet Count 280 X 10*3/uL (140-440); RBC 3.35 X 10*6/uL (4.10-5.20); RDW 13.2 % (11.5-14.5); WBC 7.72 X 10*3/uL (4.50-10.00)
[2024-03-01 10:31] LABS: Basophils # (M) 0 X 10*3/uL (0.00-0.10); Eosinophils # (M) 0.15 X 10*3/uL (0.04-0.35); Lymphocytes # (M) 2.24 X 10*3/uL (0.90-5.00); Monocytes # (M) 0.23 X 10*3/uL (0.20-1.00); Neutrophils % (M) 66 %; RBC Morphology Normal (Normal)
[2024-03-01 11:15] LABS: BUN/Creat Ratio 13.33 Ratio (12.00-20.00); Calcium 8.3 mg/dL (8.7-10.3); Carbon Dioxide 20.3 mmol/L (21.6-31.8); Chloride 108 mmol/L (96-109); Glucose 108 mg/dL (70-110); Potassium 3.9 mmol/L (3.5-5.5); Sodium 140 mmol/L (135-145)
[2024-03-01] MEDS: polyethylene glycoL 3350 17 GM POWD.PACK PO SCH (13:06)
[2024-03-01] MEDS: NON FORMULARY DRUG (Dextroamphetamine/Amphetamine [Adderall] 20 MG Tablet) PO SCH (15:04)
[2024-03-01 16:27] LABS: Appearance,Urine Clear (Clear); Bilirubin,Urine Negative (Negative); Blood,Urine Negative (Negative); Color,Urine Colorless; Glucose,Urine (UA) Negative (Negative); Ketones,Urine Negative (Negative); Leukocyte Esterase,Urine Negative (Negative); Nitrite,Urine Negative (Negative); Protein,Urine Negative (Negative); Specific Gravity,Urine 1.008 (1.001-1.035); Urobilinogen,Urine <2.0 mg/dL (<2.0)
--- NOTE | 2024-03-01 16:37 | P.PN ---
Subjective Progress Note Date: 02/29/24 28-year-old female with a past medical history significant for asthma frequent UTI pyloric stenosis presenting to the hospital 3 days ago for evaluation of left flank pain that has been going on for about a week before presentation to the hospital patient was describing the pain to be sharp mod erate intensity without any radiation and did have associated burning of urine but no hematuria or suprapubic pain did have a nausea patient previously evaluated at [facility] for the same problem however the patient was sent home pending nothing was wrong subsequently evaluated by the PCP and was started on However the patient did have persistent worsening symptoms for the patient presented to hospital on arrival to the ER patient was afebrile subsequently patient did spike a fever of 102.9 F and the patient did have a temperature of 99.7 yesterday morning patient was not tachycardic hypotensive or hypoxic and no need for supplemental oxygen she did have white count of 15.3 with a left shift creatinine has been normal urine was positive patient blood cultures came back positive with an E. coli that is resistant to Unasyn the patient has been on infectious disease was consulted for further management of antibiotic therapy patient urine culture grew came back negative patient did have abdominal pelvis CT uncomplicated cholelithiasis unremarkable study --Urine culture has been negative; blood culture positive and repeat cultures have not been ordered -- We will order CBC, CRP, procalcitonin; urine culture x 2; consult ID for further recommendations Objective - Vital Signs Vital signs: Vital Signs Temp 98.2 F 02/29/24 07:46 Pulse 74 02/29/24 07:46 Resp 18 02/29/24 07:46 BP 110/75 02/29/24 07:46 Pulse Ox 96 02/29/24 07:46 FiO2 Intake & Output 02/28/24 02/29/24 02/29/24 18:59 06:59 18:59 Intake Total 100 Balance 100 Intake: Oral 100 Other: Voiding Method Toilet Toilet # Voids 0 - Exam General appearance: alert, in no apparent distress Head exam: Present: atraumatic, normocephalic, normal inspection Eye exam: Present: normal appearance, PERRL, EOMI. Absent: scleral icterus, conjunctival injection, periorbital swelling ENT exam: Present: normal exam, mucous membranes moist Neck exam: Present: normal inspection. Absent: tenderness, meningismus, lymphadenopathy Respiratory exam: Present: normal lung sounds bilaterally. Absent: respiratory distress, wheezes, rales, rhonchi, stridor Cardiovascular Exam: Present: regular rate, normal rhythm, normal heart sounds. Absent: systolic murmur, diastolic murmur, rubs, gallop, clicks GI/Abdominal exam: Present: soft, normal bowel sounds. Absent: distended, tenderness, guarding, rebound, rigid Extremities exam: Present: normal inspection, full ROM, normal capillary refill. Absent: tenderness, pedal edema, joint swelling, calf tenderness Back exam: Present: normal inspection Neurological exam: Present: alert, oriented X3, CN II-XII intact Psychiatric exam: Present: normal affect, normal mood Skin exam: Present: warm, dry, intact, normal color. Absent: rash - Labs CBC & Chem 7: 03/01/24 03:17 03/01/24 03:17 Labs: Microbiology - Last 24 Hours (Table) 02/26/24 22:17 Blood Culture Gram Stain - Preliminary Blood Blood Culture - Preliminary Escherichia coli Molecular ID Assessment and Plan Assessment: 1. Acute pyelonephritis; patient is currently on IV Unasyn and Levaquin --We will continue with current antibiotics and repeat urine culture -Monitor CBC, CRP and procalcitonin 2. Bacteremia; blood culture completed on 02/26/2024 revealed gram-negative bacilli, E. coli that is pansensitive -Will repeat blood cultures and consult ID for recommendations on antibiotic therapy 3. Obesity; patient educated on need for weight reduction 4. History of asthma; not in exacerbation; new with home inhaler therapy 5. Bipolar disorder; we will continue with home medications DVT prophylaxis; CDs CODE STATUS; full code
--- NOTE | 2024-03-01 16:39 | P.PN ---
Subjective Progress Note Date: 03/01/24 28-year-old female with a past medical history significant for asthma frequent UTI pyloric stenosis presenting to the hospital 3 days ago for evaluation of left flank pain that has been going on for about a week before presentation to the hospital patient was describing the pain to be sharp mod erate intensity without any radiation and did have associated burning of urine but no hematuria or suprapubic pain did have a nausea patient previously evaluated at [facility] for the same problem however the patient was sent home pending nothing was wrong subsequently evaluated by the PCP and was started on However the patient did have persistent worsening symptoms for the patient presented to hospital on arrival to the ER patient was afebrile subsequently patient did spike a fever of 102.9 F and the patient did have a temperature of 99.7 yesterday morning patient was not tachycardic hypotensive or hypoxic and no need for supplemental oxygen she did have white count of 15.3 with a left shift creatinine has been normal urine was positive patient blood cultures came back positive with an E. coli that is resistant to Unasyn the patient has been on infectious disease was consulted for further management of antibiotic therapy patient urine culture grew came back negative patient did have abdominal pelvis CT uncomplicated cholelithiasis unremarkable study --Urine culture has been negative; blood culture positive and repeat cultures have not been ordered -- We will order CBC, CRP, procalcitonin; urine culture x 2; consult ID for further recommendations 03/01/2024 Patient is seen and evaluated in room at bedside; to go home patient presented hospital with left flank pain did have a urinary symptoms positive UA highly concerning for left-sided pyelonephritis the patient urine cultures came back negative patient did have a CT abdominal pelvis did not show any acute abnormality except uncomplicated gallstone and the patient has no right upper quadrant pain or tenderness. discontinue Unasyn and Levaquin blood cultures will be repeated document clearance of her bacteremia we will start patient Rocephin 2 g daily Objective - Vital Signs Vital signs: Vital Signs Temp 98.5 F 03/01/24 07:40 Pulse 78 03/01/24 07:40 Resp 17 03/01/24 07:40 BP 117/80 03/01/24 07:40 Pulse Ox 98 03/01/24 07:40 FiO2 Intake & Output 09/27/24 09/28/24 09/28/24 18:59 06:59 18:59 Other: Voiding Method Toilet # Voids 2 1 - Exam General appearance: alert, in no apparent distress Head exam: Present: atraumatic, normocephalic, normal inspection Eye exam: Present: normal appearance, PERRL, EOMI. Absent: scleral icterus, conjunctival injection, periorbital swelling ENT exam: Present: normal exam, mucous membranes moist Neck exam: Present: normal inspection. Absent: tenderness, meningismus, lymphadenopathy Respiratory exam: Present: normal lung sounds bilaterally. Absent: respiratory distress, wheezes, rales, rhonchi, stridor Cardiovascular Exam: Present: regular rate, normal rhythm, normal heart sounds. Absent: systolic murmur, diastolic murmur, rubs, gallop, clicks GI/Abdominal exam: Present: soft, normal bowel sounds. Absent: distended, tenderness, guarding, rebound, rigid Extremities exam: Present: normal inspection, full ROM, normal capillary refill. Absent: tenderness, pedal edema, joint swelling, calf tenderness Back exam: Present: normal inspection Neurological exam: Present: alert, oriented X3, CN II-XII intact Psychiatric exam: Present: normal affect, normal mood Skin exam: Present: warm, dry, intact, normal color. Absent: rash - Labs CBC & Chem 7: 03/01/24 03:17 03/01/24 03:17 Labs: Abnormal Lab Results - Last 24 Hours (Table) 02/29/24 03/01/24 03/01/24 Range/Units 10:51 03:17 03:17 RBC 3.35 L (4.10-5.20) X 10*6/uL Hgb 10.6 L (12.0-15.0) g/dL Hct 31.7 L (37.2-46.3) % Carbon Dioxide 20.3 L (21.6-31.8) mmol/L BUN 8.0 L (9.0-27.0) mg/dL Calcium 8.3 L (8.7-10.3) mg/dL Procalcitonin 1.01 H (0.02-0.50) ng/mL Microbiology - Last 24 Hours (Table) 02/26/24 22:17 Blood Culture Gram Stain - Final Blood Blood Culture - Final Escherichia coli Molecular ID Assessment and Plan Assessment: 1. Acute pyelonephritis; patient is currently on IV Unasyn and Levaquin --We will continue with current antibiotics and repeat urine culture -Monitor CBC, CRP and procalcitonin 2. Bacteremia; blood culture completed on 02/26/2024 revealed gram-negative bacilli, E. coli that is pansensitive -Will repeat blood cultures and consult ID for recommendations on antibiotic therapy 3. Obesity; patient educated on need for weight reduction 4. History of asthma; not in exacerbation; new with home inhaler therapy 5. Bipolar disorder; we will continue with home medications DVT prophylaxis; CDs CODE STATUS; full code
--- NOTE | 2024-03-01 17:13 | P.PN ---
Subjective Progress Note Date: 03/01/24 Principal diagnosis: Reason for follow-up is E. coli bacteremia possibly left-sided pyonephritis Patient is a 28-year-old female with a past medical history significant for asthma frequent UTI pyloric stenosis presenting to the hospital with left-sided flank pain patient has been diagnosed with a left-sided pyelonephritis subsequent blood cultures came back positive for E. coli prompting this consultation patient did have CT abdominal pelvis did not show any hydronephrosis kidney stone or colitis there was evidence of cholelithiasis. On today's evaluation that is 03/01/2024, patient has been afebrile, patient is breathing comfortably and is currently on room air, patient denies having any significant cough no chest pain shortness of breath, patient has been c omplaining of some nausea but no vomiting also complaining of constipation and flank pain has improved. Patient white count 7.72, creatinine 0.6 repeat UA is negative blood culture repeat are currently pending Objective - Vital Signs Vital signs: Vital Signs Temp 98.6 F 03/01/24 14:00 Pulse 84 03/01/24 14:00 Resp 16 03/01/24 14:00 BP 116/71 03/01/24 14:00 Pulse Ox 98 03/01/24 14:00 FiO2 Intake & Output 02/29/24 03/01/24 03/01/24 18:59 06:59 18:59 Intake Total 200 Balance 200 Intake: Oral 200 Other: Voiding Method Toilet # Voids 2 1 3 - Exam GENERAL DESCRIPTION: Middle-age female lying in bed in no distress RESPIRATORY SYSTEM: Unlabored breathing , decreased breath sounds at bases HEART: S1 S2 regular rate and rhythm , ABDOMEN: Soft , no tenderness EXTREMITIES: No edema feet - Labs CBC & Chem 7: 03/01/24 03:17 03/01/24 03:17 Labs: Abnormal Lab Results - Last 24 Hours (Table) 03/01/24 03/01/24 Range/Units 03:17 03:17 RBC 3.35 L (4.10-5.20) X 10*6/uL Hgb 10.6 L (12.0-15.0) g/dL Hct 31.7 L (37.2-46.3) % Carbon Dioxide 20.3 L (21.6-31.8) mmol/L BUN 8.0 L (9.0-27.0) mg/dL Calcium 8.3 L (8.7-10.3) mg/dL Microbiology - Last 24 Hours (Table) 02/29/24 10:51 Blood Culture - Preliminary Blood Assessment and Plan (1) Positive blood cultures Current Visit: Yes Status: Acute Code(s): R78.81 - BACTEREMIA SNOMED Code(s): 924306283 (2) Pyelonephritis Current Visit: Yes Status: Acute Code(s): N12 - TUBULO-INTERSTITIAL NEPHRITIS, NOT SPCF ACUTE OR CHRONIC SNOMED Code(s): 16680878 Plan: 1patient presented hospital with left flank pain did have a urinary symptoms positive UA highly concerning for left-sided pyelonephritis the patient urine cultures came back negative patient did have a CT abdominal pelvis did not show any acute abnormality except uncomplicated gallstone and the patient has no right upper quadrant pain or tenderness. 2blood cultures has been repeated document clearance of her bacteremia, repeat UA is clear 3patient to continue with Rocephin however as the patient insisting on going home may be able to finish therapy with oral Ceftin and close outpatient follow- up Dictation was produced using [employer] dictation software. please excuse any gramm atical, word or spelling errors. Time with Patient: Less than 30
[2024-03-01] MEDS: NON FORMULARY DRUG (Dextroamphetamine/Amphetamine [Adderall] 15 MG Tablet) PO SCH (23:44)
[2024-03-01] MEDS: NON FORMULARY DRUG (Cariprazine Hcl [Vraylar] 1.5 MG Capsule) PO SCH (23:46)
[2024-03-02 07:31] VITALS: BP 103/65; PULSE 87; RESP 16; TEMP 99.4
[2024-03-02 09:18] LABS: Basophils # (A) 0.03 X 10*3/uL (0.00-0.10); Basophils % (A) 0.3 %; Eosinophils % (A) 0.9 %; HCT 32.6 % (37.2-46.3); Lymphocytes # (A) 1.42 X 10*3/uL (0.90-5.00); Lymphocytes % (A) 13.4 %; MCH 30.8 pg (27.0-32.0); MCHC 33.7 g/dL (32.0-37.0); MCV 91.3 FL (80.0-97.0); Mean Platelet Volume 9.8 FL (9.5-12.2); Monocytes # (A) 0.68 X 10*3/uL (0.20-1.00); Monocytes % (A) 6.4 %; NRBC Per 100 WBC 0 X 10*3/uL (0.00-0.01); Neutrophils # (A) 8.28 X 10*3/uL (1.80-7.70); Neutrophils % (A) 78.2 %; Platelet Count 302 X 10*3/uL (140-440); RBC 3.57 X 10*6/uL (4.10-5.20); RDW 12.9 % (11.5-14.5)
[2024-03-02 10:33] LABS: Blood Urea Nitrogen 6.3 mg/dL (9.0-27.0); Calcium 7.9 mg/dL (8.7-10.3); Carbon Dioxide 22.3 mmol/L (21.6-31.8); Chloride 107 mmol/L (96-109); Glucose 123 mg/dL (70-110); Potassium 3.5 mmol/L (3.5-5.5); Sodium 138 mmol/L (135-145)
--- NOTE | 2024-03-02 12:22 | P.DS ---
Providers Date of admission: 02/26/24 16:34 Expected date of discharge: 03/02/24 Attending physician: Santiago Mahoney Consults: 02/29/24 11:59 Consult Physician Routine Consulting Provider: Tenzin Coelho Consult Reason/Comments: Bacteremia Do you want consulting provider notified?: Yes Primary care physician: Santiago Mahoney Hospital Course: 28-year-old female with a past medical history significant for asthma frequent UTI pyloric stenosis presenting to the hospital 3 days ago for evaluation of left flank pain that has been going on for about a week before presentation to the hospital patient was describing the pain to be sharp moderate intensity without any radiation and did have associated burning of urine but no hematuria or suprapubic pain did have a nausea patient previously evaluated at [facility] for the same problem however the patient was sent home pending nothing was wrong subsequently evaluated by the PCP and was started on However the patient did have persistent worsening symptoms for the patient presented to hospital on arrival to the ER patient was afebrile subsequently patient did spike a fever of 102.9 F and the patient did have a temperature of 99.7 yesterday morning patient was not tachycardic hypotensive or hypoxic and no need for supplemental oxygen she did have white count of 15.3 with a left shift creatinine has been normal urine was positive patient blood cultures came back positive with an E. coli that is resistant to Unasyn the patient has been on infectious disease was consulted for further management of antibiotic therapy patient urine culture grew came back negative patient did have abdominal pelvis CT uncomplicated cholelithiasis unremarkable study --Urine culture has been negative; blood culture positive and repeat cultures have not been ordered -- We will order CBC, CRP, procalcitonin; urine culture x 2; consult ID for further recommendations 1. Acute pyelonephritis; patient is currently on IV Unasyn and Levaquin --We will continue with current antibiotics and repeat urine culture -Monitor CBC, CRP and procalcitonin 2. Bacteremia; blood culture completed on 02/26/2024 revealed gram-negative bacilli, E. coli that is pansensitive -Will repeat blood cultures and consult ID for recommendations on antibiotic therapy 3. Obesity; patient educated on need for weight reduction 4. History of asthma; not in exacerbation; new with home inhaler therapy 5. Bipolar disorder; we will continue with home medications 03/01/2024 Patient is seen and evaluated in room at bedside; to go home patient presented hospital with left flank pain did have a urinary symptoms positive UA highly concerning for left-sided pyelonephritis the patient urine cultures came back negative patient did have a CT abdominal pelvis did not show any acute abnormality except uncomplicated gallstone and the patient has no right upper quadrant pain or tenderness. discontinue Unasyn and Levaquin blood cultures will be repeated document clearance of her bacteremia we will start patient Rocephin 2 g daily 03/02/2024; has been evaluated by ID; daily recommended to wait for final blood cultures to be negative prior to discharge; however insists on going home today; ID has cleared patient to go home on Ceftin with close follow-up with primary care physician to follow-up on blood cultures Patient Condition at Discharge: Serious Plan - Discharge Summary Discharge Rx Participant: Yes New Discharge Prescriptions: No Action Ondansetron [Zofran] 4 mg PO TID PRN PRN Reason: Nausea Cariprazine HCl [Vraylar] 1.5 mg PO HS Albuterol Inhaler [Ventolin Hfa Inhaler] 1 - 2 puff INHALATION RT-Q6H PRN PRN Reason: Shortness Of Breath Rimegepant Sulfate [Nurtec Odt] 75 mg PO DAILY PRN PRN Reason: Migraine Headache Dextroamphetamine/Amphetamine [Adderall] 15 mg PO DAILY@1900 Dextroamphetamine/Amphetamine [Adderall] 20 mg PO BID@0900,1500 clonazePAM [KlonoPIN] 0.5 mg PO TID PRN PRN Reason: PANIC ATTACKS Semaglutide [Wegovy] 0.5 mg SQ FR Medroxyprogesterone Acetate [Depo-Provera] 150 mg IM Q90D Discharge Medication List Dextroamphetamine/Amphetamine [Adderall] 15 mg PO DAILY@1900 06/22/23 [History] Dextroamphetamine/Amphetamine [Adderall] 20 mg PO BID@0900,1500 06/22/23 [History] Rimegepant Sulfate [Nurtec Odt] 75 mg PO DAILY PRN 06/22/23 [History] Albuterol Inhaler [Ventolin Hfa Inhaler] 1 - 2 puff INHALATION RT-Q6H PRN 02/26/24 [History] Cariprazine HCl [Vraylar] 1.5 mg PO HS 02/26/24 [History] Medroxyprogesterone Acetate [Depo-Provera] 150 mg IM Q90D 02/26/24 [History] Ondansetron [Zofran] 4 mg PO TID PRN 02/26/24 [History] Semaglutide [Wegovy] 0.5 mg SQ FR 02/26/24 [History] clonazePAM [KlonoPIN] 0.5 mg PO TID PRN 02/26/24 [History] Follow up Appointment(s)/Referral(s): Santiago Mahoney MD [Primary Care Provider] - 1-2 days Activity/Diet/Wound Care/Special Instructions: Pt has meds in pharmacy
--- NOTE | 2024-03-02 14:05 | P.PN ---
Subjective Progress Note Date: 03/02/24 Principal diagnosis: Reason for follow-up is E. coli bacteremia possibly left-sided pyonephritis Patient is a 28-year-old female with a past medical history significant for asthma frequent UTI pyloric stenosis presenting to the hospital with left-sided flank pain patient has been diagnosed with a left-sided pyelonephritis subsequent blood cultures came back positive for E. coli prompting this consultation patient did have CT abdominal pelvis did not show any hydronephrosis kidney stone or colitis there was evidence of cholelithiasis. On today's evaluation that is 03/02/2024, Patient did have low-grade fever of 100.9 F last night however is afebrile this morning patient denies having any chest pain shortness of breath or cough, the patient is breathing comfortably on room air, patient denies any abdominal pain no diarrhea no nausea no vomiting, the patient is feeling better has been insisting on going home. Patient white count is 10.60, creatinine 0.7 repeat UA was negative Objective - Vital Signs Vital signs: Vital Signs Temp 99.4 F 03/02/24 06:50 Pulse 87 03/02/24 07:30 Resp 16 03/02/24 07:30 BP 103/65 03/02/24 06:50 Pulse Ox 97 03/02/24 06:50 FiO2 Intake & Output 03/01/24 03/02/24 03/02/24 18:59 06:59 18:59 Intake Total 200 200 Balance 200 200 Intake: Oral 200 200 Other: Voiding Method Toilet # Voids 1 5 1 - Exam GENERAL DESCRIPTION: Middle-age female lying in bed in no distress RESPIRATORY SYSTEM: Unlabored breathing , decreased breath sounds at bases HEART: S1 S2 regular rate and rhythm , ABDOMEN: Soft , no tenderness EXTREMITIES: No edema feet - Labs CBC & Chem 7: 03/02/24 03:51 03/02/24 03:51 Labs: Abnormal Lab Results - Last 24 Hours (Table) 03/02/24 03/02/24 Range/Units 03:51 03:51 WBC 10.60 H (4.50-10.00) X 10*3/uL RBC 3.57 L (4.10-5.20) X 10*6/uL Hgb 11.0 L (12.0-15.0) g/dL Hct 32.6 L (37.2-46.3) % Immature Gran # 0.09 H (0.00-0.04) X 10*3/uL Neutrophils # 8.28 H (1.80-7.70) X 10*3/uL BUN 6.3 L (9.0-27.0) mg/dL BUN/Creatinine Ratio 9.00 L (12.00-20.00) Ratio Glucose 123 H (70-110) mg/dL Calcium 7.9 L (8.7-10.3) mg/dL Microbiology - Last 24 Hours (Table) 02/29/24 10:51 Blood Culture - Preliminary Blood Assessment and Plan (1) Positive blood cultures Current Visit: Yes Status: Acute Code(s): R78.81 - BACTEREMIA SNOMED Code(s): 733333275 (2) Pyelonephritis Current Visit: Yes Status: Acute Code(s): N12 - TUBULO-INTERSTITIAL NEPHRITIS, NOT SPCF ACUTE OR CHRONIC SNOMED Code(s): 11272535 Plan: 1patient presented hospital with left flank pain did have a urinary symptoms positive UA highly concerning for left-sided pyelonephritis the patient urine cultures came back negative patient did have a CT abdominal pelvis did not show any acute abnormality except uncomplicated gallstone and the patient has no right upper quadrant pain or tenderness. 2blood cultures has been repeated and so far negative repeat UA is negative 3patient did have clinical improvement has been insisting on going home oral Ceftin has been sent we will send a 7-day course of Flagyl as well to cover for possible abdominal source in the close outpatient follow-up Dictation was produced using [employer] dictation software. please excuse any grammatical, word or spelling errors. Time with Patient: Less than 30
== END 2024-03-02 14:51 | disposition home or self-care (01) | DRG 690 ==
LOC: EC 13:01 → 6NMEDSUR 16:34 → OBSVTOIN 16:34 → 1SOBS 19:17 → 4SSUR 02-28 16:22
PROVIDERS: ADMIT Family Medicine; ATTEND Family Medicine
DX: N10 Acute pyelonephritis (principal); R78.81 Bacteremia; K31.1 Adult hypertrophic pyloric stenosis; B96.20 Unspecified Escherichia coli [E. coli] as the cause of diseases classified elsewhere; J45.909 Unspecified asthma, uncomplicated; E66.9 Obesity, unspecified; F17.290 Nicotine dependence, other tobacco product, uncomplicated; F31.9 Bipolar disorder, unspecified; E87.6 Hypokalemia; Z79.899 Other long term (current) drug therapy; Z68.28 Body mass index [BMI] 28.0-28.9, adult; Z87.440 Personal history of urinary (tract) infections
CPT/HCPCS: 36415; 74176; 80048; 80053; 81001; 81003; 83605; 83690; 83735; 84100; 84145; 84702; 85025; 87040; 87077; 87086; 87186; 96361; 96365; 96366; 99285

== ENCOUNTER 2024-08-08 00:32 | Emergency (ER) | payer OTHER ==
[2024-08-08 00:38] VITALS: TEMP 98.2
[2024-08-08] MEDS: HYDROmorphone 1 MG/ML 1 ML SYRINGE IVP STA ×2 (00:56→01:38)
[2024-08-08] MEDS: ONDANSETRON 4 MG/2 ML VIAL IVP STA (02:14)
--- NOTE | 2024-08-08 02:15 | ED ---
Lower Extremity Injury HPI - General Chief Complaint: Extremity Injury, Lower Stated Complaint: L Ankle Injury Time Seen by Provider: 08/08/24 00:40 Source: patient Mode of arrival: EMS Limitations: no limitations - History of Present Illness Initial Comments: 29-year-old female presents emergency department reporting left ankle pain. States that she fell down 2 steps approximately 30 minutes ago and felt a pop in her left ankle. She has been unable to weight-bear. EMS was called and placed a splint to the site. She was given 2 mg of morphine through an IV. She states she still has considerable pain. No numbness, tingling or weakness in her toes. No knee or hip pain. Denies hitting her head. No loss of consciousness. No other alleviating, precipitating or modifying factors - Related Data Home Medications Medication Instructions Recorded Confirmed Albuterol Inhaler [Ventolin Hfa 1 - 2 puff INHALATION RT-Q6H PRN 02/26/24 08/12/24 Inhaler] Medroxyprogesterone Acetate 150 mg IM Q90D 02/26/24 08/12/24 [Depo-Provera] Previous Rx's Medication Instructions Recorded HYDROcodone/APAP 5-325MG [[place] 1 tab PO Q6HR PRN 3 Days #12 tab 08/08/24 5-325] HYDROcodone/APAP 5-325MG [[place] 1 tab PO Q6HR PRN #28 tab 08/13/24 5-325] Allergies Allergy/AdvReac Type Severity Reaction Status Date / Time codeine Allergy Rash/Hives/ Verified 08/13/24 13:33 Nausea Review of Systems ROS Statement: Those systems with pertinent positive or pertinent negative responses have been documented in the HPI. ROS Other: All systems not noted in ROS Statement are negative. 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 Date of last positivie culture/infection: 11/22 MDRO Source:: left ankle Past Surgical History: Tonsillectomy, Tubal Ligation Additional Past Surgical History / Comment(s): apicoectomy front tooth,pyloric stenosis surgery as infant Past Anesthesia/Blood Transfusion Reactions: No Reported Reaction Past Psychological History: Anxiety, Bipolar, Depression, Panic Disorder Smoking Status: Vaper Past Alcohol Use History: Occasional - Past Family History Brother(s) Family Medical History: Blood Disorder, Deep Vein Thrombosis (DVT), Pulmonary Embolus Additional Family Medical History / Comment(s): antithrombin 3 bleeding disorder Mother Additional Family Medical History / Comment(s): Mother had depression and anxiety. Father Family Medical History: Sleep Apnea/CPAP/BIPAP General Exam Limitations: no limitations General appearance: alert, in no apparent distress Head exam: Present: atraumatic, normocephalic, normal inspection Eye exam: Present: normal appearance, PERRL, EOMI. Absent: scleral icterus, conjunctival injection, periorbital swelling ENT exam: Present: normal exam, mucous membranes moist Neck exam: Present: normal inspection. Absent: tenderness, meningismus, lymphadenopathy Respiratory exam: Present: normal lung sounds bilaterally. Absent: respiratory distress, wheezes, rales, rhonchi, stridor Cardiovascular Exam: Present: regular rate, normal rhythm, normal heart sounds. Absent: systolic murmur, diastolic murmur, rubs, gallop, clicks GI/Abdominal exam: Present: soft, normal bowel sounds. Absent: distended, tenderness, guarding, rebound, rigid Extremities exam: Present: tenderness (To palpation of the left ankle which is in a splint. There is associated edema. No open fracture identified. Patient has intact DP and PT pulses with normal cap refill. Compartments are soft), normal capillary refill, pedal edema (.), other (No knee pain. No hip pain). Absent: joint swelling, calf tenderness Back exam: Present: normal inspection Neurological exam: Present: alert, oriented X3, CN II-XII intact Psychiatric exam: Present: normal affect, normal mood Skin exam: Present: warm, dry, intact, normal color. Absent: rash Course Vital Signs 08/08/24 08/08/24 00:37 02:26 Temperature 98.2 F Pulse Rate 86 81 Respiratory 18 16 Rate Blood Pressure 107/72 102/71 O2 Sat by Pulse 97 96 Oximetry Procedures - Orthopedic Splinting/Casting Injury #1 Side: left Lower Extremity Injury Location: short leg, ankle Lower Extremity Immobilizer: posterior splint, stirrup splint, [place] wrap, synthetic pre-padded splint Other Orthopedic Equipment: crutches Medical Decision Making - Medical Decision Making Was pt. sent in by a medical professional or institution (ZEHRA Gray, CORRUGATOR OPERATOR HELPER, urgent care, hospital, or [place] health care facility...) When possible be specific @ -No Did you speak to anyone other than the patient for history (EMS, parent, family, police, friend...)? What history was obtained from this source @ -Spoke with EMS for history Did you review nursing and triage notes (agree or disagree)? Why? @ -I reviewed and agree with nursing and triage notes Were old charts reviewed (outside hosp., previous admission, EMS record, old EKG, old radiological studies, urgent care reports/EKG's, [place] health care facility records)? Report findings @ -No old charts were reviewed Differential Diagnosis (chest pain, altered mental status, abdominal pain women, abdominal pain men, vaginal bleeding, weakness, fever, dyspnea, syncope, headache, dizziness, GI bleed, back pain, seizure, CVA, palpatations, mental health, musculoskeletal)? @ -Differential Musculoskeletal Muscular strain, contusion, ligament sprain, fracture, arthritis, septic arthritis, bursitis, cellulitis, muscle spasm, nerve compression, DVT, arterial occlusion, herpes zoster, electrolyte abnormality, tumor.... This is not meant to be in all inclusive list EKG interpreted by me (3pts min.). @ -Not done X-rays interpreted by me (1pt min.). @ -X-ray demonstrates distal fibula fracture and posterior tibia fracture with significant widening of the ankle mortise. I did splint the patient and there does appear to be improvement in the alignment of the ankle mortise at this time. CT interpreted by me (1pt min.). @ -None done U/S interpreted by me (1pt. min.). @ -None done What testing was considered but not performed or refused? (CT, X-rays, U/S, labs)? Why? @ -None What meds were considered but not given or refused? Why? @ -None Did you discuss the management of the patient with other professionals (professionals i.e. ZEHRA Gray, CORRUGATOR OPERATOR HELPER, lab, RT, psych nurse, clinical social worker, director construction services, teacher, trust officer, telephonic case manager)? Give summary @ -Spoke with Dr. Capps. States the patient can be discharged and follow-up with Dr. Gramajo outpatient for repair Was smoking cessation discussed for >3mins.? @ -No Was critical care preformed (if so, how long)? @ -No Were there social determinants of health that impacted care today? How? (Homelessness, low income, unemployed, alcoholism, drug addiction, transportation, low edu. Level, literacy, decrease access to med. care, detention, rehab)? @ -No Was there de-escalation of care discussed even if they declined (Discuss DNR or withdrawal of care, Hospice)? DNR status @ -No What co-morbidities impacted this encounter? (DM, HTN, Smoking, COPD, CAD, Cancer, CVA, ARF, Chemo, Hep., AIDS, mental health diagnosis, sleep apnea, morbid obesity)? @ -None Was patient admitted / discharged? Hospital course, mention meds given and route, prescriptions, significant lab abnormalities, going to OR and other pertinent info. @ -Upon arrival the patient is seen and evaluated in room 4. Thorough history and physical exam was performed. Patient was given additional pain medications and an x-ray was performed which demonstrates mildly displaced fracture of the distal fibula and posterior distal tibia. There does appear to be widening of the ankle mortise. Knee x-ray is negative. I did place the patient in a stirrup and posterior molded splint. I reach out an x-ray which demonstrates improved alignment of the ankle mortise with continued acute minimally displaced fractures of the lateral malleolus and posterior malleolus. I discussed the results with the on-call orthopedist, . He states that the patient may follow-up outpatient with Dr. Gramajo who is the foot and ankle specialist. Patient will be given a set of crutches. She is placed on [place] for pain control. She is instructed to rest, ice and elevate the extremity. No weightbearing. She was called in the morning to make an appointment with the orthopedist as she likely needs surgery. Patient understood this. She is to return to the emergency department for any new or worsening symptoms. Patient discharged in stable condition Undiagnosed new problem with uncertain prognosis? @ -No Drug Therapy requiring intensive monitoring for toxicity (Heparin, Nitro, Insulin, Cardizem)? @ -No Were any procedures done? @ -Stirrup and posterior short leg splint Diagnosis/symptom? @ -Acute fall, acute left distal fibula fracture, acute posterior tibia fracture, widening of the ankle mortise Acute, or Chronic, or Acute on Chronic? @ -Acute Uncomplicated (without systemic symptoms) or Complicated (systemic symptoms)? @ -Complicated Side effects of treatment? @ -No Exacerbation, Progression, or Severe Exacerbation? @ -No Poses a threat to life or bodily function? How? (Chest pain, [place], OR, pneumonia, PE, COPD, DKA, ARF, appy, cholecystitis, CVA, Diverticulitis, Homicidal, Suicidal, threat to staff... and all critical care pts) @ -No Disposition Clinical Impression: Left ankle pain, Closed left fibular fracture, Closed left tibial fracture Disposition: HOME SELF-CARE Condition: Stable Instructions (If sedation given, give patient instructions): Ankle Fracture (ED) Additional Instructions: No weightbearing on the left lower extremity. Ambulate with the crutches. Alternate the [place] with the Motrin every 4 hours. Call in the morning to make an appointment with the orthopedic office. They want to see you by next week to determine further care. Take the pain medications as needed. Rest, ice and elevate the extremity. Do not get the splint wet as it will fall apart. Do not take it off. Return to the emergency department for any new or worsening symptoms Prescriptions: HYDROcodone/APAP 5-325MG [[place] 5-325] 1 tab PO Q6HR PRN 3 Days #12 tab PRN Reason: Severe Breakthrough Pain Is patient prescribed a controlled substance at d/c from ED?: Yes When asked, does pt state using other controlled substances?: No If prescribed controlled substance>3 days was MAPS reviewed?: Prescribed <3 Days If opioid is for acute pain is fill amount 7 days or less?: Yes Referrals: Santiago Mahoney MD [Primary Care Provider] - 1-2 days Brock Gramajo DPM [Doctor of Osteopathic Medicine] - 1-2 days Time of Disposition: 02:15
--- NOTE | 2024-08-08 02:17 | XR ---
ADDENDUM - Added by Yamil Arroyo MD on 08/08/2024 2:16 AM (-05:00) EXAM: XR Left Ankle Complete, 3 or More Views CLINICAL HISTORY: ITS.REASON XR Reason: fall down stairs TECHNIQUE: Frontal, lateral and oblique views of the left ankle. COMPARISON: No relevant prior studies available. FINDINGS LEFT IMPRESSION:: Mildly displaced fracture of the distal fibula and posterior, distal tibia. The ankle mortise is grossly symmetric. Overlying cast. EXAM: XR Left Ankle Complete, 3 or More Views CLINICAL HISTORY: ITS.REASON XR Reason: fall down stairs TECHNIQUE: Frontal, lateral and oblique views of the left ankle. COMPARISON: No relevant prior studies available. FINDINGS: Bones/joints: Unremarkable. No acute fracture. No dislocation. Soft tissues: Unremarkable. IMPRESSION: Normal left ankle x-rays. <MYCVCSECTION> Communications: 08/08/24 02:28 Verify Receipt Verified receipt with CHAZ Perez for Dr. Barnett on 08/08 02:28 (-05:00)
[2024-08-08 02:26] VITALS: BP 102/71; PULSE 81; RESP 16
--- NOTE | 2024-08-08 03:26 | XR ---
EXAM: XR Left Knee, 3 Views CLINICAL HISTORY: ITS.REASON XR Reason: prox tib fx? TECHNIQUE: Three views of the left knee. COMPARISON: No relevant prior studies available. FINDINGS: Bones/joints: Unremarkable. No acute fracture. No dislocation. Soft tissues: Unremarkable. IMPRESSION: Normal left knee x-rays.
--- NOTE | 2024-08-08 05:33 | XR ---
EXAMINATION TYPE: XR ankle complete LT DATE OF EXAM: 08/08/2024 CLINICAL INDICATION: Female, 29 years old with history of post splint, TECHNIQUE: Frontal, lateral and oblique images of the left ankle are obtained. COMPARISON: Left ankle x-ray earlier today. FINDINGS: There is new overlying splint material seen which is noted to lower radiographic sensitiv ity. Acute minimally displaced spiral type fracture through the lateral malleolus is redemonstrated w ith stable alignment. Acute minimally displace fractures of the posterior malleolus is also again see n and stable. No new fractures are present. Improved alignment at the ankle mortise is present. IMPRESSION: As above. [facility], , 08/08/2024 5:30 AM
== END 2024-08-08 02:53 | disposition home or self-care (01) ==
LOC: EC 00:32
DX: S82.402A Unspecified fracture of shaft of left fibula, initial encounter for closed fracture (principal); S82.202A Unspecified fracture of shaft of left tibia, initial encounter for closed fracture; F17.290 Nicotine dependence, other tobacco product, uncomplicated; Z88.5 Allergy status to narcotic agent; W10.9XXA Fall (on) (from) unspecified stairs and steps, initial encounter
CPT/HCPCS: 73560; 73610; 99283; 29515; 96374; 96375; 96376; J2405; J1171

== ENCOUNTER → 2024-08-13 | Day surgery (SDC) | payer OTHER ==
[~2024-08-13] MED LIST changes: +DEXAMETHASONE SOD PHOSPHATE 4 MG/ML 1 ML VIAL ONE; +HYDROmorphone (PF) 1 MG/ML ONE; -LACTATED RINGERS 1,000 ML IV SCH; +LIDOCAINE 1% INJ 10MG/ML (20 ML MDV) ONE; +MIDAZOLAM 2 MG/2 ML VIAL ONE; +PROPOFOL 10 MG/ML 20 ML VIAL IV ONE; +ROPIVACAINE 5 MG/ML 30 ML VIAL ONE; +SUCCINYLCHOLINE CHLORIDE 200 MG/10 ML VIAL IV ONE; +fentaNYL (PF) 50 MCG/ML 2 ML AMP ONE
[2024-08-13] MEDS: IV FLUID CONTINUATION 1,000 ML IV ONE (13:43)
[2024-08-13 14:02] LABS: HCT 44.8 % (34.0-46.0); HGB 14.5 gm/dL (11.4-16.0); MCH 30.9 pg (25.0-35.0); MCHC 32.3 g/dL (31.0-37.0); MCV 95.6 fL (80.0-100.0); Mean Platelet Volume 7.2; Platelet Count 416 k/uL (150-450); RBC 4.68 m/uL (3.80-5.40); RDW 13.4 % (11.5-15.5); WBC 7.3 k/uL (3.8-10.6)
[2024-08-13] MEDS: LACTATED RINGERS 1,000 ML IV SCH (14:02)
[2024-08-13] MEDS: ONDANSETRON 4 MG/2 ML VIAL IVP ONE (14:02)
[2024-08-13] MEDS: DEXAMETHASONE SOD PHOSPHATE 4 MG/ML 1 ML VIAL IV ONE (14:03)
[2024-08-13] MEDS: MIDAZOLAM 2 MG/2 ML VIAL IVP ONE (14:19)
[2024-08-13] MEDS: fentaNYL (PF) 50 MCG/ML 2 ML AMP IVP ONE (14:19)
[2024-08-13] MEDS: ceFAZolin 1,000 MG in SODIUM CHLORIDE 0.9% 1,000 ML IRRIGATION ONE (14:57)
--- NOTE | 2024-08-13 16:44 | P.ANPRN ---
Procedure Note - Anesthesia - Nerve Block Performed Left Popliteal Single Time Out Performed: Yes (1418) Date of Procedure: 08/13/24 Procedure Start Time: 14:19 Procedure Stop Time: 14:22 Location of Patient: PreOp Indication: Acute Post-Operative Pain, Requested by Surgeon Specifically requested for management of pain by DrFortino: Brock Gramajo Sedation Type: Sedate with meaningful contact maintained Preparation: Sterile Prep Position: Supine Catheter: None Needle Types: [place]ajunk Needle Gauge: 21 Ultrasound used to visualize needle placement: Yes Ultrasound used to observe medication spread: Yes Injectate: 0.5% Ropivacaine (see comment for volume) (15cc+10cc nacl pf+decadron 4mg) Blood Aspirated: No Pain Paresthesia on Injection Noted: No Resistance on Injection: Normal Image Stored and Saved: Yes Events: Uneventful and Well Tolerated
--- NOTE | 2024-08-13 16:44 | P.ANPRN ---
Procedure Note - Anesthesia - Nerve Block Performed Left Adductor Canal Single Time Out Performed: Yes (1418) Date of Procedure: 08/13/24 Procedure Start Time: 14:23 Procedure Stop Time: : Location of Patient: PreOp Indication: Acute Post-Operative Pain, Requested by Surgeon Specifically requested for management of pain by DrFortino: Brock Gramajo Sedation Type: Sedate with meaningful contact maintained Preparation: Sterile Prep Position: Supine Catheter: None Needle Types: [place] Needle Gauge: 21 Ultrasound used to visualize needle placement: Yes Ultrasound used to observe medication spread: Yes Injectate: 0.5% Ropivacaine (see comment for volume) (15cc+10cc nacl pf +decadron 4mg) Blood Aspirated: No Pain Paresthesia on Injection Noted: No Resistance on Injection: Normal Image Stored and Saved: Yes Events: Uneventful and Well Tolerated
[2024-08-13 16:57] VITALS: TEMP 96.8
--- NOTE | 2024-08-13 17:04 | P.OP ---
Date of Procedure: 08/13/24 Preoperative Diagnosis: 1. Displaced bimalleolar fracture left ankle 2. Ruptured deltoid ligament left ankle 3. Possible ruptured syndesmosis left ankle Postoperative Diagnosis: 1. Same 2. Same Procedure(s) Performed: 1. Open reduction with internal fixation left bimalleolar ankle fracture (lateral and posterior malleolus) 2. Open primary repair of deltoid ligament left ankle Implants: Adan 2.4 mm T plate with locking and nonlocking screws [place] 3.5 mm one third semitubular plate with 3.5 mm locking and nonlocking screws Arthrex fiber tack anchors x 2 Surgeon: Brock Gramajo Estimated Blood Loss (ml): 50 Pathology: none sent Condition: stable Disposition: PACU Description of Procedure: Prior to the patient being brought to the operative room, anesthesia administered a nerve block on the operative extremity. The patient was brought into the op room where timeout was taken to confirm correct patient identifiers, correct laterality of surgery, and correct procedure. Once the staff in the room was in agreement with the timeout, the patient was induced and placed under general anesthesia. The patient was rolled onto the operating table into the prone position. Appropriate padding was placed in the thoracic area as well as any bony prominences. Once positioning of the patient was satisfactory, a well- padded tourniquet was placed on the operative thigh. The operative leg was then prepped and draped in usual manner. The leg was exsanguinated, the knee flexed, and the tourniquet inflated to 250 mmHg. Was directed to the posterior lateral aspect of the ankle. A posterior lateral approach incision was made for the fractures. The incision was deepened down to the subcutaneous tissue careful to identify, avoid, and retract any neurovascular structures and cauterize any bleeding vessels. Blunt dissection was carried down to the fascia over the peroneal and flexor hallucis longus muscle bellies. The fascia was incised and reflected medially and laterally. The intermuscular septum was used to divide the above-described muscle bellies. The muscle was then retracted medial and lateral to expose the posterior aspect of the tibia and the ankle joint. A Adan 2.4 mm T plate was positioned over the posterior malleolar fracture. Fluoroscopy was used to adjust the position until it was properly aligned. Then the plate was temporarily fixated. 2.4 millimeter screws x 2 were placed in the distal holes of the plate across the fracture site. Drilling was done under direct fluoroscopic visualization to avoid the ankle joint. Then attention was directed to the proximal aspect of the plate where another 2.4 millimeter screw was inserted through the plate proximal to the fracture. The screw allowed the plate to compress against the posterior aspect of the tibia and provide antiglide to the plate. The last screw was in the most proximal hole which was a 2.4 mm locking screw. Fluoroscopic imaging showed proper placement of all the screws as well as the plate and the posterior aspect of the tibia. Then attention is directed to the lateral malleolus fracture. The peroneal tendons and soft tissue reflected from the posterior aspect of the lateral malleolus. The fracture fragments were distracted so that the hematoma and soft tissue could be removed. Then the area was thoroughly irrigated. Bone reduction forceps were used to reduce the fracture and then a guidewire was placed across the fracture for temporary fi xation. Fluoroscopy confirmed anatomic alignment of the fracture. A 3.5 mm one third tubular plate was then positioned at the posterior aspect of the lateral malleolus. It was adjusted under fluoroscopy until properly aligned and then it was temporarily fixated. 3.5 mm nonlocking screws were placed through the plate, 1 distal and 1 proximal to the fracture to contour the plate to the bone. Locking screws were placed in the most distal and proximal holes of the plate to maintain positioning. The last screw was through the plate proximal to the fracture however it did not cross the fracture line and allowed for further compression. Fluoroscopic imaging confirmed proper placement of the plate on AP and lateral views as well as anatomic reduction of the fracture. The surgical site was thoroughly irrigated antibiotic saline. The deep fascia over the muscle was closed with 2-0 Vicryl. Superficial fascia Lausier was done with 2-0 Vicryl. Subcutaneous closure done with 4-0 Monocryl. And skin closure done with elizabeth. Under direct live fluoroscopy, stress test of the ankle was performed. There is significant gapping of the medial clear space as well as valgus tilt of the talus in the ankle mortise. There was no abnormal motion at the syndesmosis. The decision at that time was to repair of the deltoid ligament. Attention was directed over the medial malleolus where a linear incision was made down the midline. It was deepened down to the subcutaneous tissue careful to identify, avoid, and retract any neurovascular structures and cauterize any bleeding vessels. The saphenous vein was identified in the anterior aspect of the incision. It was carefully dissected and retracted anteriorly. The medial aspect of the joint space was identified. With valgus stress testing the joint was identifiable. Any interposing soft tissue was removed from the medial clear space. A rongeur was used to remove some the cortical bone on the tip of the medial malleolus to facilitate the anchor placement. Guidewires for 1.3 mm fiber tack anchors were then used for the relief pilot holes for the anchors. After drilling the production or plant engineer was left in place, and then the anchors inserted and impacted down to proper depth. A small amount of tension was placed on the suture to make sure the anchors were locked in place. This was repeated for the second anchor. The incision as well as the medial joint space were thoroughly irrigated with antibiotic saline. The suture on the fiber tack anchors was used to capture the distal components of the deltoid ligament. Once capture the ankle was held in varus, and then the sutures tied down to the medial malleolus. Further stress testing showed no excessive gapping of the medial clear space or valgus tilt of the talus. The wound was irrigated with antibiotic saline. Subcutaneous closure was done with 3-0 Monocryl. Skin closure was done with elizabeth. Arthrex jumpstart was placed over both incisions. A bulky dry dressing is applied to the ankle. The tourniquet was released and capillary refill returned all digits of the foot. The patient was placed in a well-padded, well molded plaster posterior mold/sugar-tong splint. The splint was held in neutral dorsiflexion and slight inversion as a dried. The patient was rolled back into the supine position on the transfer table. At that point anesthesia was reversed and the patient taken recovery vital signs stable.
--- NOTE | 2024-08-13 17:05 | XR ---
EXAMINATION TYPE: XR ankle complete LT, FL guidance operating room Intraoperative/procedural fluorosc opic services were provided. CLINICAL INDICATION:Female, 29 years old with history of LEFT ANKLE FX; , PHH FINDINGS: Postsurgical changes from left ankle fracture ORIF with distal tibia and fibular plates. There is kirit rounding soft tissue swelling. No radiographic evidence for complication. Total fluoroscopy time is 38.2 seconds. DAP: [id number] [id number] Please see the operative/procedural note for further details. [facility], , 08/13/2024 5:03 PM
[2024-08-13] MEDS: HYDROmorphone 0.5 MG/0.5 ML SYRINGE IVP PRN (17:10)
[2024-08-13] MEDS: ONDANSETRON 4 MG/2 ML VIAL IVP STA (18:01)
[2024-08-13 18:09] VITALS: RESP 16
[2024-08-13 18:27] VITALS: BP 126/88; PULSE 88
== END | disposition home or self-care (01) ==
LOC: OR 12:58
PROVIDERS: ATTEND Podiatrist
DX: S82.842A Displaced bimalleolar fracture of left lower leg, initial encounter for closed fracture (principal); S93.422A Sprain of deltoid ligament of left ankle, initial encounter; S93.432A Sprain of tibiofibular ligament of left ankle, initial encounter; I47.10 Supraventricular tachycardia, unspecified; J45.909 Unspecified asthma, uncomplicated; F31.30 Bipolar disorder, current episode depressed, mild or moderate severity, unspecified; F41.9 Anxiety disorder, unspecified; U07.0 Vaping-related disorder; Z88.5 Allergy status to narcotic agent; Z79.899 Other long term (current) drug therapy; X58.XXXA Exposure to other specified factors, initial encounter
CPT/HCPCS: 64447; 81025; 64445; 85027; 73610; 27814; 27695; C1713 ×2; J2250; J0330; J1100; J0690 ×2; J2405; J2003; J3010; J1171 ×2; J2795; J2704

== ENCOUNTER → 2024-08-28 | Outpatient (CLI) | payer OTHER ==
--- NOTE | 2024-08-28 16:57 | US ---
EXAMINATION TYPE: US venous doppler duplex LE LT DATE OF EXAM: 08/28/2024 4:40 PM COMPARISON: NONE CLINICAL INDICATION: Female, 29 years old with history of I80.9 PHLEBITIS AND THROMBOPHLEBITIS; pain post op surgery. , Pain TECHNIQUE: The lower extremity deep venous system is examined utilizing real time linear array sonog carl with graded compression, color doppler sonography, and spectral doppler. SIDE PERFORMED: Left FINDINGS: VESSELS IMAGED: Common Femoral Vein Deep Femoral Vein Greater Saphenous Vein * Femoral Vein Popliteal Vein Small Saphenous Vein * Proximal Calf Veins (* superficial vessels) Left Leg: Negative for DVT, Color Doppler imaging shows patency of the vessels. Spectral waveforms a re within normal limits. IMPRESSION: No evidence of deep vein thrombosis of the left lower extremity. [facility], , 08/28/2024 4:55 PM
== END | disposition home or self-care (01) ==
LOC: RADUSWWP 16:19
PROVIDERS: ATTEND Podiatrist
DX: I80.9 Phlebitis and thrombophlebitis of unspecified site (principal); Z84.89 Family history of other specified conditions